=== PATIENT | male | born 1930 | race Caucasian/White ===

== ENCOUNTER → 2016-09-11 | Outpatient (CLI) | payer OTHER ==
[~2016-09-11] MED LIST: ACT15 PO; ACT30 PO; APIX1TAB3 PO; ATOR10TA88 PO; CALC600T36 PO; CALCTAB5 PO; CEFD1CAP14 PO; CEPH500C PO; COEN200C PO; DABI150C PO; DEXL60CA4 PO; DIGO0.1219 PO; DIGO0.122 PO; ESOM20CA PO; FLEC50TA20 PO; FLV400 PO; FOLI1TAB7 PO; FOLI800T PO; GLIP-197 PO; METO1TAB69 PO; MONT1TAB3 PO; MULT-506 PO; NEOM1SOL8 OTR; NTRGSL/4 UT; NXM/40 PO; PRLSR20 PO; RANI300T PO; TOBRSUS33 OT; TPRSR/100 PO; [UNRECOGNIZED DRUG - OTHER] PO
[2016-09-11 13:10] LABS: HEMATOCRIT 36.3 % (42-52); MEAN CELL VOLUME 97.8 fL (80-100); MEAN CORPUSCULAR HEMOGLOBIN 32.9 pg (25-34); MEAN CORPUSCULAR HGB CONC 33.6 g/dl (32-36); MEAN PLATELET VOLUME 10.6 fL (7.4-10.4); PLATELET COUNT 105 K/uL (130-400); RED BLOOD COUNT 3.71 M/uL (4.7-6.1); WHITE BLOOD COUNT 3.56 K/uL (4.8-10.8)
[2016-09-11 13:43] LABS: ESTIMATED AVERAGE GLUCOSE 143 mg/dl; HA1C FLAG Normal (Normal)
[2016-09-11 13:59] LABS: COMPLETE YES; LYMPH ABS # 0.72 K/uL (1.2-3.4); LYMPHOCYTE % 20.2 %; NEUTROPHILS % 45.6 %; VARIANT LYM ABS # 1.09 K/uL; VARIANT LYMPHOCYTE % 30.7 %
--- NOTE | 2016-09-15 11:24 | CODING QUERY MEDICAL NECESSITY ---
CQSUPPORTING DIAGNOSIS NEEDED A supporting diagnosis is required for the test/procedure performed on this patient in order for us to be reimbursed by the patient's insurance. Please provide a supporting diagnosis for the following test/procedure listed below next to the test name along with your signature. *If there is no additional diagnosis for this patient that would support the following test/procedure please document that below next to the test/procedure. Test(s)/Procedure(s) that require a supporting diagnosis: DOS 09/11/16 GLYCATED HEMOGLOBIN TEST Provider Signature: Date: Thank you Julissa Torres Health Information Management Once completed, please kindly fax back to [phone] For questions please call [phone]
== END | disposition home or self-care (01) ==
LOC: C.LAB1850 12:09
PROVIDERS: ATTEND Internal Medicine
DX: D64.9 Anemia, unspecified (principal); E11.9 Type 2 diabetes mellitus without complications

== ENCOUNTER → 2016-10-06 | Outpatient (CLI) | payer OTHER ==
[2016-10-06 13:11] LABS: MEAN CELL VOLUME 97.8 fL (80-100); MEAN CORPUSCULAR HEMOGLOBIN 32.9 pg (25-34); MEAN CORPUSCULAR HGB CONC 33.6 g/dl (32-36); MEAN PLATELET VOLUME 10.5 fL (7.4-10.4); PLATELET COUNT 110 K/uL (130-400); RED BLOOD COUNT 3.68 M/uL (4.7-6.1)
[2016-10-06 13:42] LABS: BASO ABS # 0.03 K/uL (0-0.2); BASOPHIL % 0.9 % (0-2); COMPLETE YES; EOSINOPHIL % 1.8 %; LYMPH ABS # 0.64 K/uL (1.2-3.4); LYMPHOCYTE % 16.8 %; NEUTROPHILS % 36.3 %; VARIANT LYM ABS # 1.44 K/uL
== END | disposition home or self-care (01) ==
LOC: C.LAB1850 12:19
PROVIDERS: ATTEND Internal Medicine
DX: I25.10 Atherosclerotic heart disease of native coronary artery without angina pectoris (principal); D64.9 Anemia, unspecified

== ENCOUNTER 2016-10-20 02:26 | Observation (INO) | payer OTHER ==
[~2016-10-20] VITALS: Ht 172.7 cm; Wt 93.6 kg
[~2016-10-20 02:26] MED LIST changes: -ACT15 PO; -ACT30 PO; -APIX1TAB3 PO; -CALC600T36 PO; -CEFD1CAP14 PO; -CEPH500C PO; -DIGO0.1219 PO; -ESOM20CA PO; -FOLI1TAB7 PO; -FOLI800T PO; -NXM/40 PO; -PRLSR20 PO; -TOBRSUS33 OT; -TPRSR/100 PO; -[UNRECOGNIZED DRUG - OTHER] PO
[2016-10-20] MEDS ORDERED: GLIP-197 PO (03:11)
[2016-10-20] MEDS ORDERED: ACT30 PO (03:15)
[2016-10-20] MEDS ORDERED: PRLSR20 PO (03:16)
[2016-10-20] MEDS ORDERED: CALCTAB5 PO (03:19)
[2016-10-20] MEDS ORDERED: FOLI1TAB7 PO (03:21)
[2016-10-20] MEDS ORDERED: DIGO0.1219 PO (03:25)
[2016-10-20 03:35] LABS: HEMATOCRIT 36.3 % (42-52); MEAN CELL VOLUME 99.2 fL (80-100); MEAN CORPUSCULAR HEMOGLOBIN 32.5 pg (25-34); MEAN CORPUSCULAR HGB CONC 32.8 g/dl (32-36); PLATELET COUNT 114 K/uL (130-400); RED BLOOD COUNT 3.66 M/uL (4.7-6.1); WHITE BLOOD COUNT 3.82 K/uL (4.8-10.8)
[2016-10-20 03:40] LABS: INR 1.2 (0.9-1.1); PARTIAL THROMBOPLASTIN RATIO 1.2; PROTHROMBIN TIME (PATIENT) 12.6 SECONDS (9.0-12.0)
[2016-10-20 03:45] LABS: ALT/SGPT 31 U/L (12-78); AST/SGOT 19 U/L (15-37); BLOOD UREA NITROGEN 33 mg/dl (7-18); BUN/CREATININE RATIO 21.8 (10-20); CALCIUM 8.7 mg/dl (8.5-10.1); CARBON DIOXIDE 29 mmol/L (21-32); CHLORIDE 107 mmol/L (98-107); GLUCOSE 112 mg/dl (70-99); POTASSIUM 4.1 mmol/L (3.5-5.1); SODIUM 143 mmol/L (136-145)
--- NOTE | 2016-10-20 03:48 | EMERGENCY ROOM VISIT NOTE ---
History Report prepared by Destiny: Ekta Dunn Under the Supervision of: Dr. Gin Ashley D.O. First contact with patient: 02:40 Chief Complaint: WEAKNESS Stated Complaint: CHEST PAIN,TONGUE SWOLLEN, TROUBLE WALKING Nursing Triage Summary: Patient drove to [facility] after waking with swelling in the right side of his tongue and lower jaw. Patient states "My tongue is very sore and swollen. I don't remember biting it or hurting myself at all. The pain goes into my right lower jaw and down the right side of my neck. I noticed the pain while getting ready for bed around 2300. When I got out of bed to use the restroom around 0200, I was stumbling around the room and felt like I was out of control of myself. I usually stumble a little but tonight, it was much worse." Patient denies falling or hitting his head at all this evening. Right side of tongue reddened and small wound noted to the tongue. Patient was on flecainide but it was stopped last week due to fluid retention. 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 The patient states that his current pain is a 6/10 in severity. He states he is also experiencing swelling of his tongue as well as chest discomfort. The patient states that after the pain started he got up from bed to go to the bathroom and he felt very lightheaded. He states he felt more fatigued and generalized weak today. He states he has had episodes of imbalance in the past but he states they have not been as severe as today. The patient denies any LOC, diaphoresis, nausea, vomiting, tingling or leg weakness. The patient states he has history of Atrial Fibrillation and has a pacemaker in place. He states he recently stopped taking Flecainide due to fluid retention. Source of History: patient Onset: 45 minutes Position: jaw Symptom Intensity: 6/10 Timing: constant Associated Symptoms: + chest pain, + weakness (generalized), No LOC, No diaphoresis, No nausea, No vomiting Note: Associated symptoms: increased fatigue, lightheaded Patient denies leg weakness Review of Systems See HPI for pertinent positives & negatives. A total of 10 systems reviewed and were otherwise negative. Past Medical & Surgical Medical Problems: (1) Atrial fibrillation (2) Benign hypertension (3) coronary bypass surgery (4) Diabetes mellitus (5) GERD (gastroesophageal reflux disease) (6) Heart disease (7) Hiatal hernia (8) Implantation of cardiac pacemaker (9) Kidney disease (10) Neck pain on right side (11) Pacemaker (12) Weakness Family History No significant family history Social History Smoking Status: Former Smoker Alcohol Use: occasionally Marital Status: single Housing Status: lives alone Occupation Status: retired Current/Historical Medications Scheduled Atorvastatin (Lipitor), 10 MG PO HS Calcium Carbonate (Caltrate 600), 600 MG PO DAILY Coenzyme Q10 (Ubidecarenone) (Coenzyme Q-10), 200 MG PO DAILY Dabigatran Etexilate Mesylate (Pradaxa), 150 MG PO BID Digoxin (Digox), 125 MCG PO DAILY Folic Acid (Folvite), 800 MG PO DAILY Glipizide (Glipizide Er), 10 MG PO QAM Glipizide (Glipizide Er), 5 MG PO DAILY Metoprolol Succ (Toprol Xl) (Toprol-Xl ), 100 MG PO BID Montelukast Sodium (Singulair), 10 MG PO HS Multivitamin (Multivitamin), 1 TAB PO DAILY Nitroglycerin (Nitrostat), 0.4 MG UT PRN Omeprazole (Prilosec), 20 MG PO BID Pioglitazone (Actos), 15 MG PO DAILY Ranitidine Hcl (Zantac), 300 MG PO UD Allergies Coded Allergies: Antihistamines, Diphenhydramine-typ (Verified Adverse Reaction, Intermediate, headaches, 10/20/16) Physical Exam Vital Signs Date Time Temp Pulse Resp B/P Pulse Ox O2 Delivery O2 Flow Rate FiO2 10/20/16 04:12 53 18 130/70 93 Room Air 10/20/16 02:39 65 10/20/16 02:36 95 Room Air 10/20/16 02:35 36.8 59 20 172/74 94 Room Air Physical Exam HEENT: Head - normocephalic and atraumatic Pupils are equal, round, and reactive to light. Extraocular eye muscles are intact, and sclera are anicteric. Nose - moist nasal mucosa without discharge. Mouth - moist buccal mucosa. swelling to right side of tongue with superficial laceration to tongue. Oropharynx is nonerythematous and there is no tonsillar exudate or edema noted. Neck: Supple; no JVD, nuchal rigidity, cervical lymphadenopathy, or auscultated bruits. Heart: Bradycardic rate and regular rhythm. There is a normal S1 and S2 with no murmurs, clicks, or gallops appreciated. Lungs: Clear to auscultation bilaterally with no wheezes, rales, or rhonchi. Abdomen: Soft, completely nontender, nondistended, with good bowel sounds. There are no palpable pulsatile masses or hepatosplenomegaly. There is no guarding, rigidity, or rebound noted. Extremities: No evidence of cyanosis, clubbing, or edema. There are easily palpable peripheral pulses. Skin: warm and dry with good turgor and no rashes. Medical Decision & Procedures ER Provider Diagnostic Interpretation: X-ray results as stated below per interpretation by me: Chest X-Ray: Pacing wires in place pacer appears in place. No cardiomegaly. No significant pulmonary findings. Preliminary Findings Only---See Final Report For Complete Findings: CT HEAD: Compared to 10/18/14 No acute intracranial process Minimal sinus disease Bilateral mastoid fluid. Radiologist: Cyndie Mckeon M.D Study ready at 0359 and initial result transmitted at 0407 Laboratory Results 10/20/16 02:40 Red Blood Count 3.66, Mean Corpuscular Volume 99.2, Mean Corpuscular Hemoglobin 32.5, Mean Corpuscular Hemoglobin Concent 32.8, Mean Platelet Volume 11.0 10/20/16 02:40 Test 10/20/16 02:40 White Blood Count 3.82 K/uL (4.8-10.8) Red Blood Count 3.66 M/uL (4.7-6.1) Hemoglobin 11.9 g/dL (14.0-18.0) Hematocrit 36.3 % (42-52) Mean Corpuscular Volume 99.2 fL (80-100) Mean Corpuscular Hemoglobin 32.5 pg (25-34) Mean Corpuscular Hemoglobin Concent 32.8 g/dl (32-36) Platelet Count 114 K/uL (130-400) Mean Platelet Volume 11.0 fL (7.4-10.4) RDW Standard Deviation 56.8 fL (36.4-46.3) RDW Coefficient of Variation 15.5 % (11.5-14.5) Neutrophils % (Manual) 46.9 % Lymphocytes % (Manual) 17.1 % Variant Lymphocytes % (manual) 22.5 % Monocytes % (Manual) 12.6 % Eosinophils % (Manual) 0.9 % Neutrophils # (Manual) 1.79 K/uL (1.4-6.5) Total Absolute Neutrophils 1.79 K/uL (1.4-6.5) Lymphocytes # (Manual) 0.65 K/uL (1.2-3.4) Absolute Variant Lymphocytes 0.86 K/uL Total Absolute Lymphocytes 1.51 K/uL (1.2-3.4) Monocytes # (Manual) 0.48 K/uL (0.11-0.59) Eosinophils # (Manual) 0.03 K/uL (0-0.5) Prothrombin Time 12.6 SECONDS (9.0-12.0) Prothromb Time International Ratio 1.2 (0.9-1.1) Activated Partial Thromboplast Time 30.2 SECONDS (21.0-31.0) Partial Thromboplastin Ratio 1.2 Anion Gap 7.0 mmol/L (3-11) Est Creatinine Clear Calc Drug Dose 38.5 ml/min Estimated GFR () 47.8 Estimated GFR (Non- 41.3 BUN/Creatinine Ratio 21.8 (10-20) Calcium Level 8.7 mg/dl (8.5-10.1) Total Bilirubin 0.5 mg/dl (0.2-1) Direct Bilirubin 0.2 mg/dl (0-0.2) Aspartate Amino Transf (AST/SGOT) 19 U/L (15-37) Alanine Aminotransferase (ALT/SGPT) 31 U/L (12-78) Alkaline Phosphatase 61 U/L (45-117) Total Creatine Kinase 60 U/L (39-308) Creatine Kinase MB 1.0 ng/ml (0.5-3.6) Creatine Kinase MB Ratio 1.7 (0-3.0) Troponin I < 0.015 ng/ml (0-0.045) Pro-B-Type Natriuretic Peptide 439 pg/ml (0-1800) Total Protein 6.6 gm/dl (6.4-8.2) Albumin 3.6 gm/dl (3.4-5.0) Laboratory results per my review. ECG Indication: weakness Rate (beats per minute): 58 Rhythm: other (atrial paced) Findings: RBBB, no acute ischemic change, no ectopy ED Course 0250: At this time the patient was evaluated by the medical student. The students findings were discussed with me. We discussed a possible treatment plan and differential diagnoses for the patient 0304:Past medical records reviewed. The patient was evaluated in room B9. A complete history and physical exam was performed. I reviewed the 12-lead EKG that was obtained. An IV lock had been initiated and labs were drawn as above. The patient had a CT scan of his brain as well as a chest x-ray performed. These were both unremarkable. 0410:I discussed the case with Dr. Maninder CALDWELL Hospitalist. He agreed to evaluate the patient for further management and care. 0419: I reviewed the results with the patient and he states his jaw pain as resolved. Medical Decision The patient is a 86 year old male who presents to the ED with jaw pain. Differential diagnosis includes CVA, TIA, vertigo, seizure, cardiac ischemia. Labs: White count 3.8 Hemoglobin 11.8 stable for him Platelet count 114 baseline BUN 31 Creatine 1.4 Glucose 112 LFT normal Cardiac enzymes negative Coags normal The patient awoke with some right-sided jaw pain and discomfort that went into his chest. Upon standing up and going to the bathroom, he noted significant difficulty with walking and he felt off balance. He stated that he was leaning towards the left for approximately 5 minutes. These symptoms have since resolved. He was able to drive himself here to the emergency department. I was concerned that this episode of imbalance may have been a TIA. The patient has no recollection of biting his tongue or injuring the right side of his tongue. I do not think he had a seizure or any loss of consciousness. I've discussed the case with the [facility] Hospitalist and they will evaluate for further management. Consults Time Called: [phone] Consulting Physician: Dr. Maninder CALDWELL Hospitalist Returned Call: [phone] I discussed the case with Dr. Maninder CALDWELL Hospitalist. He agreed to evaluate the patient for further management and care. Impression Primary Impression: TIA (transient ischemic attack) Additional Impression: Jaw pain Scribe Attestation The scribe's documentation has been prepared under my direction and personally reviewed by me in its entirety. I confirm that the note above accurately reflects all work, treatment, procedures, and medical decision making performed by me. Departure Information Dispostion Being Evaluated By Hospitalist Referrals Callum Hampton M.D. (PCP) Problem Qualifiers
[2016-10-20 03:51] LABS: ALKALINE PHOSPHATASE 61 U/L (45-117); CKMB/CK RATIO 1.7 (0-3.0)
[2016-10-20 04:10] LABS: COMPLETE YES; EOSINOPHIL % 0.9 %; LYMPH ABS # 0.65 K/uL (1.2-3.4); LYMPHOCYTE % 17.1 %; NEUTROPHILS % 46.9 %; VARIANT LYM ABS # 0.86 K/uL; VARIANT LYMPHOCYTE % 22.5 %
[2016-10-20] MEDS ORDERED: ALUMINUM/MAGNESIUM/SIMETH (MAALOX MAX) 30 ML UDC PO PRN (04:45)
[2016-10-20] MEDS ORDERED: NITROGLYCERIN 0.4 MG SL PER TAB CHARGE UT SCH (04:45)
[2016-10-20] MEDS ORDERED: ACETAMINOPHEN 325 MG TAB PO PRN (04:45)
[2016-10-20] MEDS ORDERED: NITROGLYCERIN 0.4 MG SL PER TAB CHARGE SL PRN (04:45)
[2016-10-20] MEDS ORDERED: ONDANSETRON INJ 2 MG/ML 2 ML VIAL IV PRN (04:45)
[2016-10-20] MEDS ORDERED: MoRPHine SULFATE 2 MG/ML CARP IV PRN (04:45)
[2016-10-20] MEDS ORDERED: MAGNESIUM HYDROXIDE SUSP 30 ML UDC PO PRN (04:45)
--- NOTE | 2016-10-20 05:04 | History and Physical ---
History & Physical Date & Time of Service: Oct 20, 2016 at 04:33 Chief Complaint: Chest Pain,Tongue Swollen, Trouble Walking Primary Care Physician: Callum Hampton M.D. History of Present Illness Source: patient Past Medical/Surgical History Medical Problems: (1) Atrial fibrillation Status: Chronic (2) Benign hypertension Status: Chronic (3) coronary bypass surgery Status: Resolved (4) Diabetes mellitus Status: Chronic (5) GERD (gastroesophageal reflux disease) Status: Chronic (6) Heart disease Status: Chronic (7) Hiatal hernia Status: Chronic (8) Implantation of cardiac pacemaker Status: Resolved (9) Kidney disease Status: Chronic (10) Pacemaker Status: Chronic Family History No significant family history This is an 86 yo m that is presenting to us with right sided neck pain and weakness that occurred at approx 0200 today. He states that this evening he started to suffer from a 8/10 right neck ache and it made it difficult for him to turn his head to the right. No alleviating factors noted. No radiation. Constant. He was awoken at 0200 because of this pain and decided to go to the bathroom. When he was walking to the bathroom he suddenly had left sided weakness and felt he was walking into the left and couldn't catch himself. Because of the intensity of the weakness he came to the ED for evaluation. W/U was negative in the ED but because the symptoms were so pronounced and concerning he was admitted to the hospital. He has a significant CVS history of CA and CABG in 1998. He is unsure of his last echo/ stress test. He is followed by Dr Duke. He also notes he has PAF and because his defibb noted an increased in a fibb his Flecainide was increased to a double dose two weeks prior. Because of fluid retention it was decided to completely d/c his Flecainide. Social History Smoking Status: Former Smoker Smokeless Tobacco Use: No Alcohol Use: occasionally Drug Use: none Marital Status: single Housing status: lives alone Occupational Status: retired Immunizations History of Influenza Vaccine: Yes Influenza Vaccine Date: Jul 20, 2010 History of Tetanus Vaccine?: Yes History of Pneumococcal: No Pneumococcal Date: Jun 13, 2006 History of Hepatitis B Vaccine: No Multi-Drug Resistant Organisms History of MDRO: No Allergies Coded Allergies: Antihistamines, Diphenhydramine-typ (Verified Adverse Reaction, Intermediate, headaches, 10/20/16) Home Medications Scheduled Atorvastatin (Lipitor), 10 MG PO HS Calcium Carbonate (Caltrate 600), 600 MG PO DAILY Coenzyme Q10 (Ubidecarenone) (Coenzyme Q-10), 200 MG PO DAILY Dabigatran Etexilate Mesylate (Pradaxa), 150 MG PO BID Digoxin (Digox), 125 MCG PO DAILY Folic Acid (Folvite), 800 MG PO DAILY Glipizide (Glipizide Er), 10 MG PO QAM Glipizide (Glipizide Er), 5 MG PO DAILY Metoprolol Succ (Toprol Xl) (Toprol-Xl ), 100 MG PO BID Montelukast Sodium (Singulair), 10 MG PO HS Multivitamin (Multivitamin), 1 TAB PO DAILY Nitroglycerin (Nitrostat), 0.4 MG UT PRN Omeprazole (Prilosec), 20 MG PO BID Pioglitazone (Actos), 15 MG PO DAILY Ranitidine Hcl (Zantac), 300 MG PO UD Review of Systems Constitutional: No fever Eyes: No worsening of vision ENT: No hearing loss Respiratory: No cough, No dyspnea at rest, No dyspnea on exertion, No shortness of breath, No sputum, No wheezing Cardiovascular: No chest pain Abdomen: No constipation, No diarrhea, No nausea, No pain, No vomiting Musculoskeletal: + muscle pain (right neck), No joint pain Neurologic: + balance problems, + weakness, No memory loss, No numbness/ tingling Endocrine: + fatigue Physical Exam Vital Signs Date Time Temp Pulse Resp B/P Pulse Ox O2 Delivery O2 Flow Rate FiO2 10/20/16 04:12 53 18 130/70 93 Room Air 10/20/16 02:39 65 10/20/16 02:36 95 Room Air 10/20/16 02:35 36.8 59 20 172/74 94 Room Air General Appearance: WD/WN, no apparent distress Head: normocephalic, atraumatic Eyes: normal inspection ENT: normal ENT inspection, + TM red (right ear perforation), + pertinent finding (except for a small lesion on right side of tongue, looks like he may have bit his tongue) Neck: supple, + pertinent finding (muscle contracture of right SCM) Respiratory/Chest: lungs clear, normal breath sounds, no respiratory distress, no accessory muscle use Cardiovascular: regular rate, rhythm, + systolic murmur (3/6) Abdomen/GI: normal bowel sounds, non tender, soft Back: normal inspection Extremities/Musculoskelatal: normal inspection, no calf tenderness, + pedal edema (L>R +1 bilat) 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, no motor/sensory deficits, alert, normal mood/affect, oriented x 3 Skin: normal color, warm/dry, no rash Lymphatic: no adenopathy Diagnostics Laboratory Results Results Past 24 Hours Test 10/20/16 02:40 Range/Units White Blood Count 3.82 4.8-10.8 K/uL Red Blood Count 3.66 4.7-6.1 M/uL Hemoglobin 11.9 14.0-18.0 g/dL Hematocrit 36.3 42-52 % Mean Corpuscular Volume 99.2 80-100 fL Mean Corpuscular Hemoglobin 32.5 25-34 pg Mean Corpuscular Hemoglobin Concent 32.8 32-36 g/dl Platelet Count 114 130-400 K/uL Mean Platelet Volume 11.0 7.4-10.4 fL RDW Standard Deviation 56.8 36.4-46.3 fL RDW Coefficient of Variation 15.5 11.5-14.5 % Neutrophils % (Manual) 46.9 % Lymphocytes % (Manual) 17.1 % Variant Lymphocytes % (manual) 22.5 % Monocytes % (Manual) 12.6 % Eosinophils % (Manual) 0.9 % Neutrophils # (Manual) 1.79 1.4-6.5 K/uL Total Absolute Neutrophils 1.79 1.4-6.5 K/uL Lymphocytes # (Manual) 0.65 1.2-3.4 K/uL Absolute Variant Lymphocytes 0.86 K/uL Total Absolute Lymphocytes 1.51 1.2-3.4 K/uL Monocytes # (Manual) 0.48 0.11-0.59 K/uL Eosinophils # (Manual) 0.03 0-0.5 K/uL Prothrombin Time 12.6 9.0-12.0 SECONDS Prothromb Time International Ratio 1.2 0.9-1.1 Activated Partial Thromboplast Time 30.2 21.0-31.0 SECONDS Partial Thromboplastin Ratio 1.2 Sodium Level 143 136-145 mmol/L Potassium Level 4.1 3.5-5.1 mmol/L Chloride Level 107 98-107 mmol/L Carbon Dioxide Level 29 21-32 mmol/L Anion Gap 7.0 3-11 mmol/L Blood Urea Nitrogen 33 7-18 mg/dl Creatinine 1.50 0.60-1.40 mg/dl Est Creatinine Clear Calc Drug Dose 38.5 ml/min Estimated GFR () 47.8 Estimated GFR (Non- 41.3 BUN/Creatinine Ratio 21.8 10-20 Random Glucose 112 70-99 mg/dl Calcium Level 8.7 8.5-10.1 mg/dl Total Bilirubin 0.5 0.2-1 mg/dl Direct Bilirubin 0.2 0-0.2 mg/dl Aspartate Amino Transf (AST/SGOT) 19 15-37 U/L Alanine Aminotransferase (ALT/SGPT) 31 12-78 U/L Alkaline Phosphatase 61 45-117 U/L Total Creatine Kinase 60 39-308 U/L Creatine Kinase MB 1.0 0.5-3.6 ng/ml Creatine Kinase MB Ratio 1.7 0-3.0 Troponin I < 0.015 0-0.045 ng/ml Pro-B-Type Natriuretic Peptide 439 0-1800 pg/ml Total Protein 6.6 6.4-8.2 gm/dl Albumin 3.6 3.4-5.0 gm/dl Impression Assessment and Plan This is an 86 yo m that is suffering from dizziness, weakness and a right sided OM. Weakness possibly secondary to rt om vs arrhythmia vs neurovascular disease - tele admission - MRI brain - carotid dopplers - echo - troponin repeat Rt OM with right TM perf - Rocephin x 1 in ED - Tobradex drops AF - continue pradaxa- most likely causing alterations in plt and inr -digoxin level - continue metoprolol and digoxin CHF - cont digoxin - cont atorvastatin CKD III- stable - renally dose - follow bmp DMII - ISS - BSG AC/HS - oral home meds held DVT Prophylaxis - pradaxa FULL CODE Level of Care Telemetry Resuscitation Status FULL RESUSCITATION VTE Prophylaxis Given or contraindicated: Other Anticoagulation Social Service Consult >80 yr.& Lives Alone Note Total Time: Critical Care 30 - 74 minutes Additional Copies To Callum Hampton M.D. Assessment and Plan Attending Addendum: I have physically seen and examined this patient, have directed their medical care, have supervised the medical residents activities, and agree with the H&P as noted above, with the following changes: NONE The patient is awake, well-developed and adequately nourished, alert and oriented 3, normocephalic and atraumatic, lying in bed and in no acute distress. HEENT--PERRL, EOMI, mucous membranes and oropharynx dry. Right tympanic membrane with old healed perforation, with mild erythema. Left TM is normal Neck--supple, no JVD or bruits, thyroid normal, trachea midline, no adenopathy. Heart--normal S1 and S2, no extra beats, no murmurs, rubs or gallops. Lungs--clear bilaterally with good air movement, no respiratory distress, no accessory muscle use. Abdomen--normal bowel sounds and soft, nontender and nondistended, no hernias or masses, no organomegaly. Extremities--no cyanosis, clubbing or edema. There are good distal pulses b/l. Dermatologic--normal skin turgor, normal color, warm and dry, no abnormal lymph nodes, no rash. Neurologic--cranial nerves II through XII grossly intact, motor and sensory examination normal. Rheumatologic--normal range of motion, nontender, muscles and joints. Psychiatric--normal affect. Assessment and Plan: Imbalance--differential includes right otitis media, atrial fibrillation, and TIA--the patient be admitted to the telemetry unit for serial cardiac enzymes, cardiac rhythm monitoring and a 2-D echocardiogram with Dopplers and carotid Dopplers. Right otitis media--TobraDex 2 drops in right ear twice a day, and a single dose of ceftriaxone 1 g IV today. Atrial fibrillation/CABG/CAD/ICD--the patient will be continued on Pradaxa 150 mg by mouth twice a day, digoxin 125 g by mouth daily and check a level, metoprolol succinate 100 mg by mouth twice a day, and nitroglycerin sublinguals when necessary. Hypercholesterolemia--continue atorvastatin 10 mg by mouth at bedtime. Diabetes mellitus--continue glipizide ER 10 mg by mouth every morning and 5 mg by mouth every afternoon, and pioglitazone 15 mg by mouth daily. We'll place on Accu-Cheks before meals and at bedtime with NovoLog coverage. His GERD--continue ranitidine 300 mg by mouth at bedtime, and change omeprazole 20 mg by mouth twice a day to pantoprazole 40 mg by mouth twice a day. Allergy--continue Sinemet 10 mg by mouth at bedtime. Nutraceuticals--continue calcium carbonate, coenzyme Q 10, folic acid, and multivitamin daily.
[2016-10-20] MEDS ORDERED: CEFTRIAXONE SOD 350MG/ML 1 GM VIAL IM ONE (05:08)
[2016-10-20] MEDS ORDERED: CEFTRIAXONE SOD INJ 1 GM ADDVIAL ONE (05:08)
[2016-10-20] MEDS ORDERED: IV FLUIDS COMPLETED PRN (05:15)
[2016-10-20 06:13] VITALS: BP 170/81; PULSE 70; TEMP 36.8; O2SAT 91; BMI 31.4
[2016-10-20] MEDS ORDERED: PNEUMOCOCCAL ADMINISTRATION CHARGE ONE (06:30)
[2016-10-20] MEDS ORDERED: PNEUMOCOCCAL POLYSACCHARIDES 25 MCG/0.5 ML VIAL/SYR IM. ONE (06:30)
--- NOTE | 2016-10-20 06:32 | DIAGNOSTIC IMAGING REPORT ---
CT HEAD WITHOUT CONTRAST (CT) CLINICAL HISTORY: Change in mental status. Loss of balance. COMPARISON STUDY: 10/28/2014 TECHNIQUE: Axial CT of the brain is performed from the vertex to the skull base. IV contrast was not administered for this examination. CT DOSE: 537.48 mGy.cm FINDINGS: No intra or extra-axial mass lesions are visualized. There is no CT evidence of acute cortical infarction. There is no evidence of midline shift. There is no acute hemorrhage. No calvarial fractures are visualized. There are patchy white matter hypodensities likely on a small vessel basis. There is no evidence of pathologic ventricular dilatation. There are minimal mastoid effusions. There is minor mucosal thickening within the ethmoid sinuses. IMPRESSION: No acute intracranial findings Electronically signed by: Surinder Porter M.D. 10/20/2016 6:31 AM Dictated Date/Time: 10/20/2016 6:29 AM
--- NOTE | 2016-10-20 06:36 | DIAGNOSTIC IMAGING REPORT ---
CHEST ONE VIEW PORTABLE CLINICAL HISTORY: cp dyspnea COMPARISON STUDY: 06/08/2015 FINDINGS: Mild stable cardiomegaly. Small fixed lateral hernia. Bipolar cardiac pacemaker. Lungs are clear. IMPRESSION: No acute process. Small fixed lateral hernia. Platelike atelectasis left base. Electronically signed by: Eber Tucker M.D. 10/20/2016 6:35 AM Dictated Date/Time: 10/20/2016 6:34 AM
[2016-10-20 07:31] VITALS: BP 148/66; PULSE 54; TEMP 36.8; O2SAT 94
[2016-10-20 08:00] VITALS: O2SAT 94
[2016-10-20] MEDS ORDERED: GlipiZIDE 5 MG TABCR (GLUCOTROL XL) PO SCH ×2 (08:00→17:00)
--- NOTE | 2016-10-20 08:13 | DIAGNOSTIC IMAGING REPORT ---
BILATERAL CAROTID DOPPLER STUDY HISTORY: Dyspnea weakness COMPARISON: 10/28/2014 TECHNIQUE: Real-time, grayscale, and color Doppler sonography of the carotid arteries was performed. Imaging reviewed in the transverse and longitudinal planes. All measurements were calculated based on NASCET criteria. FINDINGS: Antegrade flow is seen in the bilateral vertebral arteries. The brachial pressures are hemodynamically similar. Moderate plaque formation bilaterally The peak systolic velocity within the right ICA is 71. The right systolic ratio is 0.7. The peak systolic velocity within the left ICA is 74. The left systolic ratio is 0.8. IMPRESSION: No hemodynamically significant stenosis seen within the carotid arteries.. Moderate plaque dimension bilaterally. Electronically signed by: Eber Tucker M.D. 10/20/2016 8:12 AM Dictated Date/Time: 10/20/2016 8:09 AM
[2016-10-20] MEDS ORDERED: TOBRAMYCIN/DEXAMETHASONE OPH SUSP 2.5 ML BTL OT SCH (09:00)
[2016-10-20] MEDS ORDERED: CALCIUM 600MG + VIT D 400 IU TAB PO SCH (09:00)
[2016-10-20] MEDS ORDERED: MULTIVITAMIN TAB PO SCH (09:00)
[2016-10-20] MEDS ORDERED: FoLIC ACID TAB 400 MCG TAB PO SCH (09:00)
[2016-10-20] MEDS ORDERED: DABIGATRAN ELEXILATE 75 MG CAP PO SCH (09:00)
[2016-10-20] MEDS ORDERED: COENZYME Q10 200 MG PO SCH (09:00)
[2016-10-20] MEDS ORDERED: PANTOprazole SOD 40 MG TAB PO SCH (09:00)
[2016-10-20] MEDS ORDERED: METOPROLOL SUCC 50MG EXT REL TAB PO SCH (09:00)
[2016-10-20] MEDS ORDERED: PIOGLITAZONE TAB 15 MG TAB PO SCH (09:00)
[2016-10-20] MEDS ORDERED: CEFD1CAP14 PO (10:37)
[2016-10-20] MEDS ORDERED: TOBRSUS33 OT (10:37)
--- NOTE | 2016-10-20 10:38 | Discharge Instructions ---
Discharge Instructions Admission Reason for Admission: Neck Pain On Right Side, Weakness Discharge Discharge Diagnosis / Problem: Right ear infection Discharge Goals Goal(s): Diagnostic testing, Therapeutic intervention Activity Recommendations Activity Limitations: resume your previous activity . Current Hospital Diet Patient's current hospital diet: Diabetes Type 2 Diet, AHA Diet (Heart Healthy) Discharge Diet Recommended Diet: AHA Diet (Heart Healthy), Diabetes Type 2 Diet Pending Studies Studies pending at discharge: no Laboratory Results Hemoglobin A1c Test 09/11/16 12:12 Range/Units Estimated Average Glucose 143 mg/dl Hemoglobin A1c 6.6 H 4.5-5.6 % Medical Emergencies . Who to Call and When: Medical Emergencies: If at any time you feel your situation is an emergency, please call 911 immediately. . Non-Emergent Contact Non-Emergency issues call your: Primary Care Provider . . "Provider Documentation" section prepared by Corwin Sabillon. VTE Core Measure Inpt VTE Proph given/why not?: Other Anticoagulation
[2016-10-20 10:45] VITALS: Ht 172.7 cm; Wt 93.6 kg
[2016-10-20 10:46] VITALS: BP 148/66; PULSE 54; TEMP 36.8; O2SAT 94
[2016-10-20] MEDS ORDERED: DIGOXIN 0.125 MG TAB PO SCH (16:00)
--- NOTE | 2016-10-20 16:37 | Discharge Summary ---
Discharge Summary Admission Date: Oct 20, 2016 at 04:46 Discharge Date: Oct 20, 2016 Immunizations: Have You Had Influenza Vaccine: Yes Influenza Vaccine Date: Jul 20, 2010 History of Tetanus Vaccine?: Yes History of Pneumococcal: No Pneumococcal Date: Jun 13, 2006 History of Hepatitis B Vaccine: No Procedures: CT HEAD WITHOUT CONTRAST (CT) CLINICAL HISTORY: Change in mental status. Loss of balance. COMPARISON STUDY: 10/28/2014 TECHNIQUE: Axial CT of the brain is performed from the vertex to the skull base. IV contrast was not administered for this examination. CT DOSE: 537.48 mGy.cm FINDINGS: No intra or extra-axial mass lesions are visualized. There is no CT evidence of acute cortical infarction. There is no evidence of midline shift. There is no acute hemorrhage. No calvarial fractures are visualized. There are patchy white matter hypodensities likely on a small vessel basis. There is no evidence of pathologic ventricular dilatation. There are minimal mastoid effusions. There is minor mucosal thickening within the ethmoid sinuses. IMPRESSION: No acute intracranial findings Electronically signed by: Surinder Porter M.D. 10/20/2016 6:31 AM CHEST ONE VIEW PORTABLE CLINICAL HISTORY: cp dyspnea COMPARISON STUDY: 06/08/2015 FINDINGS: Mild stable cardiomegaly. Small fixed lateral hernia. Bipolar cardiac pacemaker. Lungs are clear. IMPRESSION: No acute process. Small fixed lateral hernia. Platelike atelectasis left base. Electronically signed by: Eber Tucker M.D. 10/20/2016 6:35 AM Dictated Date/Time: 10/20/2016 6:34 AM [~ rep ct add3]] BILATERAL CAROTID DOPPLER STUDY HISTORY: Dyspnea weakness COMPARISON: 10/28/2014 TECHNIQUE: Real-time, grayscale, and color Doppler sonography of the carotid arteries was performed. Imaging reviewed in the transverse and longitudinal planes. All measurements were calculated based on NASCET criteria. FINDINGS: Antegrade flow is seen in the bilateral vertebral arteries. The brachial pressures are hemodynamically similar. Moderate plaque formation bilaterally The peak systolic velocity within the right ICA is 71. The right systolic ratio is 0.7. The peak systolic velocity within the left ICA is 74. The left systolic ratio is 0.8. IMPRESSION: No hemodynamically significant stenosis seen within the carotid arteries.. Moderate plaque dimension bilaterally. Electronically signed by: Eber Tucker M.D. 10/20/2016 8:12 AM Dictated Date/Time: 10/20/2016 8:09 AM Last Resulted CBC 10/20/16 02:40 Red Blood Count 3.66, Mean Corpuscular Volume 99.2, Mean Corpuscular Hemoglobin 32.5, Mean Corpuscular Hemoglobin Concent 32.8, Mean Platelet Volume 11.0 Last Resulted BMP 10/20/16 02:40 Medication Reconciliation New Medications: Cefdinir (Omnicef) 300 Mg Cap 300 MG PO DAILY, #7 CAP Tobramycin-Dexamethasone (Tobradex 0.3% Oph Susp) 1 Lizeth Lizeth 2 DROPS OT QID, #15 ML Continued Medications: Atorvastatin (Lipitor) 10 Mg Tab 10 MG PO HS Calcium Carbonate (Caltrate 600) 1,500 Mg Tab 600 MG PO DAILY Coenzyme Q10 (Ubidecarenone) (Coenzyme Q-10) 200 Mg Cap 200 MG PO DAILY Dabigatran Etexilate Mesylate (Pradaxa) 150 Mg Cap 150 MG PO BID, CAP Digoxin (Digox) 125 Mcg Tab 125 MCG PO DAILY Folic Acid (Folvite) 1 Mg Tab 800 MG PO DAILY, TAB Glipizide (Glipizide Er) 5 Mg Tab 10 MG PO QAM Glipizide (Glipizide Er) 5 Mg Tab 5 MG PO DAILY for 90 Days, #90 TAB 3 Refills takes with evening meal Metoprolol Succ (Toprol Xl) (Toprol-Xl ) 100 Mg Tabcr 100 MG PO BID Montelukast Sodium (Singulair) 10 Mg Tab 10 MG PO HS, TAB Multivitamin (Multivitamin) Tab 1 TAB PO DAILY, 0 Refills Nitroglycerin (Nitrostat) 0.4 Mg Tab 0.4 MG UT PRN, BTL Omeprazole (Prilosec) 20 Mg Capcr 20 MG PO BID, CAP takes 1 pill in am then takes 2nd pill 4 hours later Pioglitazone (Actos) 30 Mg Tab 15 MG PO DAILY for 90 Days, #45 TAB 3 Refills Ranitidine Hcl (Zantac) 300 Mg Tab 300 MG PO UD, #90 AT 8PM EVERY EVENING Discharge Exam Physical Exam: General Appearance: no apparent distress ENT: + pertinent finding (R ear TM erythematous with some exudate, perforation in middle of TM (he notes chronic)) Neck: trachea midline Respiratory/Chest: no respiratory distress, no accessory muscle use Neurologic/Psychiatric: director drug II-XII nml as tested, no motor/sensory deficits , alert, normal mood/affect, oriented x 3 Skin: normal color, warm/dry Hospital Course jaw and ear pain, unsteadiness -notes no numbness or weakness - just that he was unsteady -started w jaw pain on same side -has chronic perforation, eustacian tube dysfunction -appears related to ear infection -CT head, carotids without telling findings; already on anticoagulation for afib. discussed and he and i both agree that further neurovascular w/u without stroke like features seems unlikely Rt OM with right TM perf - Rocephin x 1 in ED --> transition to PO cefdinir - Tobradex drops AF - continue pradaxa- most likely causing alterations in plt and inr -digoxin level 1.1 - continue close ongoing outpt f/u w PCP and cardiology CKD III- stable - renally dose meds (was borderline on cefdinir - since getting tobradex drops and TM perforated, moved to lower dosing w renal function) - follow bmp DMII - home meds DVT Prophylaxis - pradaxa FULL CODE, stable for discharge home sees ENT sunday, PCP later next week, cardiology f/u already scheduled as well Total Time Spent: Greater than 30 minutes This includes examination of the patient, discharge planning, medication reconciliation, and communication with other providers. Discharge Instructions Please refer to the electronic Patient Visit Report (Discharge Instructions) for additional information. Additional Copies To Callum Hampton M.D.
[2016-10-20] MEDS ORDERED: NON-FORMULARY MEDICATION (Ranitidine Hcl (Zantac) 300 MG) PO SCH (20:00)
[2016-10-20] MEDS ORDERED: RANITIDINE HCL 150 MG TAB PO SCH (20:00)
[2016-10-20] MEDS ORDERED: ATORVASTATIN 10 MG TAB PO SCH (21:00)
[2016-10-20] MEDS ORDERED: MONTELUKAST SOD 10 MG TAB PO SCH (21:00)
[2016-10-21] MEDS ORDERED: CEFTRIAXONE SOD INJ 1 GM in DEXTROSE 5% ADD-VANTAGE 50ML 50 ML IV SCH (06:00)
== END 2016-10-20 11:17 | disposition home or self-care (01) ==
LOC: ENRESERVDT → ENRESERVTM → CANRESERV → C.EDB 02:27 → C.MED 04:46
PROVIDERS: ADMIT Hospitalist; ATTEND Family Medicine
DX: H72.91 Unspecified perforation of tympanic membrane, right ear (principal); H66.91 Otitis media, unspecified, right ear; R68.84 Jaw pain; E11.9 Type 2 diabetes mellitus without complications; E78.00 Pure hypercholesterolemia, unspecified; I25.2 Old myocardial infarction; I45.10 Unspecified right bundle-branch block; I25.10 Atherosclerotic heart disease of native coronary artery without angina pectoris; I48.0 Paroxysmal atrial fibrillation; I50.9 Heart failure, unspecified; K21.9 Gastro-esophageal reflux disease without esophagitis; N18.3 Chronic kidney disease, stage 3 (moderate); Z87.891 Personal history of nicotine dependence; Z95.1 Presence of aortocoronary bypass graft; Z95.0 Presence of cardiac pacemaker; R26.81 Unsteadiness on feet; I12.9 Hypertensive chronic kidney disease with stage 1 through stage 4 chronic kidney disease, or unspecified chronic kidney disease

== ENCOUNTER → 2016-10-27 | Outpatient (CLI) | payer OTHER ==
[~2016-10-27] MED LIST changes: +ACT15 PO; +ACT30 PO; +APIX1TAB3 PO; +CALC600T36 PO; +CEFD1CAP14 PO; +CEPH500C PO; -DEXL60CA4 PO; +DIGO0.1219 PO; -DIGO0.122 PO; +ESOM20CA PO; -FLEC50TA20 PO; -FLV400 PO; +FOLI1TAB7 PO; +FOLI800T PO; -NEOM1SOL8 OTR; +NXM/40 PO; +PRLSR20 PO; +TOBRSUS33 OT; +TPRSR/100 PO; +[UNRECOGNIZED DRUG - OTHER] PO
[2016-10-27 16:18] LABS: HEMATOCRIT 35.9 % (42-52); MEAN CORPUSCULAR HEMOGLOBIN 32.6 pg (25-34); MEAN PLATELET VOLUME 10.3 fL (7.4-10.4); PLATELET COUNT 119 K/uL (130-400); RED BLOOD COUNT 3.74 M/uL (4.7-6.1); WHITE BLOOD COUNT 4.34 K/uL (4.8-10.8)
[2016-10-27 17:01] LABS: BASO ABS # 0.04 K/uL (0-0.2); BASOPHIL % 0.9 % (0-2); COMPLETE YES; LYMPH ABS # 1.27 K/uL (1.2-3.4); LYMPHOCYTE % 29.2 %; MICROCYTOSIS PRESENT; NEUTROPHILS % 33.6 %
== END | disposition home or self-care (01) ==
LOC: C.LAB1850 15:35
PROVIDERS: ATTEND Internal Medicine
DX: K14.6 Glossodynia (principal)

== ENCOUNTER 2016-11-17 08:08 | Emergency (ER) | payer OTHER ==
[~2016-11-17] VITALS: Ht 172.7 cm; Wt 92.8 kg
[~2016-11-17 08:08] MED LIST changes: -ACT15 PO; -APIX1TAB3 PO; -CALC600T36 PO; -CEPH500C PO; -ESOM20CA PO; -FOLI800T PO; -NXM/40 PO; -TPRSR/100 PO; -[UNRECOGNIZED DRUG - OTHER] PO
[2016-11-17 08:13] VITALS: Ht 172.7 cm; Wt 92.8 kg
[2016-11-17] MEDS ORDERED: ESOM20CA PO (08:35)
[2016-11-17] MEDS ORDERED: AMPICILLIN/SULBACTAM SOD INJ 3,000 MG in SODIUM CHLORIDE 0.9% 100ML 100 ML IV ONE (08:45)
[2016-11-17] MEDS ORDERED: DIPHTHERIA/TETANUS/PERTUSSIS 0.5 ML SYR/VIAL IM. ONE (08:45)
--- NOTE | 2016-11-17 09:01 | EMERGENCY ROOM VISIT NOTE ---
History Report prepared by Destiny: Dian Joyner Under the Supervision of: Dr. Star Parr M.D. First contact with patient: 08:17 Chief Complaint: SWELLING TO EXTREMITY Stated Complaint: SLPINTER IN RIGHT HAND SWOLLEN History of Present Illness The patient is an 86 year old male who presents to the Emergency Room with complaints of persistent swelling in the fingers of his right hand starting this morning. He reports that he was working with fiber glass yesterday when it shattered and he got a splinter in his hand. He removed one splinter which was smaller than the tip of a toothpick, then disinfected and bandaged the wound. When he woke up this morning, his finger was swollen and he was experiencing pain in his fingers. He believes that he might have more splinters. 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 Patient reports having a subjective fever last night, which he could not detect through measurement, but reports feeling flushed. He also mentions that his blood sugar is slightly elevated. Patient denies any shortness of breath, chest pain, or chills. He states that he is unsure whether his tetanus vaccine is up to date. Source of History: patient Onset: this morning Position: finger(s) Timing: other (persistent) Associated Symptoms: + fevers, No SOB, No chest pain, No chills Note: Pt notes blood sugar is slightly elevated. Review of Systems See HPI for pertinent positives & negatives. A total of 10 systems reviewed and were otherwise negative. Past Medical & Surgical Medical Problems: (1) Atrial fibrillation (2) Benign hypertension (3) coronary bypass surgery (4) Diabetes mellitus (5) GERD (gastroesophageal reflux disease) (6) Heart disease (7) Hiatal hernia (8) Implantation of cardiac pacemaker (9) Kidney disease (10) Neck pain on right side (11) Pacemaker (12) Weakness Family History No significant family history Social History Smoking Status: Former Smoker Alcohol Use: occasionally Drug Use: none Marital Status: single Housing Status: lives alone Occupation Status: retired Current/Historical Medications Scheduled Atorvastatin (Lipitor), 10 MG PO HS Calcium Carbonate (Caltrate 600), 600 MG PO DAILY Cephalexin Monohydrate (Keflex), 500 MG PO QID Coenzyme Q10 (Ubidecarenone) (Coenzyme Q-10), 200 MG PO DAILY Dabigatran Etexilate Mesylate (Pradaxa), 150 MG PO BID Digoxin (Digox), 125 MCG PO DAILY Esomeprazole Magnesium (Nexium), 20 MG PO BID Folic Acid (Folvite), 800 MG PO DAILY Glipizide (Glipizide Er), 10 MG PO QAM Glipizide (Glipizide Er), 5 MG PO DAILY Metoprolol Succ (Toprol Xl) (Toprol-Xl ), 100 MG PO BID Montelukast Sodium (Singulair), 10 MG PO HS Multivitamin (Multivitamin), 1 TAB PO DAILY Nitroglycerin (Nitrostat), 0.4 MG UT PRN Pioglitazone (Actos), 15 MG PO DAILY Ranitidine Hcl (Zantac), 300 MG PO UD Allergies Coded Allergies: Antihistamines, Diphenhydramine-typ (Verified Adverse Reaction, Intermediate, headaches, 10/20/16) Physical Exam Vital Signs Date Time Temp Pulse Resp B/P Pulse Ox O2 Delivery O2 Flow Rate FiO2 11/17/16 14:21 75 18 137/66 96 11/17/16 13:35 55 20 167/68 97 Room Air 11/17/16 11:35 60 18 154/62 95 Room Air 11/17/16 09:38 36.6 64 16 146/66 97 Room Air 11/17/16 08:13 36.9 68 18 136/58 91 Room Air Physical Exam GENERAL: Patient is in no acute distress. HEENT: No acute trauma, normocephalic atraumatic, mucous membranes moist, no nasal congestion, no scleral icterus. NECK: No stridor, no adenopathy, no meningismus, trachea is midline. LUNGS: Clear to auscultation bilaterally, no wheeze, no rhonchi, breath sounds equal. HEART: 2 over 6 systolic murmur, regular rate, regular rhythm. ABDOMEN: Soft, nontender, bowel sounds positive, no hernias, no peritonitis. EXTREMITIES: Mild bilateral pedal edema. There is a skin break consistent with prior foreign body on the palmar aspect of the right hand just proximal to fifth finger. There is erythema spreading across the palm to the base of the third and fourth finger. Warmth is noted. No drainage or obvious foreign body. Significant discomfort with extension of the third and fourth fingers, especially the fourth. No neurovascular compromise. NEUROLOGIC: Oriented x 3, no acute motor or sensory deficits, no focal weakness. SKIN: No rash, no jaundice, no diaphoresis. Medical Decision & Procedures ER Provider Diagnostic Interpretation: Radiology results and stated below per my review and radiologist interpretation. X-ray results as stated below per interpretation by me and the radiologist: : Ultrasound right hand RIGHT EXTREMITY NONVASCULAR LIMITED CLINICAL HISTORY: right hand, posse feb Right foreign body. Trauma. TECHNIQUE: Ultrasound COMPARISON STUDY: None FINDINGS: Ultrasound and adjacent to the fifth metacarpal demonstrates a linear foreign body measuring 8 mm maximum linear dimension. This is immediately adjacent to what appears to be the entry point of the skin surface. IMPRESSION: 8 mm linear foreign body within the subcutaneous tissues adjacent to the entry point at the distal fifth metacarpal level Electronically signed by: Eber Tucker M.D. 11/17/2016 9:34 AM Dictated Date/Time: 11/17/2016 9:33 AM RIGHT HAND MIN 3 VIEWS ROUTINE CLINICAL HISTORY: feb hand Right trauma. Foreign body. COMPARISON: None. DISCUSSION: Moderate degenerative changes throughout. Mild soft tissue edematous change. No well-defined evidence for radiopaque foreign body. IMPRESSION: Soft tissue edema. Degenerative change. No well-defined radiopaque foreign body or acute bony abnormality Electronically signed by: Eber Tucker M.D. 11/17/2016 12:11 PM Dictated Date/Time: 11/17/2016 12:06 PM Laboratory Results 11/17/16 08:50 Red Blood Count 3.67, Mean Corpuscular Volume 95.6, Mean Corpuscular Hemoglobin 32.7, Mean Corpuscular Hemoglobin Concent 34.2, Mean Platelet Volume 10.2, Neutrophils (%) (Auto) 40.7, Lymphocytes (%) (Auto) 42.9, Monocytes (%) (Auto) 15.2, Eosinophils (%) (Auto) 0.6, Basophils (%) (Auto) 0.2, Neutrophils # (Auto ) 1.95, Lymphocytes # (Auto) 2.06, Monocytes # (Auto) 0.73, Eosinophils # (Auto ) 0.03, Basophils # (Auto) 0.01 11/17/16 08:50 Test 11/17/16 08:50 White Blood Count 4.80 K/uL (4.8-10.8) Red Blood Count 3.67 M/uL (4.7-6.1) Hemoglobin 12.0 g/dL (14.0-18.0) Hematocrit 35.1 % (42-52) Mean Corpuscular Volume 95.6 fL (80-100) Mean Corpuscular Hemoglobin 32.7 pg (25-34) Mean Corpuscular Hemoglobin Concent 34.2 g/dl (32-36) Platelet Count 118 K/uL (130-400) Mean Platelet Volume 10.2 fL (7.4-10.4) Neutrophils (%) (Auto) 40.7 % Lymphocytes (%) (Auto) 42.9 % Monocytes (%) (Auto) 15.2 % Eosinophils (%) (Auto) 0.6 % Basophils (%) (Auto) 0.2 % Neutrophils # (Auto) 1.95 K/uL (1.4-6.5) Lymphocytes # (Auto) 2.06 K/uL (1.2-3.4) Monocytes # (Auto) 0.73 K/uL (0.11-0.59) Eosinophils # (Auto) 0.03 K/uL (0-0.5) Basophils # (Auto) 0.01 K/uL (0-0.2) RDW Standard Deviation 55.4 fL (36.4-46.3) RDW Coefficient of Variation 15.9 % (11.5-14.5) Immature Granulocyte % (Auto) 0.4 % Immature Granulocyte # (Auto) 0.02 K/uL (0.00-0.02) Prothrombin Time 12.9 SECONDS (9.0-12.0) Prothromb Time International Ratio 1.2 (0.9-1.1) Activated Partial Thromboplast Time 30.4 SECONDS (21.0-31.0) Partial Thromboplastin Ratio 1.2 Anion Gap 8.0 mmol/L (3-11) Est Creatinine Clear Calc Drug Dose 41.1 ml/min Estimated GFR () 52.0 Estimated GFR (Non- 44.9 BUN/Creatinine Ratio 26.4 (10-20) Calcium Level 9.0 mg/dl (8.5-10.1) Laboratory results reviewed by me. Medications Administered Medications (Trade) Dose Ordered Sig/Jana Route Start Time Stop Time Status Last Admin Dose Admin Ampicillin Sodium/ Sulbactam Sodium/ Sodium Chloride (Unasyn Inj/Nss 100ml) 108 ml @ 200 mls/hr ONE ONCE IV 11/17/16 08:45 11/17/16 09:17 DC 11/17/16 08:58 200 MLS/HR Procedure Foreign body removal: Using sterile technique and lidocaine without epinephrine , the right hand was prepped. Using an 11 blade scalpel, a 0.5 ml superficial opening was made. Using forceps, an 8 mm splinter-like foreign body was removed. No complications. ED Course 0837: The patient was evaluated in room B3. A complete history and physical exam was performed. 0845: Adacel Inj 0.5 ml IM, Ampicillin Sodium/Sulbactam Sodium 3000 mg/Sodium Chloride 108 ml @ 200 mls/hr IV. 0911: I received information that the patient received his tetanus shot in March 2014. The tetanus shot we intended to give him in the ED was cancelled. 0945: Lidocaine HCl 20 ml INFIL. 0950: I reevaluated the patient. He is resting comfortably. 1010: I removed the foreign body from his hand according to the procedure in the procedure note. He has tolerated the procedure well. 1119: I discussed the patient's case with Dr. Diana, [facility]. He requests that an X-ray be taken. He will come or send someone to the ED to evaluate the patient. 1400: I discussed the patient's case with Dr. Diana, [facility]. The patient will be discharged home. 1404: I reevaluated the patient. He is resting comfortably. I discussed the results and treatment plan with him. He verbalized understanding and agreement. He will be discharged home. Medical Decision Differential diagnoses: tenosynovitis, cellulitis, retained foreign body, neurovascular compromise, compartment syndrome. There is no leukocytosis or concerning anemia. No significant electrolyte abnormality, kidney failure. No worrisome coagulopathy. Ultrasound of the right upper extremity showed a superficial right hand foreign body at about 8 mm. Right hand film did not demonstrate any foreign body or fracture. I was able to remove the foreign body as noted in the procedure note above, no complications. The bleeding was controlled with pressure. I did use a blood pressure cuff on the right arm to decrease the bleeding during the foreign body removal. The patient received IV Unasyn. I discussed the case with the on-call orthopedist. The patient is being seen by orthopedics in this ER. His disposition is pending based on the orthopedic assessment. Consults Time Called: 1110 Consulting Physician: Dr. Diana, [facility] Returned Call: 1119 I discussed the patient's case with him. He requests that an X-ray be taken. He will come or send someone to the ED to evaluate the patient. Additional Consults: Time Called: 1329 Consulted Physician: Dr. Diana, [facility] Returned Call: 1400 Additional Comments: I discussed the patient's case with him. The patient will be discharged home. Impression Primary Impression: Foreign body of hand, right Additional Impression: Cellulitis of right hand Scribe Attestation The scribe's documentation has been prepared under my direction and personally reviewed by me in its entirety. I confirm that the note above accurately reflects all work, treatment, procedures, and medical decision making performed by me. Departure Information Dispostion Home / Self-Care Prescriptions Cephalexin Monohydrate (Keflex) 500 Mg Cap 500 MG PO QID, #28 CAP Prov: Star Parr M.D. 11/17/16 Referrals Callum Hampton M.D. (PCP) Alexander Diana M.D. Forms HOME CARE DOCUMENTATION FORM, IMPORTANT VISIT INFORMATION Patient Instructions My [facility] Additional Instructions keflex 4x per day for 10 days elevation rest the hand return for fever, worsening symptoms or if not improving see orthopedics next week for a recheck Problem Qualifiers
[2016-11-17 09:04] LABS: BASO % 0.2 %; BASO ABS # 0.01 K/uL (0-0.2); COMPLETE YES; EOS % 0.6 %; HEMATOCRIT 35.1 % (42-52); IG% 0.4 %; LYMPH % 42.9 %; LYMPH ABS # 2.06 K/uL (1.2-3.4); MEAN CELL VOLUME 95.6 fL (80-100); MEAN CORPUSCULAR HEMOGLOBIN 32.7 pg (25-34); MEAN CORPUSCULAR HGB CONC 34.2 g/dl (32-36); MEAN PLATELET VOLUME 10.2 fL (7.4-10.4); MONO % 15.2 %; NEUT % 40.7 %; PLATELET COUNT 118 K/uL (130-400); RED BLOOD COUNT 3.67 M/uL (4.7-6.1)
[2016-11-17 09:20] LABS: INR 1.2 (0.9-1.1); PARTIAL THROMBOPLASTIN RATIO 1.2; PROTHROMBIN TIME (PATIENT) 12.9 SECONDS (9.0-12.0)
[2016-11-17 09:23] LABS: BUN/CREATININE RATIO 26.4 (10-20); CREATININE 1.4 mg/dl (0.60-1.40); POTASSIUM 4.1 mmol/L (3.5-5.1)
--- NOTE | 2016-11-17 09:36 | DIAGNOSTIC IMAGING REPORT ---
Ultrasound right hand RIGHT EXTREMITY NONVASCULAR LIMITED CLINICAL HISTORY: right hand, posse feb Right foreign body. Trauma. TECHNIQUE: Ultrasound COMPARISON STUDY: None FINDINGS: Ultrasound and adjacent to the fifth metacarpal demonstrates a linear foreign body measuring 8 mm maximum linear dimension. This is immediately adjacent to what appears to be the entry point of the skin surface. IMPRESSION: 8 mm linear foreign body within the subcutaneous tissues adjacent to the entry point at the distal fifth metacarpal level Electronically signed by: Eber Tucker M.D. 11/17/2016 9:34 AM Dictated Date/Time: 11/17/2016 9:33 AM
[2016-11-17 09:38] VITALS: TEMP 36.6
[2016-11-17] MEDS ORDERED: XYLOCAINE 1%/SOD BICARB 20 ML VIAL INFIL ONE (09:45)
--- NOTE | 2016-11-17 12:12 | DIAGNOSTIC IMAGING REPORT ---
RIGHT HAND MIN 3 VIEWS ROUTINE CLINICAL HISTORY: feb hand Right trauma. Foreign body. COMPARISON: None. DISCUSSION: Moderate degenerative changes throughout. Mild soft tissue edematous change. No well-defined evidence for radiopaque foreign body. IMPRESSION: Soft tissue edema. Degenerative change. No well-defined radiopaque foreign body or acute bony abnormality Electronically signed by: Eber Tucker M.D. 11/17/2016 12:11 PM Dictated Date/Time: 11/17/2016 12:06 PM
--- NOTE | 2016-11-17 13:59 | Medical Consult ---
Consultation Date of Consultation: Nov 17, 2016. Attending Physician: Dr. Diana Reason for Consultation: Right hand injury History of Present Illness Michelet is an 86 year old male who presents to the ER s/p right hand injury . The patient was pounding-in a plastic object into the ground with a hammer. The plastic stake broke resulting in several pieces of plastic lodging in the volar aspect of his hand. He reports removing a small plastic object from the wound. The patient woke this morning with pain and swelling on the ulnar aspect of his right hand. Denies fevers. No numbness or tingling. No prior history of hand injury. While in the ER, the ER physician successfully removed a small fragment of plastic, which was identified on ultrasound as an 8mm object. I visualized the object and is consistent with imaging results. Past Medical/Surgical History Medical Problems: (1) Jaw pain Status: Acute (2) TIA (transient ischemic attack) Status: Acute Surgical History: (1) Pacemaker Family History No significant family history Social History Smoking Status: Former Smoker Smokeless Tobacco Use: No Alcohol Use: none Drug Use: none Marital Status: single Housing Status: lives alone Occupation Status: retired Allergies Coded Allergies: Antihistamines, Diphenhydramine-typ (Verified Adverse Reaction, Intermediate, headaches, 10/20/16) Home Medications Home Meds and Scripts Medications Dose Route/Sig Max Daily Dose Days Date Category Dose Instructions Nexium (Esomeprazole Magnesium) 20 Mg Cap 20 Mg PO BID 11/17/16 Reported Digox (Digoxin) 125 Mcg Tab 125 Mcg PO DAILY 10/20/16 Reported Folvite (Folic Acid) 1 Mg Tab 800 Mg PO DAILY 10/20/16 Reported Caltrate 600 (Calcium Carbonate) 1,500 Mg Tab 600 Mg PO DAILY 10/20/16 Reported Actos (Pioglitazone) 30 Mg Tab 15 Mg PO DAILY 90 10/20/16 Reported Glipizide Er (Glipizide) 5 Mg Tab 5 Mg PO DAILY 90 10/20/16 Reported takes with evening meal Zantac (Ranitidine Hcl) 300 Mg Tab 300 Mg PO UD 06/08/15 Reported AT 8PM EVERY EVENING Pradaxa (Dabigatran Etexilate Mesylate) 150 Mg Cap 150 Mg PO BID 10/05/13 Reported Nitrostat (Nitroglycerin) 0.4 Mg Tab 0.4 Mg UT PRN 10/05/13 Reported Singulair (Montelukast Sodium) 10 Mg Tab 10 Mg PO HS 10/05/13 Reported Glipizide Er (Glipizide) 5 Mg Tab 10 Mg PO QAM 10/05/13 Reported Coenzyme Q-10 (Coenzyme Q10 (Ubidecarenone)) 200 Mg Cap 200 Mg PO DAILY 10/05/13 Reported Multivitamin (Multivitamins) Tab 1 Tab PO DAILY 04/12/09 Reported Toprol-Xl (Metoprolol Succinate) 100 Mg Tabcr 100 Mg PO BID 04/12/09 Reported Lipitor (Atorvastatin Calcium) 10 Mg Tab 10 Mg PO HS 04/12/09 Reported Review of Systems Constitutional: No chills, No fatigue, No fever, No problem reported, No sweats , No weakness, No weight loss Respiratory: No cough, No dyspnea at rest, No dyspnea on exertion, No hemoptysis, No problem reported, No shortness of breath, No sputum, No wheezing Musculoskeletal: + swelling (reports some pain and swelling on the ulnar aspect of the right hand volar and dorsal aspect), No calf pain, No joint pain, No muscle pain, No problem reported Neurologic: No numbness/tingling, No weakness Hematologic / Lymphatic: + problem reported (patient anticoagulated due to pacemaker) Integumentary: + color change (reports some mild redness around injury site), + problem reported (reports a small opening on the volar aspect of his right hand, entry point of the foreign body) Physical Exam Date Time Temp Pulse Resp B/P Pulse Ox O2 Delivery O2 Flow Rate FiO2 11/17/16 11:35 60 18 154/62 95 Room Air 11/17/16 09:38 36.6 64 16 146/66 97 Room Air 11/17/16 08:13 36.9 68 18 136/58 91 Room Air General Appearance: WD/WN, no apparent distress Extremities/Musculoskelatal: normal capillary refill, normal range of motion, + swelling, + pertinent finding (no significant tendnerss while palpating, patient's flexor and extensor tendons are intact-tested at the MCP, PIP, and DIP joints) Neurologic/Psych: no motor/sensory deficits, alert, normal mood/affect, oriented x 3 Skin: normal color, warm/dry, no rash, + pertinent finding (small 2-3mm opening on the volar aspect of the right hand, ulnar side, no drainage, unable to express any type of purulent material) Laboratory Results Last 24 Hours Test 11/17/16 08:50 White Blood Count 4.80 K/uL Red Blood Count 3.67 M/uL Hemoglobin 12.0 g/dL Hematocrit 35.1 % Mean Corpuscular Volume 95.6 fL Mean Corpuscular Hemoglobin 32.7 pg Mean Corpuscular Hemoglobin Concent 34.2 g/dl Platelet Count 118 K/uL Mean Platelet Volume 10.2 fL Neutrophils (%) (Auto) 40.7 % Lymphocytes (%) (Auto) 42.9 % Monocytes (%) (Auto) 15.2 % Eosinophils (%) (Auto) 0.6 % Basophils (%) (Auto) 0.2 % Neutrophils # (Auto) 1.95 K/uL Lymphocytes # (Auto) 2.06 K/uL Monocytes # (Auto) 0.73 K/uL Eosinophils # (Auto) 0.03 K/uL Basophils # (Auto) 0.01 K/uL RDW Standard Deviation 55.4 fL RDW Coefficient of Variation 15.9 % Immature Granulocyte % (Auto) 0.4 % Immature Granulocyte # (Auto) 0.02 K/uL Prothrombin Time 12.9 SECONDS Prothromb Time International Ratio 1.2 Activated Partial Thromboplast Time 30.4 SECONDS Partial Thromboplastin Ratio 1.2 Sodium Level 141 mmol/L Potassium Level 4.1 mmol/L Chloride Level 107 mmol/L Carbon Dioxide Level 26 mmol/L Anion Gap 8.0 mmol/L Blood Urea Nitrogen 37 mg/dl Creatinine 1.40 mg/dl Est Creatinine Clear Calc Drug Dose 41.1 ml/min Estimated GFR () 52.0 Estimated GFR (Non- 44.9 BUN/Creatinine Ratio 26.4 Random Glucose 215 mg/dl Calcium Level 9.0 mg/dl Assessment & Plan Right hand injury PLAN: I discussed today's findings with Michelet. It appears all foreign bodies have been removed according to ultrasound images and visualization of foreign body excised today in the ER. The patient does have some mild swelling about the right hand but does not appear to be an advanced infection, nerve or blood vessel injury, or injury to tendons or bone. The patient reports feeling much better symptomatically versus his status this AM. I will discuss findings further with Dr. Diana from [facility].
[2016-11-17] MEDS ORDERED: CEPH500C PO (14:03)
[2016-11-17 14:21] VITALS: BP 137/66; PULSE 75; O2SAT 96
--- NOTE | 2016-11-17 15:42 | ORTHOPEDIC CONSULTATION ---
DATE OF CONSULTATION: 11/17/2016 DATE OF CONSULTATION: 11/17/2016. The patient is seen at the request of Dr. Parr. The patient seen in conjunction with Jarrod Williamson, physician's certified first assistant. For further details, refer to his dictation. He and I saw and evaluated together and I am in agreement with the plan. HISTORY OF PRESENT ILLNESS: An 86-year-old gentleman with right hand pain 1 day status post embedding fiberglass into his hand from a tent stake. He removed some of it. Dr. Parr ultrasounded the hand and removed the other sliver today. Overall feels better but had some redness, swelling and pain today. PAST MEDICAL HISTORY: Noted and reviewed. He is on blood thinners for Afib and is also a type 2 diabetic on oral hypoglycemic. PHYSICAL EXAMINATION: Exam of the right hand shows some mild swelling and faint erythema on the ulnar portion of the palm. There is a little bit of swelling into the right ring finger. Median, radial and ulnar motor and sensory functions are intact. There is a small puncture wound with laceration just proximal to the fifth MP joint. He has near full extension and composite flexion within a centimeter or 2 of the distal palmar crease. Passive range of motion, flexion and extension is unremarkable except for the ring finger which shows some discomfort at the PIP joint with passive extension. He does not have any evidence of abscess formation. His capillary refill and sensation are intact. Superficialis and profundus function intact. He has no fusiform swelling and he does not have tenderness to palpation along the flexure tendon sheath of any of his fingers. The puncture wound/surgical incision area are mildly tender. There is no swelling on the back of the hand. He has full passive movement of the IP joints in isolation. Radiographs of the hand shows some soft tissue swelling, no radiopaque foreign body, fracture or dislocation. IMPRESSION: Right hand puncture wound, possible early mild cellulitis. Johnson and findings discussed with patient. The foreign material has been removed. There is no evidence of bleeding. He may have minor infection developing. Rest, ice, elevate, limit activity Tylenol for pain. I spoke with Dr. Parr he will be started on Bactrim or Keflex over the weekend. If anything worsens with pain, fever, swelling, particularly of the fingers he is to come back to the Emergency Room or call my office over the weekend for further evaluation and treatment. I will see him on Sunday for reassessment. I think the pain could be due just to the trauma of having the embedded foreign body. He may have developed an early mild cellulitis. Flexor tenosynovitis or septic arthritis are in the differential, but neither are readily clinically apparent. Findings discussed with patient and with Dr. Parr.
== END 2016-11-17 14:25 | disposition home or self-care (01) ==
LOC: C.EDB 08:10
DX: S60.551A Superficial foreign body of right hand, initial encounter (principal); L03.113 Cellulitis of right upper limb; W45.8XXA Other foreign body or object entering through skin, initial encounter; Y92.89 Other specified places as the place of occurrence of the external cause; Y93.89 Activity, other specified; I48.91 Unspecified atrial fibrillation; I10 Essential (primary) hypertension; E11.9 Type 2 diabetes mellitus without complications; K21.9 Gastro-esophageal reflux disease without esophagitis; I51.9 Heart disease, unspecified; K44.9 Diaphragmatic hernia without obstruction or gangrene; Z95.0 Presence of cardiac pacemaker; N28.9 Disorder of kidney and ureter, unspecified; Z87.891 Personal history of nicotine dependence; Z79.899 Other long term (current) drug therapy

== ENCOUNTER 2016-12-22 08:25 | Emergency (ER) | payer OTHER ==
[~2016-12-22] VITALS: Ht 172.7 cm; Wt 86.2 kg
[~2016-12-22 08:25] MED LIST changes: +ATOR10TA82 PO; -ATOR10TA88 PO; -CEFD1CAP14 PO; +CEPH500C PO; +ESOM20CA PO; +METO100T44 PO; -METO1TAB69 PO; -PRLSR20 PO; -TOBRSUS33 OT
[2016-12-22 08:30] VITALS: TEMP 36.4; Ht 172.7 cm; Wt 86.2 kg
[2016-12-22 08:49] VITALS: O2SAT 98
[2016-12-22 09:13] LABS: HEMATOCRIT 34.5 % (42-52); MEAN CELL VOLUME 99.1 fL (80-100); MEAN CORPUSCULAR HEMOGLOBIN 33.3 pg (25-34); MEAN CORPUSCULAR HGB CONC 33.6 g/dl (32-36); MEAN PLATELET VOLUME 10.5 fL (7.4-10.4); PLATELET COUNT 111 K/uL (130-400); RED BLOOD COUNT 3.48 M/uL (4.7-6.1); WHITE BLOOD COUNT 3.58 K/uL (4.8-10.8)
[2016-12-22 09:20] LABS: BUN/CREATININE RATIO 23.4 (10-20); CALCIUM 8.6 mg/dl (8.5-10.1); CREATININE 1.3 mg/dl (0.60-1.40); POTASSIUM 4.3 mmol/L (3.5-5.1)
[2016-12-22 09:22] LABS: INR 1.1 (0.9-1.1)
[2016-12-22] MEDS ORDERED: FOLI800T PO (09:27)
[2016-12-22] MEDS ORDERED: TPRSR/100 PO (09:27)
[2016-12-22] MEDS ORDERED: ACT15 PO (09:27)
[2016-12-22] MEDS ORDERED: CALC600T36 PO (09:27)
[2016-12-22] MEDS ORDERED: [UNRECOGNIZED DRUG - OTHER] PO (09:27)
[2016-12-22] MEDS ORDERED: NXM/40 PO (09:27)
[2016-12-22] MEDS ORDERED: APIX1TAB3 PO (09:27)
--- NOTE | 2016-12-22 09:54 | DIAGNOSTIC IMAGING REPORT ---
RIGHT FEMUR 2 VIEWS ROUTINE CLINICAL HISTORY: right proximal thigh pain Right pain COMPARISON: None. DISCUSSION: The bones and joint spaces appear intact. There is no evidence of fracture, dislocation or bony disease. There is no evidence for soft tissue swelling. IMPRESSION: Moderate degenerative change. No acute process. Electronically signed by: Eber Tucker M.D. 12/22/2016 9:52 AM Dictated Date/Time: 12/22/2016 9:32 AM
--- NOTE | 2016-12-22 09:55 | DIAGNOSTIC IMAGING REPORT ---
RIGHT LOWER EXTREMITY VENOUS DOPPLER CLINICAL HISTORY: Right leg pain. COMPARISON STUDY: No previous studies for comparison. TECHNIQUE: Sonography of the deep venous system of the right lower extremity was performed. Compression and augmentation were evaluated. FINDINGS: The right common femoral, superficial femoral and popliteal veins were compressible. Augmentation was normal. Flow was shown within the deep calf vessels. IMPRESSION: No evidence of deep venous thrombus within the right lower extremity. Electronically signed by: Yuriy Dent M.D. 12/22/2016 9:53 AM Dictated Date/Time: 12/22/2016 9:53 AM
[2016-12-22 09:56] LABS: BASO % 0.3 %; BASO ABS # 0.01 K/uL (0-0.2); COMPLETE YES; EOS % 1.4 %; GIANT PLATELETS 1+; LYMPH ABS # 2.04 K/uL (1.2-3.4); MONO % 12.6 %; NEUT % 28.7 %
[2016-12-22 11:12] VITALS: BP 159/82; PULSE 56; O2SAT 97
--- NOTE | 2016-12-22 15:39 | EMERGENCY ROOM VISIT NOTE ---
History Report prepared by Destiny: Yimi Cintron Under the Supervision of: Dr. Mustapha Ceja M.D. First contact with patient: 08:38 Chief Complaint: LEG PAIN,LEG INJURY Stated Complaint: PAIN IN RIGHT LEG, NUMBNESS IN RIGH HAND History of Present Illness The patient is a 86 year old male who presents to the Emergency Room with complaints of constant severe right quadriceps pain starting around 2200 last night. He currently rates his discomfort as a 5-6/10 in severity. The patient states that the pain is radiating into his groin, and he is having right hand numbness and weakness. He states that he had right hand numbness over the hypothenar eminence. The patient states that he has spinal stenosis, and he states that this pain is similar, though much more severe, and it does not usually go into his groin. The patient states that he applied heat to it, and it helped, and he woke up at 0200 and applied heat as well. He states that he has not been driving very much recently, though the numbness is similar to when he had a similar episode when he was driving a lot in December of 2014. The patient denies any left arm or leg issues. 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 The patient denies any history of blood clots or recent falls. Pt denies LOC, headache, fevers, chills, diaphoresis, visual changes, neck pain, chest pain, breathing difficulties, nausea, vomiting, abdominal pain, back pain, melena, hematochezia , urinary symptoms, lymphadenopathy, rash, or other complaints. Source of History: patient Onset: 2200 last night Position: leg (right) Symptom Intensity: 5-6/10 Timing: constant Modifying Factors (Relieving): heat Associated Symptoms: + numbness, + weakness Review of Systems See HPI for pertinent positives and negatives. A total of ten systems were reviewed and were otherwise negative. Past Medical & Surgical Medical Problems: (1) Atrial fibrillation (2) Benign hypertension (3) coronary bypass surgery (4) Diabetes mellitus (5) GERD (gastroesophageal reflux disease) (6) Heart disease (7) Hiatal hernia (8) Implantation of cardiac pacemaker (9) Kidney disease (10) Neck pain on right side (11) Pacemaker (12) Weakness Family History No significant family history Social History Smoking Status: Former Smoker Alcohol Use: occasionally Drug Use: none Marital Status: single Housing Status: lives alone Occupation Status: retired Current/Historical Medications Scheduled Apixaban (Eliquis), 5 MG PO AMPM Atorvastatin (Lipitor), 10 MG PO HS Calcium W/ Vitamin D (Calcium), 1 TAB PO DAILY Coenzyme Q10 (Ubidecarenone) (Coenzyme Q-10), 200 MG PO DAILY Digoxin (Digox), 125 MCG PO HS Esomeprazole Magnesium (Nexium), 40 MG PO DAILY Folic Acid (Folic Acid), 800 MCG PO DAILY Glipizide (Glipizide Er), 10 MG PO QAM Glipizide (Glipizide Er), 5 MG PO QPM Metoprolol Succinate (Metoprolol Succinate ER), 1 TAB PO BID Montelukast Sodium (Singulair), 10 MG PO QPM Multivitamin (Multivitamin), 1 TAB PO DAILY Nitroglycerin (Nitrostat), 0.4 MG UT PRN Pioglitazone (Actos), 15 MG PO DAILY Ranitidine Hcl (Zantac), 300 MG PO UD [Neurvasia], 1 DOSE PO DAILY Allergies Coded Allergies: Antihistamines, Diphenhydramine-typ (Verified Adverse Reaction, Intermediate, headaches, 12/22/16) Physical Exam Vital Signs Date Time Temp Pulse Resp B/P Pulse Ox O2 Delivery O2 Flow Rate FiO2 12/22/16 11:12 56 16 159/82 97 12/22/16 10:26 60 16 150/60 94 Room Air 12/22/16 08:49 98 Room Air 12/22/16 08:48 62 12/22/16 08:30 36.4 68 20 112/59 96 Room Air Physical Exam GENERAL: Awake, alert, well-appearing, in no distress HENT: Normocephalic, atraumatic. Oropharynx unremarkable. EYES: Normal conjunctiva. Sclera non-icteric. NECK: Supple. No nuchal rigidity. FROM. No JVD. RESPIRATORY: Clear to auscultation. CARDIAC: Regular rate, normal rhythm. Extremities warm and well perfused. Pulses equal. ABDOMEN: Soft, non-distended. No tenderness to palpation. No rebound or guarding. No masses. RECTAL: Deferred. MUSCULOSKELETAL: Chest examination reveals no tenderness. The back is symmetrical on inspection without obvious abnormality. There is no CVA tenderness to palpation. No joint edema. LOWER EXTREMITIES: 2+ left and 1+ right lower extremity edema, which he states is chronic. Tenderness about the right proximal thigh. No masses. No skin changes. No obvious inguinal or femoral hernia. Good distal pulses. Right lower extremity was well perfused. NEURO: Decreased sensation over the hypothenar eminence and the fifth digit on the right hand. No sensory or motor deficits noted. SKIN: No rash or jaundice noted. Medical Decision & Procedures ER Provider Diagnostic Interpretation: X ray results as stated below per my interpretation and radiologist interpretation. Other radiology results as stated below per my review and radiologist interpretation RIGHT LOWER EXTREMITY VENOUS DOPPLER CLINICAL HISTORY: Right leg pain. COMPARISON STUDY: No previous studies for comparison. TECHNIQUE: Sonography of the deep venous system of the right lower extremity was performed. Compression and augmentation were evaluated. FINDINGS: The right common femoral, superficial femoral and popliteal veins were compressible. Augmentation was normal. Flow was shown within the deep calf vessels. IMPRESSION: No evidence of deep venous thrombus within the right lower extremity. Electronically signed by: Yuriy Dent M.D. 12/22/2016 9:53 AM Dictated Date/Time: 12/22/2016 9:53 AM RIGHT FEMUR 2 VIEWS ROUTINE CLINICAL HISTORY: right proximal thigh pain Right pain COMPARISON: None. DISCUSSION: The bones and joint spaces appear intact. There is no evidence of fracture, dislocation or bony disease. There is no evidence for soft tissue swelling. IMPRESSION: Moderate degenerative change. No acute process. Electronically signed by: Eber Tucker M.D. 12/22/2016 9:52 AM Dictated Date/Time: 12/22/2016 9:32 AM Laboratory Results 12/22/16 08:45 Red Blood Count 3.48, Mean Corpuscular Volume 99.1, Mean Corpuscular Hemoglobin 33.3, Mean Corpuscular Hemoglobin Concent 33.6, Mean Platelet Volume 10.5, Neutrophils (%) (Auto) 28.7, Lymphocytes (%) (Auto) 57.0, Monocytes (%) (Auto) 12.6, Eosinophils (%) (Auto) 1.4, Basophils (%) (Auto) 0.3, Neutrophils # (Auto ) 1.03, Lymphocytes # (Auto) 2.04, Monocytes # (Auto) 0.45, Eosinophils # (Auto ) 0.05, Basophils # (Auto) 0.01 12/22/16 08:45 Test 12/22/16 08:45 White Blood Count 3.58 K/uL (4.8-10.8) Red Blood Count 3.48 M/uL (4.7-6.1) Hemoglobin 11.6 g/dL (14.0-18.0) Hematocrit 34.5 % (42-52) Mean Corpuscular Volume 99.1 fL (80-100) Mean Corpuscular Hemoglobin 33.3 pg (25-34) Mean Corpuscular Hemoglobin Concent 33.6 g/dl (32-36) Platelet Count 111 K/uL (130-400) Mean Platelet Volume 10.5 fL (7.4-10.4) Neutrophils (%) (Auto) 28.7 % Lymphocytes (%) (Auto) 57.0 % Monocytes (%) (Auto) 12.6 % Eosinophils (%) (Auto) 1.4 % Basophils (%) (Auto) 0.3 % Neutrophils # (Auto) 1.03 K/uL (1.4-6.5) Lymphocytes # (Auto) 2.04 K/uL (1.2-3.4) Monocytes # (Auto) 0.45 K/uL (0.11-0.59) Eosinophils # (Auto) 0.05 K/uL (0-0.5) Basophils # (Auto) 0.01 K/uL (0-0.2) RDW Standard Deviation 61.0 fL (36.4-46.3) RDW Coefficient of Variation 17.0 % (11.5-14.5) Immature Granulocyte % (Auto) 0.0 % Immature Granulocyte # (Auto) 0.00 K/uL (0.00-0.02) Giant Platelets 1+ Prothrombin Time 12.0 SECONDS (9.0-12.0) Prothromb Time International Ratio 1.1 (0.9-1.1) Activated Partial Thromboplast Time 26.1 SECONDS (21.0-31.0) Partial Thromboplastin Ratio 1.0 Anion Gap 4.0 mmol/L (3-11) Est Creatinine Clear Calc Drug Dose 42.8 ml/min Estimated GFR () 56.9 Estimated GFR (Non- 49.1 BUN/Creatinine Ratio 23.4 (10-20) Calcium Level 8.6 mg/dl (8.5-10.1) Laboratory results reviewed by me ED Course 0838: The patient was evaluated in room B11. A complete history and physical exam was performed 1050: I reevaluated the patient. Discussed results and discharge instructions: He verbalized understanding and agreement. The patient is ready for discharge. Medical Decision Triage Nursing notes reviewed. The patient's presentation and history were concerning for leg pain and hand numbness. He has a history of sciatica and states that this is similar but more severe. On record review the patient had a history of a right ulnar neuropathy. The patient was questioned about this and he stated that this felt similar although less severe. He is unsure if he had rested his arm in unusual position or head pressure on the ulnar nerve at the elbow. Etiologies such as muscle strain, sciatica, DVT, joint effusion, infection, trauma, musculoskeletal, sciatica, neuropathy, intracerebral event, neuropraxia , as well as others were entertained. The patient declined any analgesia. He was feeling relatively well. I could only find some subjective numbness in the hypothenar eminence. Leg examination was unremarkable. The patient had good strength. He underwent ultrasound imaging as well as x-ray. There is no bony pathology noted. No DVT present. On reassessment and likely pain was much better and his hand issues resolved. I discussed conservative management with the patient and he feels comfortable. He feels like this was his sciatica but because of the level pain wanted to be sure. He has no back pain at this time. Additional imaging was felt to be unnecessary. If he worsens in any way he will be back for reevaluation. Blood work was unremarkable. By the evaluation outlined above other emergent etiologies such as those listed in the differential, as well as others, were deemed relatively unlikely. The patient was informed about the findings as listed above. All questions were answered and he was pleased with the treatment. Return instructions were outlined and the patient was discharged in stable condition. The patient was referred to his PCP for follow-up next week for a recheck of the current condition. The chart was completed utilizing [employer] voice recognition software. Grammatical errors, random word insertions, pronoun errors, and incomplete sentences are an occasional consequence of this system due to software limitations, ambient noise, and hardware issues. Any formal questions or concerns about the content, text, or information contained within the body of this dictation should be directly addressed to the physician for clarification. Impression Primary Impression: Leg pain, right Additional Impression: Numbness of right hand Scribe Attestation The scribe's documentation has been prepared under my direction and personally reviewed by me in its entirety. I confirm that the note above accurately reflects all work, treatment, procedures, and medical decision making performed by me. Departure Information Dispostion Home / Self-Care Referrals Callum Hampton M.D. (PCP) Forms HOME CARE DOCUMENTATION FORM, IMPORTANT VISIT INFORMATION Patient Instructions My [facility] Additional Instructions Acetaminophen(Tylenol) may be used for fever or pain. Use 1000mg every six hours as needed. Avoid using more than 4000mg in a 24 hour period. Warm compresses for 20 minutes at a time four times daily for 2-3 days. Rest and elevate your injury. Return to the ER immediately for any numbness, tingling, severe pain, extreme swelling in the extremity or as needed. Follow-up with your primary care physician next week for a recheck of your current condition. Problem Qualifiers
== END 2016-12-22 11:13 | disposition home or self-care (01) ==
LOC: C.EDB 08:27
DX: M79.604 Pain in right leg (principal); R20.2 Paresthesia of skin; I48.91 Unspecified atrial fibrillation; E11.9 Type 2 diabetes mellitus without complications; K21.9 Gastro-esophageal reflux disease without esophagitis; I12.9 Hypertensive chronic kidney disease with stage 1 through stage 4 chronic kidney disease, or unspecified chronic kidney disease; N18.9 Chronic kidney disease, unspecified; I51.9 Heart disease, unspecified; Z95.0 Presence of cardiac pacemaker; Z79.899 Other long term (current) drug therapy; Z87.891 Personal history of nicotine dependence; Z88.8 Allergy status to other drugs, medicaments and biological substances

== ENCOUNTER → 2017-01-29 | Outpatient (CLI) | payer OTHER ==
[~2017-01-29] MED LIST changes: +ACT15 PO; -ACT30 PO; +APIX1TAB3 PO; +CALC600T36 PO; -CALCTAB5 PO; -CEPH500C PO; -DABI150C PO; -ESOM20CA PO; -FOLI1TAB7 PO; +FOLI800T PO; -METO100T44 PO; +NXM/40 PO; +TPRSR/100 PO; +[UNRECOGNIZED DRUG - OTHER] PO
[2017-01-29 17:37] LABS: HEMATOCRIT 32.7 % (42-52); MEAN CELL VOLUME 99.7 fL (80-100); MEAN CORPUSCULAR HEMOGLOBIN 34.1 pg (25-34); MEAN CORPUSCULAR HGB CONC 34.3 g/dl (32-36); MEAN PLATELET VOLUME 10.4 fL (7.4-10.4); PLATELET COUNT 124 K/uL (130-400); RED BLOOD COUNT 3.28 M/uL (4.7-6.1); WHITE BLOOD COUNT 4.66 K/uL (4.8-10.8)
[2017-01-29 18:29] LABS: ANISOCYTOSIS PRESENT; COMPLETE YES; EOSINOPHIL % 0.9 %; LARGE PLATELETS 1+; LYMPH ABS # 1.71 K/uL (1.2-3.4); LYMPHOCYTE % 36.7 %; NEUTROPHILS % 35.8 %; VARIANT LYM ABS # 0.47 K/uL; VARIANT LYMPHOCYTE % 10.1 %
--- NOTE | 2017-02-06 11:42 | CODING QUERY MEDICAL NECESSITY ---
CQSUPPORTING DIAGNOSIS NEEDED A supporting diagnosis is required for the test/procedure performed on this patient in order for us to be reimbursed by the patient's insurance. Please provide a supporting diagnosis for the following test/procedure listed below next to the test name along with your signature. *If there is no additional diagnosis for this patient that would support the following test/procedure please document that below next to the test/procedure. Test(s)/Procedure(s) that require a supporting diagnosis: DOS 01/29/17 VITAMIN B12 SERUM IRON STUDY FOLIC ACID Provider Signature: Date: Thank you Julissa Torres Health Information Management Once completed, please kindly fax back to [phone] For questions please call [phone]
== END | disposition home or self-care (01) ==
LOC: C.LAB1850 16:39
PROVIDERS: ATTEND Internal Medicine Hematology & Oncology
DX: D61.818 Other pancytopenia (principal)

== ENCOUNTER → 2017-04-13 | Outpatient (CLI) | payer OTHER ==
[~2017-04-13] MED LIST changes: -ATOR10TA82 PO; +ATOR10TA88 PO
[2017-04-13 16:06] LABS: HEMATOCRIT 30.9 % (42-52); MEAN CORPUSCULAR HEMOGLOBIN 33.7 pg (25-34); MEAN CORPUSCULAR HGB CONC 33.3 g/dl (32-36); MEAN PLATELET VOLUME 10.6 fL (7.4-10.4); PLATELET COUNT 128 K/uL (130-400); RED BLOOD COUNT 3.06 M/uL (4.7-6.1); WHITE BLOOD COUNT 5.15 K/uL (4.8-10.8)
[2017-04-13 17:43] LABS: ANISOCYTOSIS PRESENT; BASO % 0.2 %; BASO ABS # 0.01 K/uL (0-0.2); COMPLETE YES; EOS % 0.4 %; IG% 0.2 %; LYMPH % 71.1 %; LYMPH ABS # 3.66 K/uL (1.2-3.4); MONO % 11.7 %; NEUT % 16.4 %
[2017-04-14 08:11] LABS: ESTIMATED AVERAGE GLUCOSE 128 mg/dl; HA1C FLAG Normal (Normal)
== END | disposition home or self-care (01) ==
LOC: C.LAB1850 14:26
PROVIDERS: ATTEND Internal Medicine
DX: E11.9 Type 2 diabetes mellitus without complications (principal)

== ENCOUNTER → 2017-04-25 | Outpatient (CLI) | payer OTHER ==
--- NOTE | 2017-04-25 10:46 | DIAGNOSTIC IMAGING REPORT ---
L-SPINE MIN 4 VIEWS ROUTINE CLINICAL HISTORY: 87 years-old Male presenting with M54.9 Back [id number]. TECHNIQUE: Frontal, bilateral oblique, and lateral views of the lumbar spine as well as coned in lateral view of the lumbosacral junction were obtained. COMPARISON: CT of the abdomen from 2013. FINDINGS: Dextroscoliotic curvature of the lumbar spine centered at L3-4. 6 mm of retrolisthesis of L3 on L4, likely degenerative in etiology. No evidence of a pars defect. Otherwise normal lumbar lordosis. Vertebral body heights maintained. Intervertebral disc height loss at L3-4. Multilevel degenerative changes with prominent anterior osteophytes. No gross evidence of osseous neural foraminal narrowing. Atherosclerosis. Nonobstructive bowel gas pattern. IMPRESSION: Scoliosis and multilevel degenerative changes with 6 mm of retrolisthesis of L3 on L4, which demonstrates a greatest degree of degenerative change. Electronically signed by: Alexander James M.D. 04/25/2017 10:45 AM Dictated Date/Time: 04/25/2017 10:42 AM
== END | disposition home or self-care (01) ==
LOC: C.RAD1850 10:12
PROVIDERS: ATTEND Physician Assistant
DX: M54.9 Dorsalgia, unspecified (principal); M41.9 Scoliosis, unspecified

== ENCOUNTER → 2017-06-05 | Outpatient (CLI) | payer OTHER ==
[2017-06-05 16:30] LABS: HEMATOCRIT 30.8 % (42-52); MEAN CORPUSCULAR HEMOGLOBIN 33.8 pg (25-34); MEAN CORPUSCULAR HGB CONC 33.4 g/dl (32-36); MEAN PLATELET VOLUME 10.9 fL (7.4-10.4); PLATELET COUNT 126 K/uL (130-400); RED BLOOD COUNT 3.05 M/uL (4.7-6.1); WHITE BLOOD COUNT 6.59 K/uL (4.8-10.8)
[2017-06-05 18:09] LABS: BASO % 0.3 %; BASO ABS # 0.02 K/uL (0-0.2); COMPLETE YES; EOS % 0.3 %; IG% 0.2 %; LYMPH ABS # 5.14 K/uL (1.2-3.4); MONO % 10.8 %; NEUT % 10.4 %
== END | disposition home or self-care (01) ==
LOC: C.LAB1850 14:53
PROVIDERS: ATTEND Internal Medicine
DX: R29.898 Other symptoms and signs involving the musculoskeletal system (principal); E11.9 Type 2 diabetes mellitus without complications; E11.21 Type 2 diabetes mellitus with diabetic nephropathy; C61 Malignant neoplasm of prostate

== ENCOUNTER → 2017-07-24 | Outpatient (CLI) | payer OTHER ==
[~2017-07-24] MED LIST changes: +ATOR10TA82 PO; -ATOR10TA88 PO
== END | disposition home or self-care (01) ==
LOC: C.LAB1850 14:39
PROVIDERS: ATTEND Nurse Practitioner Adult Health
DX: N40.0 Benign prostatic hyperplasia without lower urinary tract symptoms (principal)

== ENCOUNTER → 2017-08-09 | Outpatient (CLI) | payer OTHER ==
[2017-08-09 09:53] LABS: ALT/SGPT 32 U/L (12-78); BLOOD UREA NITROGEN 32 mg/dl (7-18); BUN/CREATININE RATIO 23.5 (10-20); CALCIUM 8.4 mg/dl (8.5-10.1); CARBON DIOXIDE 28 mmol/L (21-32); CHLORIDE 107 mmol/L (98-107); CHOLESTEROL 128 mg/dl (0-200); CREATININE 1.34 mg/dl (0.60-1.40); GLUCOSE 103 mg/dl (70-99); POTASSIUM 4.2 mmol/L (3.5-5.1); SODIUM 141 mmol/L (136-145)
[2017-08-09 09:56] LABS: HEMATOCRIT 28.5 % (42-52); MEAN CELL VOLUME 104.4 fL (80-100); MEAN CORPUSCULAR HEMOGLOBIN 33.7 pg (25-34); MEAN CORPUSCULAR HGB CONC 32.3 g/dl (32-36); MEAN PLATELET VOLUME 11.9 fL (7.4-10.4); PLATELET COUNT 122 K/uL (130-400); RED BLOOD COUNT 2.73 M/uL (4.7-6.1); WHITE BLOOD COUNT 7.17 K/uL (4.8-10.8)
[2017-08-09 09:58] LABS: AST/SGOT 29 U/L (15-37); CHOLESTEROL/HDL RATIO 4.7; HDL CHOLESTEROL 27 mg/dl; LDL CHOLESTEROL CALCULATED 45 mg/dl; TRIGLYCERIDES 279 mg/dl (0-150); VERY LOW DENSITY LIPOPROT CALC 56 mg/dl
[2017-08-09 10:02] LABS: ESTIMATED AVERAGE GLUCOSE 97 mg/dl; HA1C FLAG Normal (Normal)
[2017-08-09 10:59] LABS: BASO % 0.3 %; BASO ABS # 0.02 K/uL (0-0.2); COMPLETE YES; EOS % 0.1 %; IG% 0.4 %; LYMPH % 75.3 %; MONO % 11.2 %; NEUT % 12.7 %
[2017-08-09 11:00] LABS: ANISOCYTOSIS PRESENT; SMUDGE CELLS PRESENT; SPHEROCYTE 1+
== END | disposition home or self-care (01) ==
LOC: C.LAB1850 07:13
PROVIDERS: ATTEND Internal Medicine
DX: E78.5 Hyperlipidemia, unspecified (principal)

== ENCOUNTER 2017-08-28 21:22 | Inpatient (IN) | payer OTHER ==
[~2017-08-28] VITALS: Ht 175.3 cm; Wt 89.9 kg
--- NOTE | 2017-08-28 22:18 | DIAGNOSTIC IMAGING REPORT ---
CHEST ONE VIEW PORTABLE HISTORY: 87 years-old Male SOB acute shortness of breath COMPARISON: Chest radiograph 10/20/2016 TECHNIQUE: Portable upright AP view the chest FINDINGS: Cardiac silhouette is mildly enlarged. Moderate sized hiatal hernia redemonstrated. Prior median sternotomy with unchanged left pectoral pacer. Atherosclerosis of the aorta. No pneumothorax, pleural effusion or focal airspace consolidation. Linear subsegmental left basilar opacities redemonstrated. The bones of the chest are grossly intact. Remote appearing left-sided rib fractures. IMPRESSION: 1. Unchanged linear subsegmental left basilar opacities suggest atelectasis or scarring. 2. Moderate hiatal hernia. The above report was generated using voice recognition software. It may contain grammatical, syntax or spelling errors. Electronically signed by: Daniel Herrera M.D. 08/28/2017 10:16 PM Dictated Date/Time: 08/28/2017 10:15 PM
[2017-08-28 22:20] LABS: INR 1.1 (0.9-1.1); PTT PATIENT 22.4 SECONDS (21.0-31.0)
[2017-08-28 22:28] LABS: ALBUMIN 2.9 gm/dl (3.4-5.0); ALT/SGPT 32 U/L (12-78); BLOOD UREA NITROGEN 37 mg/dl (7-18); CALCIUM 7.9 mg/dl (8.5-10.1); CARBON DIOXIDE 22 mmol/L (21-32); CREATININE 1.53 mg/dl (0.60-1.40); GLUCOSE 131 mg/dl (70-99); SODIUM 141 mmol/L (136-145)
[2017-08-28] MEDS ORDERED: CYAN100T PO (22:31)
[2017-08-28] MEDS ORDERED: MULT-506 PO (22:31)
[2017-08-28 22:33] LABS: ALKALINE PHOSPHATASE 72 U/L (45-117); AST/SGOT 30 U/L (15-37); CKMB 0.6 ng/ml (0.5-3.6)
[2017-08-28 23:19] LABS: HEMATOCRIT 21.3 % (42-52); HEMOGLOBIN 7.1 g/dL (14.0-18.0); MEAN CELL VOLUME 104.4 fL (80-100); MEAN CORPUSCULAR HEMOGLOBIN 34.8 pg (25-34); MEAN CORPUSCULAR HGB CONC 33.3 g/dl (32-36); MEAN PLATELET VOLUME 11.3 fL (7.4-10.4); NUCLEATED RED BLOOD CELL ABS 0.04 K/uL (0-0); PLATELET COUNT 123 K/uL (130-400); RED CELL DISTRIBUTION WIDTH CV 22.6 % (11.5-14.5); RED CELL DISTRIBUTION WIDTH SD 82.7 fL (36.4-46.3); WHITE BLOOD COUNT 7.49 K/uL (4.8-10.8)
[2017-08-28 23:30] LABS: BASO % 0.3 %; BASO ABS # 0.02 K/uL (0-0.2); EOS % 0.3 %; EOS ABS # 0.02 K/uL (0-0.5); IG# 0.02 K/uL (0.00-0.02); LYMPH % 81.2 %; LYMPH ABS # 6.08 K/uL (1.2-3.4); MONO % 8.4 %; MONO ABS # 0.63 K/uL (0.11-0.59); NEUT % 9.5 %; NEUT ABS # 0.72 K/uL (1.4-6.5)
[2017-08-29] VITALS (19 sets, daily range): BP systolic 96–185; BP diastolic 41–73; PULSE 55–66; TEMP 36.3–37.2; O2SAT 92–99; Ht 175.3 cm; Wt 89.9 kg
--- NOTE | 2017-08-29 00:31 | EMERGENCY ROOM VISIT NOTE ---
History Report prepared by Destiny: Dian Joyner Under the Supervision of: Dr. Deanna Mosher M.D. First contact with patient: 21:29 Chief Complaint: SHORTNESS OF BREATH Stated Complaint: PULSE OX IS LOW History of Present Illness The patient is an 87 year old male who presents to the Emergency Room with complaints of worsening SOB starting 3 days ago. The patient has been feeling constantly SOB. He does feel better when he is at rest. This evening, his SOB worsened. He checked his pulse ox and found that it was in the 80s. He had difficulty getting his pulse ox into the 90s. He was able to drive himself to the ED. He currently feels better on oxygen. He has oxygen ordered for home use , but it will not be available until tomorrow. He has had intermittent sharp chest pain. The chest pain feels more like reflux and less like his previous MT. It occurs when he stands after sitting or lying for 2-3 hours. The pain resolves in 30-40 seconds after taking antacids. The pain does not go into his back. He has been having this chest pain for a while. He does not have chest pain with deep breaths. He denies any fever, chills, cough, or increased leg swelling. He has a history of CABG and prostate cancer. 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 He was a smoker in the distant past. Source of History: patient Onset: 3 days ago Position: other (global) Quality: other (SOB) Timing: constant, worsening Modifying Factors (Relieving): rest Associated Symptoms: + chest pain, No fevers, No chills, No cough Note: Pt denies increased leg swelling. Review of Systems See HPI for pertinent positives & negatives. A total of 10 systems reviewed and were otherwise negative. Past Medical & Surgical Medical Problems: (1) Atrial fibrillation (2) Benign hypertension (3) coronary bypass surgery (4) Diabetes mellitus (5) GERD (gastroesophageal reflux disease) (6) Heart disease (7) Hiatal hernia (8) Implantation of cardiac pacemaker (9) Kidney disease (10) Neck pain on right side (11) Pacemaker (12) Weakness Family History No significant family history Social History Smoking Status: Never Smoker Alcohol Use: occasionally Drug Use: none Marital Status: single Housing Status: lives alone Occupation Status: retired Current/Historical Medications Scheduled Apixaban (Eliquis), 5 MG PO AMPM Calcium W/ Vitamin D (Calcium), 1 TAB PO DAILY Coenzyme Q10 (Ubidecarenone) (Coenzyme Q-10), 200 MG PO DAILY Cyanocobalamin (Vitamin B-12), 1 TAB PO DAILY Digoxin (Digox), 125 MCG PO DAILY Esomeprazole Magnesium (Nexium), 40 MG PO DAILY Folic Acid (Folic Acid), 800 MCG PO DAILY Glipizide (Glipizide Er), 10 MG PO QAM Glipizide (Glipizide Er), 5 MG PO QPM Metoprolol Succinate (Metoprolol Succinate ER), 100 MG PO BID Montelukast Sodium (Singulair), 10 MG PO QPM Multivitamin (Multivitamin), 1 TAB PO DAILY Nitroglycerin (Nitrostat), 0.4 MG UT PRN Pioglitazone (Actos), 15 MG PO DAILY Ranitidine Hcl (Zantac), 300 MG PO UD [Neurvasia], 1 DOSE PO DAILY Allergies Coded Allergies: Antihistamines, Diphenhydramine-typ (Verified Adverse Reaction, Intermediate, headaches, 08/28/17) Physical Exam Vital Signs Date Time Temp Pulse Resp B/P (MAP) Pulse Ox O2 Delivery O2 Flow Rate FiO2 08/29/17 01:11 71 08/29/17 00:45 179/72 08/29/17 00:30 72 23 99 08/29/17 00:00 71 17 95 08/28/17 23:30 72 17 93 08/28/17 23:12 87 Room Air 08/28/17 23:00 65 19 95 08/28/17 21:48 97 Room Air 08/28/17 21:47 96 Room Air 08/28/17 21:45 60 08/28/17 21:24 37.1 82 22 144/61 92 Room Air Physical Exam Vital signs reviewed. General: Chronically ill-appearing male, pale, in no significant distress, on nasal cannula oxygen. HEENT: No scleral icterus, PERRLA, neck supple. Atraumatic. Cardiovascular: Regular rate and rhythm, no extra sounds. Pulmonary: Clear to auscultation bilaterally, normal work of breathing. Abdomen: Soft, nontender, nondistended, positive bowel sounds. Musculoskeletal: Atraumatic, no peripheral edema. Neurologic: Patient awake alert and oriented x 3, full strength in all 4 extremities. Cranial nerves 2 through 12 grossly intact. Skin: Warm, dry, no rash Medical Decision & Procedures ER Provider Diagnostic Interpretation: X-ray results as stated below per interpretation by me and the radiologist: CHEST ONE VIEW PORTABLE HISTORY: 87 years-old Male SOB acute shortness of breath COMPARISON: Chest radiograph 10/20/2016 TECHNIQUE: Portable upright AP view the chest FINDINGS: Cardiac silhouette is mildly enlarged. Moderate sized hiatal hernia redemonstrated. Prior median sternotomy with unchanged left pectoral pacer. Atherosclerosis of the aorta. No pneumothorax, pleural effusion or focal airspace consolidation. Linear subsegmental left basilar opacities redemonstrated. The bones of the chest are grossly intact. Remote appearing left-sided rib fractures. IMPRESSION: 1. Unchanged linear subsegmental left basilar opacities suggest atelectasis or scarring. 2. Moderate hiatal hernia. The above report was generated using voice recognition software. It may contain grammatical, syntax or spelling errors. Electronically signed by: Daniel Herrera M.D. 08/28/2017 10:16 PM Dictated Date/Time: 08/28/2017 10:15 PM Laboratory Results 08/28/17 21:54 Red Blood Count 2.04, Mean Corpuscular Volume 104.4, Mean Corpuscular Hemoglobin 34.8, Mean Corpuscular Hemoglobin Concent 33.3, Mean Platelet Volume 11.3, Neutrophils (%) (Auto) 9.5, Lymphocytes (%) (Auto) 81.2, Monocytes (%) ( Auto) 8.4, Eosinophils (%) (Auto) 0.3, Basophils (%) (Auto) 0.3, Neutrophils # ( Auto) 0.72, Lymphocytes # (Auto) 6.08, Monocytes # (Auto) 0.63, Eosinophils # ( Auto) 0.02, Basophils # (Auto) 0.02 08/28/17 21:54 Test 08/28/17 21:54 08/28/17 22:02 08/29/17 00:45 White Blood Count 7.49 K/uL (4.8-10.8) Red Blood Count 2.04 M/uL (4.7-6.1) Hemoglobin 7.1 g/dL (14.0-18.0) Hematocrit 21.3 % (42-52) Mean Corpuscular Volume 104.4 fL (80-100) Mean Corpuscular Hemoglobin 34.8 pg (25-34) Mean Corpuscular Hemoglobin Concent 33.3 g/dl (32-36) Platelet Count 123 K/uL (130-400) Mean Platelet Volume 11.3 fL (7.4-10.4) Neutrophils (%) (Auto) 9.5 % Lymphocytes (%) (Auto) 81.2 % Monocytes (%) (Auto) 8.4 % Eosinophils (%) (Auto) 0.3 % Basophils (%) (Auto) 0.3 % Neutrophils # (Auto) 0.72 K/uL (1.4-6.5) Lymphocytes # (Auto) 6.08 K/uL (1.2-3.4) Monocytes # (Auto) 0.63 K/uL (0.11-0.59) Eosinophils # (Auto) 0.02 K/uL (0-0.5) Basophils # (Auto) 0.02 K/uL (0-0.2) RDW Standard Deviation 82.7 fL (36.4-46.3) RDW Coefficient of Variation 22.6 % (11.5-14.5) Immature Granulocyte % (Auto) 0.3 % Immature Granulocyte # (Auto) 0.02 K/uL (0.00-0.02) Nucleated RBC Absolute Count (auto) 0.04 K/uL (0-0) Nucleated Red Blood Cells % 0.5 % Polychromasia 1+ Anisocytosis PRESENT Prothrombin Time 11.5 SECONDS (9.0-12.0) Prothromb Time International Ratio 1.1 (0.9-1.1) Activated Partial Thromboplast Time 22.4 SECONDS (21.0-31.0) Partial Thromboplastin Ratio 0.9 Anion Gap 9.0 mmol/L (3-11) Estimated GFR () 46.4 Estimated GFR (Non- 40.0 BUN/Creatinine Ratio 24.2 (10-20) Calcium Level 7.9 mg/dl (8.5-10.1) Magnesium Level 2.0 mg/dl (1.8-2.4) Total Bilirubin 0.6 mg/dl (0.2-1) Direct Bilirubin 0.2 mg/dl (0-0.2) Aspartate Amino Transf (AST/SGOT) 30 U/L (15-37) Alanine Aminotransferase (ALT/SGPT) 32 U/L (12-78) Alkaline Phosphatase 72 U/L (45-117) Total Creatine Kinase 40 U/L (39-308) Creatine Kinase MB 0.6 ng/ml (0.5-3.6) Creatine Kinase MB Ratio 1.5 (0-3.0) Total Protein 6.0 gm/dl (6.4-8.2) Albumin 2.9 gm/dl (3.4-5.0) Bedside Troponin I < 0.030 ng/ml (0-0.045) Laboratory results per my review. ECG Indication: SOB/dyspnea Rate (beats per minute): 61 Rhythm: other (atrial paced) Findings: RBBB, no acute ischemic change, no ectopy, other (repolarization abnormality) Comparison ECG Date: 20-Oct-2016 Change: no significant change ED Course 2129: The student evaluated the patient at this time. We discussed findings, differential, and the plan. 2151: Past medical records reviewed. The patient was evaluated in room B2. A complete history and physical examination was performed. 3: Upon reevaluation, the patient is resting comfortably. I discussed laboratory and radiographic results with him. He verbalized agreement of the treatment plan. The patient will be evaluated for further management and care. 2350: I reviewed the patient's case with Dr. Aguilar, [facility] hospitalist. He will evaluate the patient for further management. Medical Decision Differential diagnosis: Etiologies such as infections, reactive airway disease, pneumonia, pneumothorax , COPD, CHF, cardiac ischemia, pulmonary embolism, musculoskeletal, gastrointestinal, as well as others were entertained. This patient was evaluated and appeared to be in no significant distress. IV access was obtained and laboratory work was drawn. Patient was placed on the cardiac cath tech and found to be in an atrial paced rhythm. Laboratory work indicates an anemia with a hemoglobin of 7. Patient's vital signs have remained stable in our his oxygenation does drop to 87% on room air with ambulation. I suspect the combination of the patient's anemia, his malignancy and hypoxia are causing his chest discomfort. There is no acute ischemic change on EKG however he does seem to experience some discomfort with exertion. I did discuss the possibility of blood transfusion with the patient. He has no fundamental disagreement with blood transfusion however he is concerned that it may interfere with his cancer workup. As the patient remains stable at this time I have agreed to postpone any transfusion until the hospitalist service evaluate the patient. Oncologic consultation may be warranted. The patient is aware of the plan for hospitalization and agrees. Medication Reconcilliation Current Medication List: was personally reviewed by me Blood Pressure Screening Patient's blood pressure: Elevated blood pressure Referred to hospitalist. Consults Time Called: [phone] Consulting Physician: Dr. Aguilar [facility] hospitalist Returned Call: [phone] I reviewed the patient's case with him. He will evaluate the patient for further management. Impression Primary Impression: Anemia Additional Impressions: Neutropenia Lymphoma Hypoxia Scribe Attestation The scribe's documentation has been prepared under my direction and personally reviewed by me in its entirety. I confirm that the note above accurately reflects all work, treatment, procedures, and medical decision making performed by me. Departure Information Dispostion Being Evaluated By Hospitalist Referrals No Doctor, Assigned (PCP) Patient Instructions My [facility] Problem Qualifiers
[2017-08-29] MEDS ORDERED: MAGNESIUM HYDROXIDE SUSP 30 ML UDC PO PRN (01:15)
[2017-08-29] MEDS ORDERED: ALUMINUM/MAGNESIUM/SIMETH (MAALOX MAX) 30 ML UDC PO PRN (01:15)
[2017-08-29] MEDS ORDERED: NON-FORMULARY MEDICATION (Apixaban (Eliquis) 5 MG) PO SCH (01:15)
[2017-08-29] MEDS ORDERED: ACETAMINOPHEN 325 MG TAB PO PRN (01:15)
[2017-08-29] MEDS ORDERED: ONDANSETRON INJ 2 MG/ML 2 ML VIAL IV PRN (01:15)
[2017-08-29] MEDS ORDERED: NITROGLYCERIN 0.4 MG SL PER TAB CHARGE UT SCH (01:15)
--- NOTE | 2017-08-29 02:14 | History and Physical ---
History & Physical Date & Time of Service: Aug 29, 2017 at 01:33 Chief Complaint: Pulse Ox Is Low Primary Care Physician: Callum Hampton M.D. 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 His cancer diagnosis is recent within the year and is currently undergoing work up for differentiation of the type of lymphoproliferative disorder. He reports having seen his oncologist earlier in the week and then called the office due to worsening shortness of breath and he was given a prescription for oxygen which he was supposed to pick up man tomorrow. He was using his son's pulse ox this week and noticed that his O2 was below 90. This morning however, his shortness of breath/weakness was intolerable. He does report a history of chronic intermittent rectal bleeding 2/2 radiation therapy for prostate ca several years ago. His last colonoscopy was in 2011 which revealed diverticulosis and evidence of radiation proctitis. There has been no change in his stools. Bright red bleeding happens every 3-4 days and fills the toilet bowl. In the ER, he was noted to have a hgb of 7.1 and transfusion was recommended, however the patient was unsure if this would interfere with the work up that is pending through [facility]. Supposedly he was to have blood work every week for the next 3-4 week and then subsequent admission at [facility] for further work up and BM biopsy. He wanted to verify with oncology that transfusion would be okay. Past Medical/Surgical History Medical Problems: (1) Atrial fibrillation Status: Chronic (2) Benign hypertension Status: Chronic (3) coronary bypass surgery Status: Resolved (4) Diabetes mellitus Status: Chronic (5) GERD (gastroesophageal reflux disease) Status: Chronic (6) Heart disease Status: Chronic (7) Hiatal hernia Status: Chronic (8) Implantation of cardiac pacemaker Status: Resolved (9) Kidney disease Status: Chronic (10) Pacemaker Status: Chronic Family History No significant family history Social History Smoking Status: Former Smoker Drug Use: none Marital Status: single Housing status: lives alone Occupational Status: retired Immunizations History of Influenza Vaccine: Yes Influenza Vaccine Date: Jul 20, 2010 History of Tetanus Vaccine?: Yes History of Pneumococcal: No Pneumococcal Date: Jun 13, 2006 History of Hepatitis B Vaccine: No Multi-Drug Resistant Organisms History of MDRO: No Allergies Coded Allergies: Antihistamines, Diphenhydramine-typ (Verified Adverse Reaction, Intermediate, headaches, 08/28/17) Home Medications Scheduled Apixaban (Eliquis), 5 MG PO AMPM Calcium W/ Vitamin D (Calcium), 1 TAB PO DAILY Coenzyme Q10 (Ubidecarenone) (Coenzyme Q-10), 200 MG PO DAILY Cyanocobalamin (Vitamin B-12), 1 TAB PO DAILY Digoxin (Digox), 0.125 MG PO DAILY Esomeprazole Magnesium (Nexium), 40 MG PO DAILY Folic Acid (Folic Acid), 800 MCG PO DAILY Glipizide (Glipizide Er), 10 MG PO QAM Glipizide (Glipizide Er), 5 MG PO QPM Metoprolol Succinate (Metoprolol Succinate ER), 100 MG PO BID Montelukast Sodium (Singulair), 10 MG PO QPM Multivitamin (Multivitamin), 1 TAB PO DAILY Nitroglycerin (Nitrostat), 0.4 MG UT PRN Pioglitazone (Actos), 15 MG PO DAILY Ranitidine Hcl (Zantac), 300 MG PO UD [Neurvasia], 1 DOSE PO DAILY Review of Systems Constitutional: No fever, No chills, No sweats Respiratory: + shortness of breath, + dyspnea on exertion, No cough, No wheezing Cardiovascular: No chest pain Abdomen: + GI bleeding, No pain, No nausea, No vomiting, No diarrhea, No constipation Musculoskeletal: + joint pain, No calf pain Genitourinary - Male: No hematuria, No dysuria, No urinary frequency Physical Exam Vital Signs Date Time Temp Pulse Resp B/P (MAP) Pulse Ox O2 Delivery O2 Flow Rate FiO2 08/29/17 01:11 71 08/29/17 00:45 179/72 08/29/17 00:30 72 23 99 08/29/17 00:00 71 17 95 08/28/17 23:30 72 17 93 08/28/17 23:12 87 Room Air 08/28/17 23:00 65 19 95 08/28/17 21:48 97 Room Air 08/28/17 21:47 96 Room Air 08/28/17 21:45 60 08/28/17 21:24 37.1 82 22 144/61 92 Room Air General Appearance: no apparent distress Eyes: PERRL, EOMI ENT: hearing grossly normal Respiratory/Chest: lungs clear, normal breath sounds, no respiratory distress, no accessory muscle use Cardiovascular: regular rate, rhythm, no edema Abdomen/GI: normal bowel sounds, non tender, soft Extremities/Musculoskelatal: no calf tenderness, no pedal edema Neurologic/Psych: no motor/sensory deficits, alert, normal mood/affect, oriented x 3 Diagnostics Laboratory Results Results Past 24 Hours Test 08/28/17 21:54 08/28/17 22:02 08/29/17 00:45 Range/Units White Blood Count 7.49 4.8-10.8 K/uL Red Blood Count 2.04 4.7-6.1 M/uL Hemoglobin 7.1 14.0-18.0 g/dL Hematocrit 21.3 42-52 % Mean Corpuscular Volume 104.4 80-100 fL Mean Corpuscular Hemoglobin 34.8 25-34 pg Mean Corpuscular Hemoglobin Concent 33.3 32-36 g/dl Platelet Count 123 130-400 K/uL Mean Platelet Volume 11.3 7.4-10.4 fL Neutrophils (%) (Auto) 9.5 % Lymphocytes (%) (Auto) 81.2 % Monocytes (%) (Auto) 8.4 % Eosinophils (%) (Auto) 0.3 % Basophils (%) (Auto) 0.3 % Neutrophils # (Auto) 0.72 1.4-6.5 K/uL Lymphocytes # (Auto) 6.08 1.2-3.4 K/uL Monocytes # (Auto) 0.63 0.11-0.59 K/uL Eosinophils # (Auto) 0.02 0-0.5 K/uL Basophils # (Auto) 0.02 0-0.2 K/uL RDW Standard Deviation 82.7 36.4-46.3 fL RDW Coefficient of Variation 22.6 11.5-14.5 % Immature Granulocyte % (Auto) 0.3 % Immature Granulocyte # (Auto) 0.02 0.00-0.02 K/uL Nucleated RBC Absolute Count (auto) 0.04 0-0 K/uL Nucleated Red Blood Cells % 0.5 % Polychromasia 1+ Anisocytosis PRESENT Prothrombin Time 11.5 9.0-12.0 SECONDS Prothromb Time International Ratio 1.1 0.9-1.1 Activated Partial Thromboplast Time 22.4 21.0-31.0 SECONDS Partial Thromboplastin Ratio 0.9 Sodium Level 141 136-145 mmol/L Potassium Level 4.0 3.5-5.1 mmol/L Chloride Level 110 98-107 mmol/L Carbon Dioxide Level 22 21-32 mmol/L Anion Gap 9.0 3-11 mmol/L Blood Urea Nitrogen 37 7-18 mg/dl Creatinine 1.53 0.60-1.40 mg/dl Estimated GFR () 46.4 Estimated GFR (Non- 40.0 BUN/Creatinine Ratio 24.2 10-20 Random Glucose 131 70-99 mg/dl Calcium Level 7.9 8.5-10.1 mg/dl Magnesium Level 2.0 1.8-2.4 mg/dl Total Bilirubin 0.6 0.2-1 mg/dl Direct Bilirubin 0.2 0-0.2 mg/dl Aspartate Amino Transf (AST/SGOT) 30 15-37 U/L Alanine Aminotransferase (ALT/SGPT) 32 12-78 U/L Alkaline Phosphatase 72 45-117 U/L Total Creatine Kinase 40 39-308 U/L Creatine Kinase MB 0.6 0.5-3.6 ng/ml Creatine Kinase MB Ratio 1.5 0-3.0 Total Protein 6.0 6.4-8.2 gm/dl Albumin 2.9 3.4-5.0 gm/dl Bedside Troponin I < 0.030 0-0.045 ng/ml Impression Assessment and Plan This is an 87 y/o who presents with worsening fatigue/weakness. Anemia 2/2 GI bleed + NK lymphoma (pancytopenia) Case discussed with Dr. Dash who reports no contraindication to blood transfusion- rare form of NK lymphoma hgb of 7.1, 2 units pRBC's ordered Hemoccult pending GI Consult, keep NPO Protonix BID Serial H/H Consider heme/onc consult if no improvement in symptoms despite transfusion. May also review [facility] records for current plan Hold Elaquis Neutropenic precautions Iron studies/b12/folate done in january and normal. PAF w/ sick sinus s/p Pacemaker, CAD s/p CABG, HTN Continue Digoxin and metoprolol Hold Elaquis Hypercholesterolemia Atorvastatin was recently discontinued on a temporary basis due to musculoskeletal complaints DM 2 Hold Glipizide and Actos ISS Accucheks A1c in January was 5.0 probably No Need for lantus at this point with well controlled DM CKD stage III baseline Trend BMP h/o of Prostate ca- noted DVT proph Chemical contraindicated in light of rectal bleeding SCD, LAXMI Code: DNR Resident Physician Supervision Note: I was present with Dr. Lakhani during the history and exam. I discussed the case with the resident and agree with the findings and plan as documented in the note. Any exceptions or clarifications are listed here: 85 y/o M Hx lymphoma - ongoing chemotherapy, PAF, CKD, CAD, HTN - presenting with progressive weakness and had initially c/o SOB although he denied this when requestioned by the medical service. He also states that he has chronic rectal bleeding and did not report worsening. He denies fevers, diarrhea, CP or lightheadedness. Initial HB as obtained by the ER was 7.1. O/E Elderly male - AAO x 3 - no distress S1,2 R CTAB NT, ND No CCE P: We will provide IVF and a transfusion. If his symptoms do not improve with improvement of Hb, additional etiologies should be explored and the heme/onc service should be consulted We have consulted GI due to chronic bleeding. He takes Eliquis daily which has been held. Documented By: Francis Aguilar VTE Prophylaxis VTE Risk Assessment Done? Y/N: Yes Risk Level: Moderate Given or contraindicated: Contraindicated
--- NOTE | 2017-08-29 03:00 | NUR ---
A note: Patient arrived on floor @ 0145. Alert and oriented. Supervision with ambulation. Instructed on safety, Call falcon usage. Verbalizes understanding. Currently receiving first unit of blood. Ordered for two units. Neutropenic and fall precautions in place. Social Service consult placed. Primary R.N to assume care.
[2017-08-29 05:50] LABS: CALCIUM 7.9 mg/dl (8.5-10.1); CREATININE 1.34 mg/dl (0.60-1.40)
[2017-08-29 06:03] LABS: HEMATOCRIT 22.1 % (42-52); HEMOGLOBIN 7.4 g/dL (14.0-18.0); MEAN CELL VOLUME 101.4 fL (80-100); MEAN CORPUSCULAR HEMOGLOBIN 33.9 pg (25-34); MEAN CORPUSCULAR HGB CONC 33.5 g/dl (32-36); MEAN PLATELET VOLUME 11.7 fL (7.4-10.4); NUCLEATED RED BLOOD CELL ABS 0.08 K/uL (0-0); PLATELET COUNT 106 K/uL (130-400); RED CELL DISTRIBUTION WIDTH CV 22.4 % (11.5-14.5); RED CELL DISTRIBUTION WIDTH SD 76.7 fL (36.4-46.3); WHITE BLOOD COUNT 7.85 K/uL (4.8-10.8)
[2017-08-29 06:55] LABS: BASO % 0.4 %; BASO ABS # 0.03 K/uL (0-0.2); EOS % 0.4 %; EOS ABS # 0.03 K/uL (0-0.5); IG# 0.03 K/uL (0.00-0.02); LYMPH % 80.3 %; MONO % 10.1 %; MONO ABS # 0.79 K/uL (0.11-0.59); NEUT % 8.4 %; NEUT ABS # 0.67 K/uL (1.4-6.5)
[2017-08-29] MEDS: SODIUM CHLORIDE 0.9% 1000ML 1,000 ML IV SCH ×3 (07:27→23:23)
[2017-08-29] MEDS ORDERED: COENZYME Q10 200 MG PO SCH (08:00)
[2017-08-29] MEDS ORDERED: NON-FORMULARY MEDICATION (Cyanocobalamin (Vitamin B-12) 1 TAB) PO SCH (08:00)
[2017-08-29] MEDS ORDERED: NON-FORMULARY MEDICATION (Esomeprazole Magnesium (Nexium) 40 MG) PO SCH (08:00)
[2017-08-29] MEDS: FoLIC ACID TAB 400 MCG TAB PO SCH (09:02)
[2017-08-29] MEDS: CALCIUM 600MG + VIT D 400 IU TAB PO SCH (09:02)
[2017-08-29] MEDS: METOPROLOL SUCC 50MG EXT REL TAB PO SCH ×2 (09:03→20:25)
[2017-08-29] MEDS: PANTOprazole INJ 40 MG in SYRINGE 0 ML IV SCH ×2 (09:03→20:27)
[2017-08-29] MEDS: INSULIN ASPART 100 UNITS/ML 3 ML PEN SC SCH ×4 (09:07→20:33)
[2017-08-29 11:43] LABS: HEMATOCRIT 25.4 % (42-52); HEMOGLOBIN 8.4 g/dL (14.0-18.0)
[2017-08-29] MEDS: DIGOXIN 0.125 MG TAB PO SCH (16:02)
--- NOTE | 2017-08-29 16:26 | Family Medicine Progress Note ---
Progress Note Date of Service Aug 29, 2017. Subjective Pt evaluation today including: conversation w/ patient, physical exam, chart review, conversation w/ accounting consultant, review of inpatient medication list Pain: none PO Intake: NPO Voiding: no voiding problems Patient is feeling better after receiving blood transfusions No bm's overnight No rectal bleeding overnight Fatigue and shortness of breath have both improved Constitutional: No fever, No chills, No sweats Respiratory: No cough, No sputum, No shortness of breath, No dyspnea on exertion Cardiovascular: No chest pain, No edema, No palpitations Abdomen: No pain, No nausea, No vomiting, No diarrhea, No constipation, No GI bleeding Male : No dysuria, No urinary frequency Heme: No abnormal bleeding/bruising, No night sweats Endo: No fatigue Skin: No new/changing skin lesions, No bleeding Medications Current Inpatient Medications Medications (Trade) Dose Ordered Sig/Jana Route Start Time Stop Time Status Last Admin Dose Admin Acetaminophen (Tylenol Tab) 650 mg Q4H PRN PO 08/29/17 01:15 09/28/17 01:14 Al Hydrox/Mg Hydrox/Simethicone (Maalox Max Susp) 15 ml Q4H PRN PO 08/29/17 01:15 09/28/17 01:14 Magnesium Hydroxide (Milk Of Magnesia Susp) 30 ml Q6H PRN PO 08/29/17 01:15 09/28/17 01:14 Ondansetron HCl (Zofran Inj) 4 mg Q6H PRN IV 08/29/17 01:15 09/28/17 01:14 Digoxin (Lanoxin Tab) 0.125 mg DAILY@1600 PO 08/29/17 16:00 09/28/17 15:59 08/29/17 16:02 0.125 MG Montelukast Sodium (Singulair Tab) 10 mg QPM PO 08/29/17 21:00 09/28/17 20:59 Nitroglycerin (Nitrostat Tab) 0.4 mg PRN UT 08/29/17 01:15 09/28/17 01:14 Calcium/Vitamin D (Caltrate Plus Tab) 1 tab DAILY PO 08/29/17 08:00 09/28/17 08:59 Folic Acid (Folvite Tab) 800 mcg DAILY PO 08/29/17 08:00 1/19/18 08:59 Metoprolol Succinate (Toprol Xl Tab) 100 mg BID PO 08/29/17 08:00 09/28/17 08:59 08/29/17 09:03 100 MG Insulin Aspart (novoLOG ASPART) SLIDING SCALE G... ACHS SC 08/29/17 06:30 09/28/17 06:59 Pantoprazole Sodium 40 mg/ Syringe 10 ml @ 5 mls/min DAILY@ IV 08/29/17 09:00 09/28/17 08:59 08/29/17 09:03 5 MLS/MIN Sodium Chloride 1,000 ml @ 75 mls/hr [id number] IV 08/29/17 02:30 09/28/17 02:29 08/29/17 07:27 75 MLS/HR Objective Vital Signs Date Time Temp Pulse Resp B/P (MAP) Pulse Ox O2 Delivery O2 Flow Rate FiO2 08/29/17 16:02 62 08/29/17 15:30 Nasal Cannula 2.0 08/29/17 14:08 37.1 66 16 137/69 08/29/17 11:47 36.8 60 18 138/66 (90) 92 Room Air 08/29/17 08:00 Nasal Cannula 2.0 08/29/17 07:30 36.6 58 18 148/73 (98) 97 Room Air 2.0 08/29/17 05:43 36.6 61 19 111/64 96 08/29/17 05:31 36.6 63 18 104/61 94 2.0 08/29/17 05:18 36.6 64 18 107/61 93 2.0 08/29/17 04:44 36.6 62 18 96/53 93 2.0 08/29/17 03:45 36.6 63 20 107/41 95 2.0 08/29/17 03:45 36.6 62 20 107/41 (63) 95 Nasal Cannula 2.0 08/29/17 03:14 36.6 65 20 108/48 94 08/29/17 03:06 Nasal Cannula 2.0 08/29/17 03:00 36.6 64 20 116/56 93 2.0 08/29/17 02:35 36.6 65 18 103/55 95 2.0 08/29/17 02:01 36.8 64 20 147/65 (92) 99 Nasal Cannula 2.0 08/29/17 01:30 68 17 134/61 97 08/29/17 01:11 71 08/29/17 00:45 179/72 08/29/17 00:30 72 23 99 08/29/17 00:00 71 17 95 08/28/17 23:30 72 17 93 08/28/17 23:12 87 Room Air 08/28/17 23:00 65 19 95 08/28/17 21:48 97 Room Air 08/28/17 21:47 96 Room Air 08/28/17 21:45 60 08/28/17 21:24 37.1 82 22 144/61 92 Room Air Physical Exam General Appearance: WD/WN, no apparent distress ENT: hearing grossly normal, pharynx normal Neck: no JVD, no carotid bruits, trachea midline Respiratory/Chest: lungs clear, no respiratory distress, no accessory muscle use Cardiovascular: regular rate, rhythm, no edema, no murmur Abdomen: normal bowel sounds, non tender, soft Extremities: no pedal edema, no calf tenderness, normal capillary refill Neurologic/Psychiatric: no motor/sensory deficits, normal mood/affect, oriented x 3 Skin: normal color, warm/dry, no rash Laboratory Results Results Past 24 Hours Test 08/28/17 21:54 08/28/17 22:02 08/29/17 00:45 08/29/17 05:08 Range/Units White Blood Count 7.49 7.85 4.8-10.8 K/uL Red Blood Count 2.04 2.18 4.7-6.1 M/uL Hemoglobin 7.1 7.4 14.0-18.0 g/dL Hematocrit 21.3 22.1 42-52 % Mean Corpuscular Volume 104.4 101.4 80-100 fL Mean Corpuscular Hemoglobin 34.8 33.9 25-34 pg Mean Corpuscular Hemoglobin Concent 33.3 33.5 32-36 g/dl Platelet Count 123 106 130-400 K/uL Mean Platelet Volume 11.3 11.7 7.4-10.4 fL Neutrophils (%) (Auto) 9.5 8.4 % Lymphocytes (%) (Auto) 81.2 80.3 % Monocytes (%) (Auto) 8.4 10.1 % Eosinophils (%) (Auto) 0.3 0.4 % Basophils (%) (Auto) 0.3 0.4 % Neutrophils # (Auto) 0.72 0.67 1.4-6.5 K/uL Lymphocytes # (Auto) 6.08 6.30 1.2-3.4 K/uL Monocytes # (Auto) 0.63 0.79 0.11-0.59 K/uL Eosinophils # (Auto) 0.02 0.03 0-0.5 K/uL Basophils # (Auto) 0.02 0.03 0-0.2 K/uL RDW Standard Deviation 82.7 76.7 36.4-46.3 fL RDW Coefficient of Variation 22.6 22.4 11.5-14.5 % Immature Granulocyte % (Auto) 0.3 0.4 % Immature Granulocyte # (Auto) 0.02 0.03 0.00-0.02 K/uL Nucleated RBC Absolute Count (auto) 0.04 0.08 0-0 K/uL Nucleated Red Blood Cells % 0.5 1.1 % Polychromasia 1+ 1+ Anisocytosis PRESENT PRESENT Prothrombin Time 11.5 9.0-12.0 SECONDS Prothromb Time International Ratio 1.1 0.9-1.1 Activated Partial Thromboplast Time 22.4 21.0-31.0 SECONDS Partial Thromboplastin Ratio 0.9 Sodium Level 141 141 136-145 mmol/L Potassium Level 4.0 4.0 3.5-5.1 mmol/L Chloride Level 110 112 98-107 mmol/L Carbon Dioxide Level 22 26 21-32 mmol/L Anion Gap 9.0 3.0 3-11 mmol/L Blood Urea Nitrogen 37 36 7-18 mg/dl Creatinine 1.53 1.34 0.60-1.40 mg/dl Estimated GFR () 46.4 54.4 Estimated GFR (Non- 40.0 47.0 BUN/Creatinine Ratio 24.2 26.5 10-20 Random Glucose 131 121 70-99 mg/dl Calcium Level 7.9 7.9 8.5-10.1 mg/dl Magnesium Level 2.0 1.8-2.4 mg/dl Total Bilirubin 0.6 0.2-1 mg/dl Direct Bilirubin 0.2 0-0.2 mg/dl Aspartate Amino Transf (AST/SGOT) 30 15-37 U/L Alanine Aminotransferase (ALT/SGPT) 32 12-78 U/L Alkaline Phosphatase 72 45-117 U/L Total Creatine Kinase 40 39-308 U/L Creatine Kinase MB 0.6 0.5-3.6 ng/ml Creatine Kinase MB Ratio 1.5 0-3.0 Total Protein 6.0 6.4-8.2 gm/dl Albumin 2.9 3.4-5.0 gm/dl Bedside Troponin I < 0.030 0-0.045 ng/ml Urine Color YELLOW Urine Appearance CLEAR CLEAR Urine pH 5.5 4.5-7.5 Urine Specific Mathews 1.019 1.000-1.030 Urine Protein NEG NEG Urine Glucose (UA) NEG NEG Urine Ketones NEG NEG Urine Occult Blood NEG NEG Urine Nitrite NEG NEG Urine Bilirubin NEG NEG Urine Urobilinogen NEG NEG Urine Leukocyte Esterase NEG NEG Smudge Cells PRESENT Platelet Estimate DECREASED Spherocytes OCCASIONAL Est Creatinine Clear Calc Drug Dose 42.3 ml/min Test 08/29/17 07:42 08/29/17 11:29 08/29/17 12:09 Range/Units Bedside Glucose 136 155 70-99 mg/dl Hemoglobin 8.4 14.0-18.0 g/dL Hematocrit 25.4 42-52 % Assessment and Plan This is an 87 y/o who presents with worsening fatigue/weakness secondary to anemia Patient is feeling better after blood transfusions. There is question as to where this patients blood loss is coming from. 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 The patient denies there been dark stools and says that the blood has been bright red in nature therefore this is more likely to be lower GI bleeding source. Patient is currently being worked up for diagnosed lymphoma. He had a bone marrow biopsy done here in [place] which did not result in a definitive diagnosis. He currently has plans to go down to [place] in 3-4 weeks in order to get a workup for his lymphoma which will include a bone marrow biopsy. According to the patient he has been sending them blood work every week in order for them to follow his blood counts. Anemia 2/2 GI bleed + lymphoma (pancytopenia) - Patient given two units of PRBC and Hgb came up to 8.4 - Will give one more unit this afternoon - Hemoccult pending - GI Consult, keep NPO - Protonix IV BID - Hold Eliquis - Neutropenic precautions - Iron studies/b12/folate done in january and normal. - Colonoscopy in 2011 showed radiation proctitis and diverticulosis PAF w/ sick sinus s/p Pacemaker, CAD s/p CABG, HTN - Continue Digoxin and metoprolol - Hold Eliquis Hypercholesterolemia - Atorvastatin was recently discontinued on a temporary basis due to musculoskeletal complaints DM 2 - Hold Glipizide and Actos - ISS - Accucheks - A1c in January was 5.0 CKD stage III - GFR 47, creatine 1.34 - continue to monitor h/o of Prostate ca - in 1998 and in remission DVT proph Chemical contraindicated in light of rectal bleeding SCD, LAXMI Code: DNR Resident Physician Supervision Note: I was present with PGY2 Dr. Marcelino Oneil during the history and exam. I discussed the case with the resident and agree with the findings and plan as documented in the note. Any exceptions or clarifications are listed here: none. Pt w/o abd pain or further episodes of rectal bleeding. No dyspnea today. VSS no fever gen - NAD skin - pale heart - RRR, s1, split s2 prominent lungs - CTA b/l abd - soft, NT, ND, BS+ ext - no edema Hb 8.4 A/P: acute/chronic anemia - acute component possibly GI blood loss in origin; chronic component likely from lymphoma process Tx 1 additional unit of PRBCs today NK cell lymphoma - [place] [facility] [place] for future possible EGD and/or colonoscopy by GI a. fib - holding anticoagulation due to possible GI bleeding neutropenia - 2nd to lymphoma - neutropenic precautions Documented By: Callum Berger MD Continued [facility] stay due to: other Discharge planning: uncertain
--- NOTE | 2017-08-29 18:19 | GASTROINTESTINAL CONSULTATION ---
DATE OF CONSULTATION: 08/29/2017 CHIEF COMPLAINT: Anemia, bright red blood per rectum. HISTORY OF PRESENT ILLNESS: Mr. Estrella is an 87-year-old white male with a history of prostate cancer, having received radiation treatments in 1998 and 1999. 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 The patient has noted he had increased fatigue over the last week or so. The patient has a history of chronic intermittent rectal bleeding, presumably due to prostate cancer and radiation therapy. He has a history of colon on colonoscopy in 2011, which demonstrated diverticular disease and radiation proctopathy. The patient denies any overt diarrhea, although at times can feel some sense of straining and perhaps at this time bleeding is worse. The amount of bleeding noted, however, is fairly copious as he is also on Eliquis for atrial fibrillation. At the time of ER presentation, his hemoglobin was 7.1 and he received 3 units of packed red blood cells. He reports feeling better since transfusion. The patient denies any abdominal pain, nausea, vomiting, hematemesis, coffee-ground emesis. PAST MEDICAL HISTORY: Includes atrial fibrillation, hypertension, coronary artery disease with bypass surgery, diabetes, GERD with hiatal hernia, chronic kidney disease and history of a cardiac pacemaker. The patient has not used NSAIDs as is generally tender to bother his stomach. He is on Eliquis. FAMILY HISTORY: Noncontributory. SOCIAL HISTORY: The patient smoked in the past but no longer does so; he lives alone and is retired. ALLERGIES: ANTIHISTAMINES (BENADRYL). HOME MEDICATIONS: Include Eliquis, calcium, Coenzyme Q, cyanocobalamin, digoxin, Nexium 40 mg daily, folic acid, glipizide, Lopressor, Singulair, multivitamin, nitroglycerin, Actos, ranitidine and Neurvasia. REVIEW OF SYSTEMS: Otherwise noncontributory based on 13-point exam except for mentioned above. PHYSICAL EXAMINATION: GENERAL: Today shows an 87-year-old white male looking younger than his stated age. He is resting comfortably in bed. He is awake, alert and oriented x3. HEENT: Sclerae are anicteric, conjunctivae moist. Oral mucosa moist. NECK: There is no cervical or supraclavicular adenopathy. I do not appreciate thyromegaly. HEAD: Normocephalic, atraumatic. NEUROLOGIC: Normal range of motion. There are no focal neurologic defects. HEART: Normal S1, S2, irregular in rate. LUNGS: Clear to auscultation without wheezes. ABDOMEN: Soft, flat, nontender, nondistended with positive bowel sounds. There is no rebound or guarding. I do not appreciate hepatosplenomegaly. EXTREMITIES: Without clubbing, cyanosis or edema. RECTAL: Deferred. LABORATORY STUDIES: The patient's blood work on admission showed a hemoglobin of 7.1 with a white count of 7.49, platelets of 123,000. INR was 1.1 and PTT 22.4. BUN and creatinine were 37 and 1.53 and normal potassium of 4.0. His liver tests were satisfactory and normal, bilirubin 0.6, AST 30, ALT 32, alkaline phosphatase 72, albumin 2.9, bedside troponin less than 0.030. IMAGING DATA: Chest x-ray on yesterday revealed linear subsegmental left basilar opacities with atelectasis and a moderate hiatal hernia. IMPRESSION AND PLAN: I spoke with the patient at length regarding the source of the patient's anemia, which at the present time may reflect either inefficient hematopoiesis due to his lymphoproliferative disorder as well as gastrointestinal sources of blood loss, given his rectal bleeding, history of radiation proctopathy. There is no weight loss, nausea or vomiting, although there is a sizable hiatal hernia. The overall description has never been melenic or accompanied by upper abdominal pain. I made the following recommendations: I believe colonoscopy and perhaps upper push enteroscopy is reasonable to exclude sources of bleeding. If the patient is to continue on anticoagulant therapy for his atrial fibrillation, then the risk for continued gastrointestinal bleeding is sizable. There has been an increase in the intensity of rectal bleeding, although the patient is unclear if it correlates with the initiation of Eliquis. The patient described that his primary care provider, Dr. Hampton, is apprehensive about any endoscopic diagnostic studies to identify source of bleeding, presumably due to his advanced age and the likelihood that the anemia is hematopoietic in origin. At this point, the patient is reluctant to undergo endoscopic studies. He has been n.p.o., although clears have been brought to his room this evening. I will attempt to contact the hospitalist on service to see if there is an intention for endoscopic assessment given his anticoagulation requirement and the symptomatic anemia that he has developed. We will tentatively schedule the test with approval of the primary service and Dr. Hampton; however, hopefully, this can be agreed with tonight, so the patient can begin the prep in a timely manner. Will follow with you. Would continue to follow hemoglobin daily, maintain proton pump inhibitor therapy. All questions answered.
[2017-08-29] MEDS: LAVAGE SOLUTION 4000ML PO SCH ×13 (19:11→21:30)
[2017-08-29 19:30] LABS: HEMATOCRIT 30.9 % (42-52); HEMOGLOBIN 10.4 g/dL (14.0-18.0); MEAN CELL VOLUME 97.8 fL (80-100); MEAN CORPUSCULAR HEMOGLOBIN 32.9 pg (25-34); MEAN CORPUSCULAR HGB CONC 33.7 g/dl (32-36); MEAN PLATELET VOLUME 11.5 fL (7.4-10.4); NUCLEATED RED BLOOD CELL ABS 0.07 K/uL (0-0); PLATELET COUNT 108 K/uL (130-400); RED CELL DISTRIBUTION WIDTH CV 21.9 % (11.5-14.5); RED CELL DISTRIBUTION WIDTH SD 71.7 fL (36.4-46.3); WHITE BLOOD COUNT 7.46 K/uL (4.8-10.8)
[2017-08-29 19:54] LABS: BASO % 0.3 %; BASO ABS # 0.02 K/uL (0-0.2); EOS % 0.4 %; EOS ABS # 0.03 K/uL (0-0.5); IG# 0.02 K/uL (0.00-0.02); LYMPH % 79.9 %; LYMPH ABS # 5.96 K/uL (1.2-3.4); MONO % 9.2 %; MONO ABS # 0.69 K/uL (0.11-0.59); NEUT % 9.9 %; NEUT ABS # 0.74 K/uL (1.4-6.5)
--- NOTE | 2017-08-29 20:00 | NUR ---
A/ID: pt alert and oriented x4, resting in bed at this time. VSS on 2L via NC, which he wears intermittently. denies chest pain and SOB. NSS infusing at 75 ml/hr. lung sounds clear throughout. trace edema noted to BLE. pt will be NPO at midnight for colonoscopy in the morning. GI is following. pt currently lives at home alone. discharge date and plan uncertain at this time. call falcon within reach. will continue to monitor.
[2017-08-29] MEDS: MONTELUKAST SOD 10 MG TAB PO SCH ×2 (20:25→20:35)
[2017-08-30] MEDS: LAVAGE SOLUTION 4000ML PO SCH (04:15)
[2017-08-30 04:20] VITALS: BP 135/68; PULSE 86; TEMP 36.6; O2SAT 92
[2017-08-30 07:46] LABS: HEMATOCRIT 28.4 % (42-52); HEMOGLOBIN 9.4 g/dL (14.0-18.0)
[2017-08-30] MEDS: CALCIUM 600MG + VIT D 400 IU TAB PO SCH (08:00)
[2017-08-30] MEDS: METOPROLOL SUCC 50MG EXT REL TAB PO SCH ×2 (08:00→19:47)
[2017-08-30] MEDS: FoLIC ACID TAB 400 MCG TAB PO SCH (08:00)
[2017-08-30] MEDS: INSULIN ASPART 100 UNITS/ML 3 ML PEN SC SCH ×4 (08:14→20:19)
[2017-08-30] MEDS: PANTOprazole INJ 40 MG in SYRINGE 0 ML IV SCH ×2 (08:14→19:47)
--- NOTE | 2017-08-30 10:28 | Clinical Documentation Query ---
CLINICAL DOCUMENTATION QUERY Dr. ARDON, In your clinical opinion is this patient being managed for: ( ) possible Acute blood loss anemia ( ) Not Agree ( ) Other explanation of clinical findings (Please Explain) ( ) Unable to determine (Please Define) ( ) Need to Discuss The medical record reflects the following clinical findings, treatment, and risk factors. Clinical Indicators: 87 yo male presenting with dyspnea and chest discomfort. Hgb 7.1, Hct 21.3, Treatment: transfuse PRBC, serial CBC/H&H, GI consult, IV protonix, IV fluids, hold elaquis Risk Factors: suspected GI bleed, lymphoma Please clarify and document your clinical opinion in the progress notes and discharge summary. Terms such as "probable", "suspected", "likely", "questionable", "possible", or "still to be ruled out" are acceptable. IF IN AGREEMENT, YOU MUST DOCUMENT ABOVE DIAGNOSTIC STATEMENT IN DAILY PROGRESS NOTES AND DISCHARGE SUMMARY. This document is not part of the patient's record. Thank You, Sarai Vazquez RN [phone]
--- NOTE | 2017-08-30 10:30 | Clinical Documentation Query ---
CLINICAL DOCUMENTATION QUERY Dr. TIERNEY, In your clinical opinion is this patient being managed for: ( x) possible Acute blood loss anemia ( ) Not Agree ( ) Other explanation of clinical findings (Please Explain) ( ) Unable to determine (Please Define) ( ) Need to Discuss The medical record reflects the following clinical findings, treatment, and risk factors. Clinical Indicators: 87 yo male presenting with dyspnea and chest discomfort. Hgb 7.1, Hct 21.3, Treatment: transfuse PRBC, serial CBC/H&H, GI consult, IV protonix, IV fluids, hold elaquis Risk Factors: suspected GI bleed, lymphoma Please clarify and document your clinical opinion in the progress notes and discharge summary. Terms such as "probable", "suspected", "likely", "questionable", "possible", or "still to be ruled out" are acceptable. IF IN AGREEMENT, YOU MUST DOCUMENT ABOVE DIAGNOSTIC STATEMENT IN DAILY PROGRESS NOTES AND DISCHARGE SUMMARY. This document is not part of the patient's record. Thank You, Sarai Vazquez RN [phone]
[2017-08-30 11:12] VITALS: BP 157/70; PULSE 66; TEMP 36.7; O2SAT 96
[2017-08-30] MEDS: SODIUM CHLORIDE 0.9% 1000ML 1,000 ML IV SCH (13:15)
--- NOTE | 2017-08-30 13:55 | NUR ---
A: Pt to radiology holding for colonoscopy via wheelchair with transport.
--- NOTE | 2017-08-30 14:17 | History & Physical Bridge Note ---
H&P Re-Evaluation Bridge Note: I have examined the patient, reviewed the History & Physical and in the interval since the performance of the History & Physical I have noted the following changes of clinical significance: No changes noted consent obtained for colonoscopy with bx and possible APC
--- NOTE | 2017-08-30 14:40 | NUR ---
Patient identified as >80 and living alone. 87 year old male admitted with anemia who has Lymphoma who lives alone in his home in [place]. Patient has a daughter in [place] and a son in [place] who are supportive. Patient does not have assistive devices and is functionally independent. Patient was upset when I talked with him today because he had not been taken for his colonoscopy. He does not want to stay another night. Told him I will talk with nursing. Talked with title department manager about the patient's concerns. Talked with a director of social services, Imani Currie, from [place] today. Her mother is a friend of the patient. Asked patient if I could talk with Imani and he said yes. Imani is helping the patient with private duty caregivers and asked about home health. We discussed local agencies and she will contact Home Nursing Agency. She will call me with updated information. Patient plans on returning home. Will follow for discharge planning.
[2017-08-30] MEDS ORDERED: ONDANSETRON INJ 2 MG/ML 2 ML VIAL ONE (14:41)
[2017-08-30] MEDS ORDERED: MIDAZOLAM HCL 1 MG/ML 2ML VIAL ONE (14:41)
[2017-08-30] MEDS ORDERED: PROPOFOL IV EMULSION 10 MG/ML 20 ML VIAL IV ONE (14:41)
[2017-08-30] MEDS ORDERED: LIDOCAINE HCL 2% 2 ML VIAL (20MG/ML) ONE (14:41)
[2017-08-30] MEDS ORDERED: EpHEDrine SULFATE 50MG/5ML SYR ONE (15:24)
--- NOTE | 2017-08-30 15:40 | Anesthesiology Progress Note ---
Anesthesia Post Op Note Date & Time Aug 30, 2017 at 15:40 Vital Signs Pain Intensity: 0 Vital Signs Past 12 Hours Date Time Temp Pulse Resp B/P (MAP) Pulse Ox O2 Delivery O2 Flow Rate FiO2 08/30/17 15:28 80 20 132/52 (78) 95 Room Air 08/30/17 14:04 37.2 60 20 172/69 (103) 97 Room Air 08/30/17 11:12 36.7 66 20 157/70 (99) 96 Room Air 08/30/17 08:00 Nasal Cannula 2.0 08/30/17 04:20 36.6 86 20 135/68 (90) 92 Room Air Notes Mental Status: alert / awake / arousable, participated in evaluation Pt Amnestic to Procedure: Yes Nausea / Vomiting: adequately controlled Pain: adequately controlled Airway Patency, RR, SpO2: stable & adequate BP & HR: stable & adequate Hydration State: stable & adequate Anesthetic Complications: no major complications apparent
--- NOTE | 2017-08-30 15:41 | GI REPORT ---
Procedure Date: 08/30/2017 2:38 PM Procedure: Colonoscopy Indications: Hematochezia Medicines: Propofol per Anesthesia Complications: No immediate complications. Estimated blood loss: Minimal. Estimated Blood Loss: Estimated blood loss was minimal. Procedure: Pre-Anesthesia Assessment: - Prior to the procedure, a History and Physical was performed, and patient medications and allergies were reviewed. The patient's tolerance of previous anesthesia was also reviewed. The risks and benefits of the procedure and the sedation options and risks were discussed with the patient. All questions were answered, and informed consent was obtained. Prior Anticoagulants: The patient has taken Eliquis (apixaban), last dose was 2 days prior to procedure. ASA Grade Assessment: III - A patient with severe systemic disease. After reviewing the risks and benefits, the patient was deemed in satisfactory condition to undergo the procedure. After I obtained informed consent, the scope was passed under direct vision. Throughout the procedure, the patient's blood pressure, pulse, and oxygen saturations were monitored continuously. The scope was introduced through the anus and advanced to the terminal ileum, with identification of the appendiceal orifice and IC valve. The colonoscopy was performed without difficulty. The patient tolerated the procedure well. The quality of the bowel preparation was good. Findings: The perianal and digital rectal examinations were normal. Pertinent negatives include normal sphincter tone, no palpable rectal lesions and no anal lesion or abnormality was detected. Multiple medium-sized patchy angioectasias with bleeding on contact were found in the distal rectum. Fulguration to ablate the lesion to prevent bleeding by argon plasma at 1.2 liters/minute and 20 campbell was successful. Estimated blood loss was minimal. Multiple small-mouthed diverticula were found in the sigmoid colon and in the descending colon. The exam was otherwise without abnormality. The terminal ileum appeared normal. The exam was otherwise without abnormality. Impression: - Multiple colonic angioectasias. Treated with argon plasma coagulation (APC). - Diverticulosis in the sigmoid colon and in the descending colon. - The examination was otherwise normal. - The examined portion of the ileum was normal. - The examination was otherwise normal. - No specimens collected. Recommendation: - Discharge patient to home (ambulatory). - Advance diet as tolerated. - Check hemoglobin daily. - Resume Eliquis (apixaban) at prior dose in 2 days. - Return patient to [facility] for ongoing care. - Repeat colonoscopy PRN for retreatment. MD Isaac Hurst MD 08/30/2017 3:40:53 PM This report has been signed electronically. Note Initiated On: 08/30/2017 2:38 PM I attest to the content of the Intraoperative Record and orders documented therein, exceptions below
[2017-08-30 16:00] VITALS: O2SAT 91
--- NOTE | 2017-08-30 16:00 | NUR ---
A: Pt came back to room s/p colonoscopy, alert and oriented, VSS, needs attended,on L AC on NS at 75ml. Will continue monitoring.
--- NOTE | 2017-08-30 16:37 | Family Medicine Progress Note ---
Progress Note Date of Service Aug 30, 2017. Subjective Pt evaluation today including: conversation w/ patient, physical exam, chart review, lab review, conversation w/ enrollment consultant, review of inpatient medication list Pain: none Voiding: no voiding problems Patient was unhappy this afternoon that he had to wait so long for his colonoscopy After talking to him for a while he seemed more content and we were able to get him down in a timely manner I saw him after the colonoscopy and the patient was doing well and was happy to hear of the results He has had no further bleeding after the colonoscopy Constitutional: No fever, No chills, No sweats Respiratory: No cough, No sputum, No shortness of breath Cardiovascular: No chest pain, No palpitations Abdomen: No pain, No nausea, No vomiting, No diarrhea, No GI bleeding Male : No dysuria, No urinary frequency Heme: No abnormal bleeding/bruising Medications Current Inpatient Medications Medications (Trade) Dose Ordered Sig/Jana Route Start Time Stop Time Status Last Admin Dose Admin Acetaminophen (Tylenol Tab) 650 mg Q4H PRN PO 08/29/17 01:15 09/28/17 01:14 Al Hydrox/Mg Hydrox/Simethicone (Maalox Max Susp) 15 ml Q4H PRN PO 08/29/17 01:15 09/28/17 01:14 Magnesium Hydroxide (Milk Of Magnesia Susp) 30 ml Q6H PRN PO 08/29/17 01:15 09/28/17 01:14 Ondansetron HCl (Zofran Inj) 4 mg Q6H PRN IV 08/29/17 01:15 09/28/17 01:14 Digoxin (Lanoxin Tab) 0.125 mg DAILY@1600 PO 08/29/17 16:00 09/28/17 15:59 08/29/17 16:02 0.125 MG Montelukast Sodium (Singulair Tab) 10 mg QPM PO 08/29/17 21:00 09/28/17 20:59 Nitroglycerin (Nitrostat Tab) 0.4 mg PRN UT 08/29/17 01:15 09/28/17 01:14 Calcium/Vitamin D (Caltrate Plus Tab) 1 tab DAILY PO 08/29/17 08:00 09/28/17 08:59 Folic Acid (Folvite Tab) 800 mcg DAILY PO 08/29/17 08:00 09/28/17 08:59 Metoprolol Succinate (Toprol Xl Tab) 100 mg BID PO 08/29/17 08:00 09/28/17 08:59 08/29/17 20:25 100 MG Insulin Aspart (novoLOG ASPART) SLIDING SCALE G... ACHS SC 08/29/17 06:30 09/28/17 06:59 Pantoprazole Sodium 40 mg/ Syringe 10 ml @ 5 mls/min DAILY@ IV 08/29/17 09:00 09/28/17 08:59 08/30/17 08:14 5 MLS/MIN Sodium Chloride 1,000 ml @ 75 mls/hr [id number] IV 08/29/17 02:30 09/28/17 02:29 08/30/17 13:15 75 MLS/HR Objective Vital Signs Date Time Temp Pulse Resp B/P (MAP) Pulse Ox O2 Delivery O2 Flow Rate FiO2 08/30/17 15:43 75 20 151/71 (97) 94 Room Air 08/30/17 15:28 80 20 132/52 (78) 95 Room Air 08/30/17 14:04 37.2 60 20 172/69 (103) 97 Room Air 08/30/17 11:12 36.7 66 20 157/70 (99) 96 Room Air 08/30/17 08:00 Nasal Cannula 2.0 08/30/17 04:20 36.6 86 20 135/68 (90) 92 Room Air 08/30/17 00:00 Nasal Cannula 2.0 08/29/17 23:32 36.3 55 20 185/73 (110) 95 Room Air 08/29/17 20:00 Room Air 08/29/17 19:24 36.7 60 18 153/62 (92) 94 Room Air 08/29/17 16:54 36.7 56 18 157/68 (97) Physical Exam General Appearance: WD/WN, no apparent distress ENT: hearing grossly normal, pharynx normal Neck: supple, no JVD, no carotid bruits, trachea midline Respiratory/Chest: lungs clear, no respiratory distress, no accessory muscle use Cardiovascular: regular rate, rhythm, no JVD, no murmur Abdomen: normal bowel sounds, non tender, soft Extremities: non-tender, no pedal edema, no calf tenderness, normal capillary refill Neurologic/Psychiatric: alert, normal mood/affect Skin: normal color, warm/dry, no rash Laboratory Results Results Past 24 Hours Test 08/29/17 16:50 08/29/17 17:31 08/29/17 20:33 08/30/17 07:31 Range/Units Bedside Glucose 121 132 70-99 mg/dl White Blood Count 7.46 4.8-10.8 K/uL Red Blood Count 3.16 4.7-6.1 M/uL Hemoglobin 10.4 9.4 14.0-18.0 g/dL Hematocrit 30.9 28.4 42-52 % Mean Corpuscular Volume 97.8 80-100 fL Mean Corpuscular Hemoglobin 32.9 25-34 pg Mean Corpuscular Hemoglobin Concent 33.7 32-36 g/dl Platelet Count 108 130-400 K/uL Mean Platelet Volume 11.5 7.4-10.4 fL Neutrophils (%) (Auto) 9.9 % Lymphocytes (%) (Auto) 79.9 % Monocytes (%) (Auto) 9.2 % Eosinophils (%) (Auto) 0.4 % Basophils (%) (Auto) 0.3 % Neutrophils # (Auto) 0.74 1.4-6.5 K/uL Lymphocytes # (Auto) 5.96 1.2-3.4 K/uL Monocytes # (Auto) 0.69 0.11-0.59 K/uL Eosinophils # (Auto) 0.03 0-0.5 K/uL Basophils # (Auto) 0.02 0-0.2 K/uL RDW Standard Deviation 71.7 36.4-46.3 fL RDW Coefficient of Variation 21.9 11.5-14.5 % Immature Granulocyte % (Auto) 0.3 % Immature Granulocyte # (Auto) 0.02 0.00-0.02 K/uL Nucleated RBC Absolute Count (auto) 0.07 0-0 K/uL Nucleated Red Blood Cells % 1.0 % Polychromasia 1+ Anisocytosis PRESENT Spherocytes 2+ Test 08/30/17 08:08 08/30/17 11:19 Range/Units Bedside Glucose 113 126 70-99 mg/dl Assessment and Plan This is an 87 y/o who presents with worsening fatigue/weakness secondary to anemia Patient went for his colonoscopy this afternoon which showed multiple moderate sized angioectasia's in the rectum. These were ablated. The patient will stay overnight to monitor for further bleeding and will have his hgb rechecked tomorrow morning. Patient is to have his eliquis restarted in 2 days. Anemia 2/2 GI bleed + lymphoma (pancytopenia) - Patient given 3 units of PRBC and Hgb up to 9.4 - GI Consult - Will stop the PPI IV as patient found to have lower GI bleeding source - Hold Eliquis for now and can restart in two days - Neutropenic precautions - Iron studies/b12/folate done in january and normal. - Colonoscopy in 2011 showed radiation proctitis and diverticulosis - Repeat colonoscopy today showed angioectasias which were ablated PAF w/ sick sinus s/p Pacemaker, CAD s/p CABG, HTN - Continue Digoxin and metoprolol - Hold Eliquis and restart in two days Hypercholesterolemia - Atorvastatin was recently discontinued on a temporary basis due to musculoskeletal complaints DM 2 - Hold Glipizide and Actos - ISS - Accucheks - A1c in January was 5.0 CKD stage III - GFR 47, creatine 1.34 - continue to monitor h/o of Prostate ca - in 1998 and in remission DVT proph Chemical contraindicated in light of rectal bleeding SCD, LAXMI Code: DNR Resident Physician Supervision Note: I was present with PGY2 Dr. Marcelino Oneil during the history and exam. I discussed the case with the resident and agree with the findings and plan as documented in the note. Any exceptions or clarifications are listed here: none. Pt w/o abd pain or BRBPR. Completed colonoscopy today w/o incident. Found to have proctopathy with multiple areas of angioectasias ablated. 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 fib - holding anticoagulation; if H/H stable next 48 hours can resume then neutropenia - 2nd to lymphoma - neutropenic precautions anticipate d/c home in AM Documented By: Callum Berger MD Continued [facility] stay due to: other Discharge planning: home
[2017-08-30 16:40] VITALS: BP 163/70; PULSE 90; TEMP 36.7; O2SAT 90
[2017-08-30] MEDS: DIGOXIN 0.125 MG TAB PO SCH (16:40)
[2017-08-30 19:09] VITALS: BP 152/68; PULSE 73; TEMP 37; O2SAT 90
[2017-08-30] MEDS: MONTELUKAST SOD 10 MG TAB PO SCH (20:20)
--- NOTE | 2017-08-30 20:21 | NUR ---
A/ID: Pt admitted d/t anemia, weakness, s/p colonoscopy, alert and orientedx4,denies pain or bleeding, with ongoing IVF NS at 75ml/hr, on regular diet, well tolerated, Lungs are clear at RA, +BS, soft, non distended, non tender abdomen,Independent/Supervision in the room, +PP, BLE trace edema, voids in the toilet,VSS, needs attended,D/c uncertain at this time. Will continue monitoring.
[2017-08-31] VITALS (7 sets, daily range): BP systolic 120–167; BP diastolic 59–70; PULSE 63–91; TEMP 36.4–37.2; O2SAT 91–97
[2017-08-31] MEDS: SODIUM CHLORIDE 0.9% 1000ML 1,000 ML IV SCH (03:33)
[2017-08-31] MEDS: INSULIN ASPART 100 UNITS/ML 3 ML PEN SC SCH ×2 (06:30→11:00)
[2017-08-31] MEDS ORDERED: APIX1TAB3 PO (07:07)
--- NOTE | 2017-08-31 07:11 | Discharge Instructions ---
Discharge Instructions Date of Service Aug 31, 2017. Admission Reason for Admission: Anemia, Weakness Discharge Discharge Diagnosis / Problem: Colonic bleeding Discharge Goals Goal(s): Improve disease control Activity Recommendations Activity Limitations: per Instructions/Follow-up section . Instructions / Follow-Up Instructions / Follow-Up You were admitted to evaluate the cause of your bleeding. On colonoscopy, it was discovered that you had colonic angioectasias, which were cauterized. Resume your ELIQUIS on 09/01/2017, two days after the colonoscopy. None of your other home medications have changed. If you ever notice further bleeding or weakness, please return to the ED or get in touch with Dr. Hensley's office to arrange a colonoscopy again, as that could be the cause of your symptoms. You also received 3 units of blood during your stay. It is important to ensure any future provider that you received blood transfusions in the past in case you ever need one again. Follow up with your Oncologist, Dr. Olivares, as well as Dr. Hampton, your PCP within a week. Follow up at [facility] as well. If you notice any further weakness, chest pain, shortness of breath, fevers, abdominal pain, or other new or concerning symptoms please return to the ED. Current Hospital Diet Patient's current hospital diet: Regular Diet Discharge Diet Recommended Diet: Regular Diet, AHA Diet (Heart Healthy) Procedures Procedures Performed: COLONOSCOPY 08/30/17 2 step 08/31/17 - pt should wear 2L with ambulation Pending Studies Studies pending at discharge: no Laboratory Results Hemoglobin A1c Test 08/09/17 07:20 Range/Units Estimated Average Glucose 97 mg/dl Hemoglobin A1c 5.0 4.5-5.6 % Lipid Panel Test 08/09/17 07:20 Range/Units Triglycerides Level 279 H 0-150 mg/dl Cholesterol Level 128 0-200 mg/dl HDL Cholesterol 27 mg/dl Cholesterol/HDL Ratio 4.7 LDL Cholesterol, Calculated 45 mg/dl Medical Emergencies . Who to Call and When: Medical Emergencies: If at any time you feel your situation is an emergency, please call 911 immediately. . Non-Emergent Contact Non-Emergency issues call your: Primary Care Provider, Mathematics Department Chair . . "Provider Documentation" section prepared by Helene Ziegler. . VTE Core Measure Inpt VTE Proph given/why not?: Contraindicated
[2017-08-31 07:47] LABS: HEMATOCRIT 30.8 % (42-52); HEMOGLOBIN 10.2 g/dL (14.0-18.0); MEAN CELL VOLUME 97.5 fL (80-100); MEAN CORPUSCULAR HEMOGLOBIN 32.3 pg (25-34); MEAN CORPUSCULAR HGB CONC 33.1 g/dl (32-36); NUCLEATED RED BLOOD CELL ABS 0.06 K/uL (0-0); PLATELET COUNT 102 K/uL (130-400); RED CELL DISTRIBUTION WIDTH CV 21.6 % (11.5-14.5); RED CELL DISTRIBUTION WIDTH SD 73.8 fL (36.4-46.3); WHITE BLOOD COUNT 11.12 K/uL (4.8-10.8)
[2017-08-31] MEDS: FoLIC ACID TAB 400 MCG TAB PO SCH (08:00)
[2017-08-31] MEDS: CALCIUM 600MG + VIT D 400 IU TAB PO SCH (08:00)
[2017-08-31] MEDS: METOPROLOL SUCC 50MG EXT REL TAB PO SCH (08:14)
[2017-08-31] MEDS: PANTOprazole INJ 40 MG in SYRINGE 0 ML IV SCH (08:14)
[2017-08-31 08:42] LABS: BASO % 0.2 %; BASO ABS # 0.02 K/uL (0-0.2); EOS % 0.2 %; EOS ABS # 0.02 K/uL (0-0.5); IG# 0.03 K/uL (0.00-0.02); LYMPH % 62.9 %; LYMPH ABS # 6.99 K/uL (1.2-3.4); NEUT % 27.4 %; NEUT ABS # 3.06 K/uL (1.4-6.5)
[2017-08-31] MEDS ORDERED: FERR50TA3 PO (11:07)
--- NOTE | 2017-08-31 11:35 | NUR ---
A Note; Pt ambulated in hallway on room air, without assistive devices and continuous pulse ox monitoring; Pt ambulated large loop of 4 [address] hallway 92% at rest, averaged 87% with ambulation 2 occasions O2 saturation dipped down to 83% and rebounded to 87%; notified of results
--- NOTE | 2017-08-31 13:10 | DIAGNOSTIC IMAGING REPORT ---
CHEST 2 VIEWS ROUTINE CLINICAL HISTORY: 87 years-old Male presenting with hypoxia . TECHNIQUE: PA and lateral views of the chest were obtained. COMPARISON: 08/28/2017. FINDINGS: Left subclavian pacer with leads to the right atrium and right ventricular apex unchanged. Sternotomy wires and mediastinal surgical clips again noted. Atherosclerosis of aortic arch. Cardiac silhouette normal in size. Minimal left basilar opacity and blunting of the left costophrenic angle. Trace bilateral pleural effusions. No pneumothorax. Degenerative changes of the thoracic spine. Upper abdomen normal. IMPRESSION: 1. Left basilar atelectasis suspected. Trace bilateral pleural effusions. No jayy pulmonary edema. Electronically signed by: Alexander James M.D. 08/31/2017 1:09 PM Dictated Date/Time: 08/31/2017 1:08 PM
--- NOTE | 2017-08-31 13:18 | NUR ---
A Note; Pt returned from x-ray and placed on 2LNC O2 sat 94%
--- NOTE | 2017-08-31 14:29 | NUR ---
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 Hampton's office w/ Mary Galeas PA-C on SundaySeptember 07 at 4:00 pm. This info was added to the DC instructions. I call Dr. Olivares's office to arrange an appt - had to leave a message w/ pt info and my contact info. Addendum: 09/05/17 at 1446 by Cindy Rivas SERV Confirmed that pt has an appt in place w/ Dr. Olivares on September 21 at 9:10 am.
--- NOTE | 2017-08-31 16:20 | NUR ---
Talked with Dr. Hampton about patient earlier today. Patient for discharge today. Talked with nursing at 1600. Patient did not pass two step. Needs oxygen. Referral sent to [facility] for home oxygen setup with portable delivered to patient's room. Need script for home oxygen. Plan discharge to home today. Addendum: 08/31/17 at 1720 by Stephanie Art SERV Script faxed to [facility]. Talked with [facility]. Script received.
--- NOTE | 2017-08-31 16:27 | PROGRESS NOTE ---
DATE: 08/31/2017 SUBJECTIVE: The patient was treated yesterday for radiation proctitis with argon plasma data warehouse consultant by Dr. Hensley. The bleeding has subsided and his blood count has remained stable at 10.2 after [address] Hensley recommended he could resume the Eliquis in 2 days following the procedure, which would be tomorrow. The patient does have an appointment to go to [place] to evaluate the lymphoma that may also be contributing to his anemia. I advised the patient that if he has further bleeding rectally, to contact Dr. Hensley because he may need further treatments in the future.
--- NOTE | 2017-08-31 16:38 | Discharge Summary ---
Discharge Summary Date of Service Aug 31, 2017. Discharge Summary Admission Date: Aug 29, 2017 at 01:08 Discharge Date: Aug 31, 2017 Discharge Disposition: Home Principal Diagnosis: Anemia, due to acute blood loss anemia from lower GI bleeding Problems/Secondary Diagnoses: Lymphoma a. fib T2DM CKD stage 3 prostate cancer hypoxia with need for home o2, 2 liters w/ ambulation only Immunizations: Have You Had Influenza Vaccine: Yes Influenza Vaccine Date: Jul 20, 2010 History of Tetanus Vaccine?: Yes History of Pneumococcal: No Pneumococcal Date: Jun 13, 2006 History of Hepatitis B Vaccine: No Procedures: Colonoscopy - Dr. Isaac Hensley - Multiple colonic angioectasias. Treated with argon plasma coagulation (APC). - Diverticulosis in the sigmoid colon and in the descending colon. - The examination was otherwise normal. - The examined portion of the ileum was normal. - The examination was otherwise normal. - No specimens collected. PRBC Transfusion x 3 units oxygen 2-step test showing need for home O2, 2 liters with ambulation only Consultations: Dr Bah, GI Medication Reconciliation New Medications: Ferrous Sulfate (Iron (Ferrous Sulfate)) 50 Mg Tab 1 TAB PO BID for 30 Days, #60 TAB Changed Medications: Apixaban (Eliquis) 5 Mg Tab 5 MG PO AMPM for 30 Days, #60 TAB (Medication details modified) Restart on 09/01/2017 Continued Medications: Calcium W/ Vitamin D (Calcium) 1 Tab Tab 1 TAB PO DAILY Coenzyme Q10 (Ubidecarenone) (Coenzyme Q-10) 200 Mg Cap 200 MG PO DAILY Cyanocobalamin (Vitamin B-12) Unknown Strength Tab 1 TAB PO DAILY Digoxin (Digox) 125 Mcg Tab 0.125 MG PO DAILY Esomeprazole Magnesium (Nexium) 40 Mg Capcr 40 MG PO DAILY, CAP Folic Acid (Folic Acid) 800 Mcg Tab 800 MCG PO DAILY Glipizide (Glipizide Er) 5 Mg Tab 10 MG PO QAM Glipizide (Glipizide Er) 5 Mg Tab 5 MG PO QPM takes with evening meal Metoprolol Succinate (Metoprolol Succinate ER) 100 Mg Tabcr 100 MG PO BID Montelukast Sodium (Singulair) 10 Mg Tab 10 MG PO QPM TAKES WITH DINNER Multivitamin (Multivitamin) Tab 1 TAB PO DAILY Nitroglycerin (Nitrostat) 0.4 Mg Tab 0.4 MG UT PRN, BTL Pioglitazone (Actos) 15 Mg Tab 15 MG PO DAILY Ranitidine Hcl (Zantac) 300 Mg Tab 300 MG PO UD AT 20:30 EVERY EVENING [Neurvasia] () 1 DOSE PO DAILY "MEDICAL FOOD" Discharge Exam Review of Systems: Constitutional: + weakness (occasional), No fever, No chills, No sweats, No weight loss Eyes: No worsening of vision, No eye pain ENT: No hearing loss, No nasal symptoms Respiratory: + dyspnea on exertion, No cough, No sputum, No wheezing, No shortness of breath, No dyspnea at rest Cardiovascular: No chest pain, No orthopnea, No PND Abdomen: + GI bleeding (no further episodes), No pain, No nausea, No vomiting, No diarrhea, No constipation Musculoskeletal: No joint pain, No muscle pain Genitourinary - Male: No hematuria, No dysuria, No urinary frequency, No urinary urgency Neurologic: No memory loss, No paralysis, No weakness, No numbness/tingling , No balance problems Psychiatric: No depression symptoms, No anhedonism Endocrine: No fatigue Hematologic / Lymphatic: No abnormal bleeding/bruising, No clotting problems Integumentary: No rash, No itch Physical Exam: General Appearance: WD/WN, no apparent distress Eyes: normal inspection, PERRL, EOMI ENT: normal ENT inspection, hearing grossly normal, TMs normal Neck: supple, no JVD Respiratory/Chest: lungs clear, normal breath sounds, no respiratory distress Cardiovascular: regular rate, rhythm, no murmur, normal peripheral pulses Abdomen / GI: normal bowel sounds, non tender, soft Extremities: no calf tenderness, normal capillary refill, no pedal edema Neurologic/Psychiatric: alert, normal mood/affect, normal reflexes, oriented x 3 Skin: normal color, no rash Hospital Course HPI: This is an 87 y/o M with h/o of DM2, PAF s/p pacemaker, HTN, ckd III, prostate ca, 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 His cancer diagnosis is recent within the year and is currently undergoing work up for differentiation of the type of lymphoproliferative disorder. 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 He was using his son's pulse ox this week and noticed that his O2 was below 90. This morning however, his shortness of breath/weakness was intolerable. He does report a history of chronic intermittent rectal bleeding 2/2 radiation therapy for prostate ca several years ago. His last colonoscopy was in 2011 which revealed diverticulosis and evidence of radiation proctitis. There has been no change in his stools. Bright red bleeding happens every 3-4 days and fills the toilet bowl. In the ER, he was noted to have a hgb of 7.1 and transfusion was recommended, however the patient was unsure if this would interfere with the work up that is pending through [facility]. Supposedly he was to have blood work every week for the next 3-4 week and then subsequent admission at [facility] for further work up and BM biopsy. He wanted to verify with oncology that transfusion would be okay. HOSPITAL COURSE: The pt received 3 units of PRBC throughout his stay. He felt better overall. He had a colonoscopy showing colonic ectasias which were cauterized. He had a two- step prior to DC showing that he should wear 2L nasal cannula oxygen with ambulation. He was discharged home in good condition on 08/31/17 Anemia secondary to GI bleed & Lymphoma - Patient given 3 units of PRBC and Hgb up to 10 - Hold Eliquis for now and can restart in 2 day - Iron studies/b12/folate done in january and normal. - Colonoscopy in 2011 showed radiation proctitis and diverticulosis - Repeat colonoscopy today showed angioectasias which were ablated Chronic hypoxic respiratory failure - Unclear etiology - CXR was clear, weights have been stable, no edema on exam in lungs, abdomen, or legs. - 2 step showed pt should wear 2L O2 with ambulation Lymphoma - Unclear type, pt is following up with Dr Marshall dash and [facility] in 3 weeks PAF w/ sick sinus s/p Pacemaker, CAD s/p CABG, HTN - Continue Digoxin and metoprolol - Hold Eliquis and restart in two days Hypercholesterolemia - Atorvastatin was recently discontinued on a temporary basis due to musculoskeletal complaints DM 2 - Hold Glipizide and Actos - ISS - Accucheks - A1c in January was 5.0 CKD stage III - GFR 47, creatine 1.34 - Continue to monitor VTE: SCDs Code status: DNR Resident Physician Supervision Note: I was present with PGY3 Dr. Helene Ziegler during the discharge history and exam. I discussed the case with the resident and agree with the findings and plan as documented in the discharge summary. Any exceptions or clarifications are listed here: none. 87yo male with recently diagnosed lymphoma, work-up still in progress, along with chronic anticoagulation use for a. fib who presented with fatigue and dyspnea. He was found to have worsening anemia. He reported multiple episodes of BRBPR for several weeks prior to admission. Admission hemoglobin was 7.1. He was transfused a total of 3 units of PRBCs with discharge hemoglobin of 10.2. He was seen in consult by [facility] who recommended a colonoscopy in light of his rectal bleeding. He had a known history of radiation proctitis due to previous radiation for prostate cancer. Colonoscopy was completed showing multiple colonic angioectasias that were treated with argon coagulation. These angioectasias were due to prior radiation. At discharge the patient was advised to hold his eliquis for at least 48 hours prior to resuming such. He was also advised to take iron supplementation. A repeat CBC at time of hospital follow-up will be needed for stability purposes. Discharge exam - gen - NAD neck - no JVD heart - RRR, s1, s2 lungs - CTA b/l abd - soft, NT, ND, BS+ ext - no edema Prior to discharge the patient had a formal two-step oxygen test to assess for ambulatory oxygen. He indeed needed 2 liters of NC O2 with AMBULATION ONLY. The exact cause of his hypoxia with activity was uncertain as his lung exam was normal at discharge and his chest x-ray was also normal. His PCP was informed of the o2 requirement and he plans to perform outpatient work-up for this. Documented By: Callum Berger MD Total Time Spent: Greater than 30 minutes This includes examination of the patient, discharge planning, medication reconciliation, and communication with other providers. Discharge Instructions Please refer to the electronic Patient Visit Report (Discharge Instructions) for additional information. Follow-Up - With Dr Hampton in a week - With Dr Olivares in 1-2 weeks - As needed follow up with Dr Hensley Additional Copies To Callum Hampton M.D.; Isaac Hensley M.D. Resident Tracking Resident Involvement: Resident Care Provided Care Provided: [facility]
[2017-08-31] MEDS: DIGOXIN 0.125 MG TAB PO SCH (16:40)
--- NOTE | 2017-08-31 17:30 | NUR ---
A Note; Pt discharged home with O2 and belongings; Pt verbalizes understanding of medication and follow up appointments
[2018-02-06] MEDS ORDERED: APIX1TAB3 PO (22:58)
[2018-02-06] MEDS ORDERED: IRON INFUSION IV (23:01)
== END 2017-08-31 17:30 | disposition home or self-care (01) | DRG 378 ==
LOC: C.EDB 21:23 → C.4E 08-29 01:08 → ENRESERV 08-29 01:21
PROVIDERS: ADMIT Student in an Organized Health Care Education/Training Program; ATTEND Internal Medicine
PROC: 0W3P8ZZ Control Bleeding in Gastrointestinal Tract, Via Natural or Artificial Opening Endoscopic (ICD-10-PCS; principal; 2017-08-30 14:01)
DX: K55.21 Angiodysplasia of colon with hemorrhage (principal); D62 Acute posthemorrhagic anemia; J96.11 Chronic respiratory failure with hypoxia; C85.90 Non-Hodgkin lymphoma, unspecified, unspecified site; K62.7 Radiation proctitis; K57.30 Diverticulosis of large intestine without perforation or abscess without bleeding; I48.0 Paroxysmal atrial fibrillation; K21.9 Gastro-esophageal reflux disease without esophagitis; N18.3 Chronic kidney disease, stage 3 (moderate); I12.9 Hypertensive chronic kidney disease with stage 1 through stage 4 chronic kidney disease, or unspecified chronic kidney disease; E11.22 Type 2 diabetes mellitus with diabetic chronic kidney disease; I25.10 Atherosclerotic heart disease of native coronary artery without angina pectoris; E78.00 Pure hypercholesterolemia, unspecified; Z79.899 Other long term (current) drug therapy; Z95.0 Presence of cardiac pacemaker; Z95.1 Presence of aortocoronary bypass graft; Z87.891 Personal history of nicotine dependence; Z85.46 Personal history of malignant neoplasm of prostate; Z92.3 Personal history of irradiation; W90.8XXA Exposure to other nonionizing radiation, initial encounter

== ENCOUNTER 2017-09-18 07:01 | Emergency (ER) | payer OTHER ==
[~2017-09-18 07:01] MED LIST changes: -ATOR10TA82 PO; +CYAN100T PO; +FERR50TA3 PO
[2017-09-18 07:04] VITALS: TEMP 36.4
[2017-09-18 07:20] VITALS: O2SAT 98
--- NOTE | 2017-09-18 07:23 | EMERGENCY ROOM VISIT NOTE ---
History Report prepared by Destiny: Richard Rodriguez Under the Supervision of: Dr. Wei Park M.D. First contact with patient: 07:09 Chief Complaint: RESPIRATORY PROBLEMS Stated Complaint: HAVING TROUBLE BREATHING History of Present Illness The patient is an 87 year old white male with a past medical history CAD, diabetes, GERD, atrial fibrillation, hypertension, lymphoma, and prostate cancer who presents to the ED with a cc of worsening shortness of breath beginning several hours ago. Positive intermittent chest pain. Negative cough, hematochezia, or melena. The patient's symptoms began when he woke up from sleep this morning. The patient was seen in the hospital 2 weeks ago and discharged on 2.5 L of oxygen which he has been using at all times. He is on a blood thinner daily. He is not on a water pill for his chronic leg edema. Source of History: patient Onset: several hours ago Position: other (Respiratory System) Symptom Intensity: moderate Quality: other (Shortness of breath) Timing: worsening Associated Symptoms: + chest pain (intermittent), No cough, No melena, No hematochezia Review of Systems See HPI for pertinent positives and negatives. A total of ten systems were reviewed and were otherwise negative. Past Medical & Surgical Medical Problems: (1) Atrial fibrillation (2) Benign hypertension (3) coronary bypass surgery (4) Diabetes mellitus (5) GERD (gastroesophageal reflux disease) (6) Heart disease (7) Hiatal hernia (8) Implantation of cardiac pacemaker (9) Kidney disease (10) Neck pain on right side (11) Pacemaker (12) Weakness Family History No significant family history Social History Smoking Status: Never Smoker Smokeless Tobacco Use: No Alcohol Use: occasionally Drug Use: none Marital Status: single Housing Status: lives alone Occupation Status: retired Current/Historical Medications Scheduled Apixaban (Eliquis), 5 MG PO AMPM Calcium W/ Vitamin D (Calcium), 1 TAB PO DAILY Coenzyme Q10 (Ubidecarenone) (Coenzyme Q-10), 200 MG PO DAILY Cyanocobalamin (Vitamin B-12), 1 TAB PO DAILY Digoxin (Digox), 0.125 MG PO DAILY Esomeprazole Magnesium (Nexium), 40 MG PO DAILY Ferrous Sulfate (Iron (Ferrous Sulfate)), 1 TAB PO BID Folic Acid (Folic Acid), 800 MCG PO DAILY Glipizide (Glipizide Er), 10 MG PO QAM Glipizide (Glipizide Er), 5 MG PO QPM Metoprolol Succinate (Metoprolol Succinate ER), 100 MG PO BID Montelukast Sodium (Singulair), 10 MG PO QPM Multivitamin (Multivitamin), 1 TAB PO DAILY Nitroglycerin (Nitrostat), 0.4 MG UT PRN Pioglitazone (Actos), 15 MG PO DAILY Ranitidine Hcl (Zantac), 300 MG PO UD [Neurvasia], 1 DOSE PO DAILY Allergies Coded Allergies: Antihistamines, Diphenhydramine-typ (Verified Adverse Reaction, Intermediate, headaches, 09/18/17) Physical Exam Vital Signs Date Time Temp Pulse Resp B/P (MAP) Pulse Ox O2 Delivery O2 Flow Rate FiO2 09/18/17 10:53 62 18 156/71 100 09/18/17 08:37 58 16 143/59 100 Nasal Cannula 2.0 09/18/17 07:20 98 Nasal Cannula 2.0 09/18/17 07:19 98 Nasal Cannula 2.0 09/18/17 07:18 62 09/18/17 07:16 92 Room Air 09/18/17 07:04 36.4 72 18 118/54 95 Room Air Physical Exam GENERAL: Awake, alert, well-appearing, NAD HENT: Normocephalic, atraumatic. EYES: Normal conjunctiva. Sclera non-icteric. NECK: Supple. No nuchal rigidity. FROM. RESPIRATORY: CTAB, no rhonchi, wheezing, crackles CARDIAC: RRR, no MRG ABDOMEN: Soft, NTND, BS+ MSK: No chest wall TTP, 1-2+ pretibial edema. NEURO: GCS 15, CN 2-12 intact, moves all 4s on command SKIN: No rash or jaundice noted. Medical Decision & Procedures ER Provider Diagnostic Interpretation: Radiology results as stated below per my review and radiologist interpretation: CHEST ONE VIEW PORTABLE CLINICAL HISTORY: EVALUATE RESPIRATORY DISTRESS.DYSPNEA COMPARISON STUDY: Radiograph August 31, 2017. FINDINGS: A dual lead left subclavian pacemaker, median sternotomy wires and mediastinal surgical clips are noted. There is no pneumothorax. Cardiomegaly is noted. A hiatal hernia is present. There is no evidence for overt edema. Mild left basilar opacity favors atelectasis. IMPRESSION: 1. Mild bibasilar opacities which favor atelectasis. 2. Cardiomegaly without evidence of pulmonary edema. Electronically signed by: Yuriy Dent M.D. 09/18/2017 7:58 AM Dictated Date/Time: 09/18/2017 7:52 AM Laboratory Results 09/18/17 07:40 Red Blood Count 2.73, Mean Corpuscular Volume 98.9, Mean Corpuscular Hemoglobin 33.0, Mean Corpuscular Hemoglobin Concent 33.3, Mean Platelet Volume 11.2, Neutrophils (%) (Auto) 13.3, Lymphocytes (%) (Auto) 74.9, Monocytes (%) (Auto) 10.4, Eosinophils (%) (Auto) 0.8, Basophils (%) (Auto) 0.3, Neutrophils # (Auto ) 1.01, Lymphocytes # (Auto) 5.66, Monocytes # (Auto) 0.79, Eosinophils # (Auto ) 0.06, Basophils # (Auto) 0.02 09/18/17 07:40 Test 09/18/17 07:40 09/18/17 09:40 White Blood Count 7.56 K/uL (4.8-10.8) Red Blood Count 2.73 M/uL (4.7-6.1) Hemoglobin 9.0 g/dL (14.0-18.0) Hematocrit 27.0 % (42-52) Mean Corpuscular Volume 98.9 fL (80-100) Mean Corpuscular Hemoglobin 33.0 pg (25-34) Mean Corpuscular Hemoglobin Concent 33.3 g/dl (32-36) Platelet Count 156 K/uL (130-400) Mean Platelet Volume 11.2 fL (7.4-10.4) Neutrophils (%) (Auto) 13.3 % Lymphocytes (%) (Auto) 74.9 % Monocytes (%) (Auto) 10.4 % Eosinophils (%) (Auto) 0.8 % Basophils (%) (Auto) 0.3 % Neutrophils # (Auto) 1.01 K/uL (1.4-6.5) Lymphocytes # (Auto) 5.66 K/uL (1.2-3.4) Monocytes # (Auto) 0.79 K/uL (0.11-0.59) Eosinophils # (Auto) 0.06 K/uL (0-0.5) Basophils # (Auto) 0.02 K/uL (0-0.2) RDW Standard Deviation 83.5 fL (36.4-46.3) RDW Coefficient of Variation 24.0 % (11.5-14.5) Immature Granulocyte % (Auto) 0.3 % Immature Granulocyte # (Auto) 0.02 K/uL (0.00-0.02) Large Platelets 1+ Polychromasia 1+ Anisocytosis PRESENT Spherocytes 1+ Prothrombin Time 11.4 SECONDS (9.0-12.0) Prothromb Time International Ratio 1.1 (0.9-1.1) Activated Partial Thromboplast Time 23.3 SECONDS (21.0-31.0) Partial Thromboplastin Ratio 0.9 Anion Gap 4.0 mmol/L (3-11) Estimated GFR () 52.5 Estimated GFR (Non- 45.3 BUN/Creatinine Ratio 24.7 (10-20) Calcium Level 8.6 mg/dl (8.5-10.1) Total Bilirubin 0.7 mg/dl (0.2-1) Aspartate Amino Transf (AST/SGOT) 28 U/L (15-37) Alanine Aminotransferase (ALT/SGPT) 30 U/L (12-78) Alkaline Phosphatase 73 U/L (45-117) Troponin I < 0.015 ng/ml (0-0.045) Pro-B-Type Natriuretic Peptide 395 pg/ml (0-1800) Total Protein 6.2 gm/dl (6.4-8.2) Albumin 3.1 gm/dl (3.4-5.0) Globulin 3.1 gm/dl (2.5-4.0) Albumin/Globulin Ratio 1.0 (0.9-2) Digoxin Level 0.8 ng/ml (0.8-2.0) Urine Color YELLOW Urine Appearance CLEAR (CLEAR) Urine pH 7.0 (4.5-7.5) Urine Specific [place] 1.021 (1.000-1.030) Urine Protein NEG (NEG) Urine Glucose (UA) NEG (NEG) Urine Ketones NEG (NEG) Urine Occult Blood NEG (NEG) Urine Nitrite NEG (NEG) Urine Bilirubin NEG (NEG) Urine Urobilinogen NEG (NEG) Urine Leukocyte Esterase NEG (NEG) Laboratory results reviewed by me ECG Indication: SOB/dyspnea Rate (beats per minute): 62 Rhythm: other (Atrial paced) Findings: RBBB, other (Wide QRS, no other STS changes or TWI) Comparison ECG Date: 28 Aug 2017 Change: no significant change ED Course 0709: The patient was evaluated in room A10. A complete history and physical exam was performed. 0953: I spoke with Dr. Hampton of Nephrology at this time. We discussed the patient's case. They are agreeable with the plan. They recommend the patient following up in their office in the near future. Case management will figure out when he will follow up with [place]. 1050: I reevaluated the patient. Discussed results and discharge instructions: He verbalized understanding and agreement. The patient is ready for discharge. Medical Decision The patient is an 87 year old white male with a past medical history CAD, diabetes, GERD, atrial fibrillation, hypertension, lymphoma, and prostate cancer who presents to the ED with a cc of worsening shortness of breath beginning several hours ago. Positive intermittent chest pain. Negative cough, hematochezia, or melena. Differential diagnosis: Etiologies such as infections, reactive airway disease, pneumonia, pneumothorax , COPD, CHF, cardiac ischemia, pulmonary embolism, musculoskeletal, gastrointestinal, as well as others were entertained. Patient was seen and evaluated the bedside. Patient does have a known history of some sort of blood disorder in addition to CAD. Patient has complaints of shortness of breath. Of note patient did have a recent admission or shortness of breath while the etiology was uncertain the patient was supposedly placed on 2 L at home O2. Patient does not have a mobile oxygen device and this is not been using it when he as well as home. He states that this is when he gets short of breath. Patient denies any chest pain. Patient does have some trace lower extremity edema which she states is chronic. He has not noted any weight gain. Patient denies infectious symptoms. Patient denies any bleeding from the rectum or melenic or dark stools. Patient did have blood work completed along with EKG, troponin, chest x-ray. Of note the patient did have a recent colonoscopy where he had several angioectasias that were cauterized w/ Argon. Patient on exam is otherwise well-appearing. Patient's chest x-ray is fairly clear. Patient's EKG is unchanged from priors. Patient does have slight changes hemoglobin from 9.8 -> 9. I did discuss patient with his primary care physician who stated that he supposed follow-up in [place]. He does have a follow-up appointment this Sunday however the patient relates seem sooner he may call the clinic. Given the patient has had a recent workup for similar shortness of breath may worsen issues with oxygen this may be the most likely diagnosis was made be on chronic oxygen. Patient was told that he should continue to use his spirometer and make sure he follows up in [place]. I did discuss patient's case with the showcase maker who helped with at-home oxygen help as well as his oncology follow-up at [place]. Patient was given strict follow-up, discharge, and return precautions. All questions were answered. Patient was deemed suitable for outpatient follow-up at this time. Patient agreed with the plan of care and was safely discharged home. Medication Reconcilliation Current Medication List: was personally reviewed by me Blood Pressure Screening Patient's blood pressure: Elevated blood pressure Blood pressure disposition: Elevated BP felt to be situational Consults Time Called: [phone] Consulting Physician: Dr. Hampton - Nephrology Returned Call: [phone] We discussed the patient's case. They are agreeable with the plan. They recommend the patient following up in their office in the near future. Impression Primary Impression: SOB (shortness of breath) Additional Impression: Anemia Scribe Attestation The scribe's documentation has been prepared under my direction and personally reviewed by me in its entirety. I confirm that the note above accurately reflects all work, treatment, procedures, and medical decision making performed by me. Departure Information Dispostion Home / Self-Care Referrals Callum Hampton M.D. (PCP) Forms HOME CARE DOCUMENTATION FORM, IMPORTANT VISIT INFORMATION, WORK / SCHOOL INSTRUCTIONS Patient Instructions ED Dyspnea Shortness of Breath, My [facility], Oxygen Home Dc, Oxygen Travel Additional Instructions Please return to the emergency department if you have worsening or recurrent symptoms not amenable to at-home treatment. Please call for a follow-up appointment with her primary care physician. Please take your medications as prescribed. If you have other concerns and/or complaints please feel free to also call your primary care physician's office or return the ED for further evaluation, management, and treatment. Please ensure that you use her oxygen at home. Please follow-up with Dr. Hampton on Sunday. If you do need to be seen sooner please call his clinic. Take your medications as prescribed. You have been examined and treated today on an emergency basis only. This is not a substitute for, or an effort to provide, complete comprehensive medical care. It is impossible to recognize and treat all injuries or illnesses in a single emergency department visit. It is therefore important that you follow up closely with [facility], your PCP, and/or your specialist(s). Call as soon as possible for an appointment. Thank you for your time and consideration. I look forward to speaking with you again soon. Please don't hesitate to call us if you have any questions. Problem Qualifiers Additional Impression: Anemia Anemia type: unspecified type Qualified Codes: D64.9 - Anemia, unspecified
--- NOTE | 2017-09-18 07:59 | DIAGNOSTIC IMAGING REPORT ---
CHEST ONE VIEW PORTABLE CLINICAL HISTORY: EVALUATE RESPIRATORY DISTRESS.DYSPNEA COMPARISON STUDY: Radiograph August 31, 2017. FINDINGS: A dual lead left subclavian pacemaker, median sternotomy wires and mediastinal surgical clips are noted. There is no pneumothorax. Cardiomegaly is noted. A hiatal hernia is present. There is no evidence for overt edema. Mild left basilar opacity favors atelectasis. IMPRESSION: 1. Mild bibasilar opacities which favor atelectasis. 2. Cardiomegaly without evidence of pulmonary edema. Electronically signed by: Yuriy Dent M.D. 09/18/2017 7:58 AM Dictated Date/Time: 09/18/2017 7:52 AM
[2017-09-18 08:12] LABS: INR 1.1 (0.9-1.1); PTT PATIENT 23.3 SECONDS (21.0-31.0)
[2017-09-18 08:30] LABS: MEAN CELL VOLUME 98.9 fL (80-100); MEAN CORPUSCULAR HGB CONC 33.3 g/dl (32-36); MEAN PLATELET VOLUME 11.2 fL (7.4-10.4); PLATELET COUNT 156 K/uL (130-400); RED CELL DISTRIBUTION WIDTH SD 83.5 fL (36.4-46.3); WHITE BLOOD COUNT 7.56 K/uL (4.8-10.8)
[2017-09-18 08:43] LABS: ALBUMIN 3.1 gm/dl (3.4-5.0); ALT/SGPT 30 U/L (12-78); BLOOD UREA NITROGEN 34 mg/dl (7-18); CALCIUM 8.6 mg/dl (8.5-10.1); CARBON DIOXIDE 28 mmol/L (21-32); CREATININE 1.38 mg/dl (0.60-1.40); GLUCOSE 180 mg/dl (70-99); POTASSIUM 4.1 mmol/L (3.5-5.1); SODIUM 139 mmol/L (136-145)
[2017-09-18 08:48] LABS: ALKALINE PHOSPHATASE 73 U/L (45-117); AST/SGOT 28 U/L (15-37); TOTAL PROTEIN 6.2 gm/dl (6.4-8.2)
[2017-09-18 09:10] LABS: BASO % 0.3 %; BASO ABS # 0.02 K/uL (0-0.2); EOS % 0.8 %; EOS ABS # 0.06 K/uL (0-0.5); IG# 0.02 K/uL (0.00-0.02); LYMPH % 74.9 %; LYMPH ABS # 5.66 K/uL (1.2-3.4); MONO % 10.4 %; MONO ABS # 0.79 K/uL (0.11-0.59); NEUT % 13.3 %; NEUT ABS # 1.01 K/uL (1.4-6.5)
[2017-09-18 10:53] VITALS: BP 156/71; PULSE 62; O2SAT 100
== END 2017-09-18 10:54 | disposition home or self-care (01) ==
LOC: C.EDB 07:02 → C.EDA 10:54
DX: R06.02 Shortness of breath (principal); D64.9 Anemia, unspecified; I48.91 Unspecified atrial fibrillation; I12.9 Hypertensive chronic kidney disease with stage 1 through stage 4 chronic kidney disease, or unspecified chronic kidney disease; N18.9 Chronic kidney disease, unspecified; E11.9 Type 2 diabetes mellitus without complications; K21.9 Gastro-esophageal reflux disease without esophagitis; I51.9 Heart disease, unspecified; Z95.1 Presence of aortocoronary bypass graft; Z95.0 Presence of cardiac pacemaker; Z79.899 Other long term (current) drug therapy; Z88.8 Allergy status to other drugs, medicaments and biological substances

== ENCOUNTER → 2017-10-22 | Outpatient (CLI) | payer OTHER ==
[~2017-10-22] MED LIST changes: -[UNRECOGNIZED DRUG - OTHER] PO
--- NOTE | 2017-10-22 16:17 | DIAGNOSTIC IMAGING REPORT ---
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 A dose lowering technique was utilized adhering to the principles of ALARA. COMPARISON: None. FINDINGS: Minimal fibrotic change lateral aspect left pulmonary apex. Minimal scattered atelectatic change bilaterally. Minimal dependent basilar atelectatic change with trace amount of pleural reaction which may be chronic. Small fixed hiatal hernia. No focal infiltrate. Prior median sternotomy. Moderate atherosclerotic change thoracic aorta. No significant hilar or mediastinal adenopathy moderate degenerative change of the osseous structures of the thoracic spine. No true lytic or blastic process. IMPRESSION: Minimal scattered atelectasis. Otherwise negative CT of the chest. Findings of prior median sternotomy and cardiac pacemaker placement. Small hiatal hernia. The above report was generated using voice recognition software. It may contain grammatical, syntax or spelling errors. Electronically signed by: Eber Tucker M.D. 10/22/2017 4:16 PM Dictated Date/Time: 10/22/2017 4:12 PM
--- NOTE | 2017-10-22 16:22 | DIAGNOSTIC IMAGING REPORT ---
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 A dose lowering technique was utilized adhering to the principles of ALARA. COMPARISON STUDY: 02/14/2013 FINDINGS: Minimal atelectasis in pleural reactive change at lung bases. Small hiatal hernia. Liver spleen and pancreas are uniform within limitations of nonenhanced scan. Moderate fatty replacement of the pancreas. Several small gallstones. No evidence for gallbladder distention. Kidneys negative for hydronephrosis or calcification. The bowel pattern is considered nonobstructive. No significant abdominal or retroperitoneal adenopathy. IMPRESSION: 1. Small hiatal hernia. 2. Several small gallstones. 3. Otherwise negative study of the abdomen. The above report was generated using voice recognition software. It may contain grammatical, syntax or spelling errors. Electronically signed by: Eber Tucker M.D. 10/22/2017 4:21 PM Dictated Date/Time: 10/22/2017 4:18 PM
== END | disposition home or self-care (01) ==
LOC: C.CTS 15:42
PROVIDERS: ATTEND Internal Medicine
DX: D47.9 Neoplasm of uncertain behavior of lymphoid, hematopoietic and related tissue, unspecified (principal)

== ENCOUNTER 2017-10-28 23:33 | Emergency (ER) | payer OTHER ==
[~2017-10-28] VITALS: Ht 175.3 cm; Wt 90.1 kg
[2017-10-28 23:42] VITALS: TEMP 36.7; Ht 175.3 cm; Wt 90.1 kg
--- NOTE | 2017-10-29 01:01 | EMERGENCY ROOM VISIT NOTE ---
History Report prepared by Destiny: Debi Oscar Under the Supervision of: Dr. Mustapha Ceja M.D. First contact with patient: 23:52 Chief Complaint: FALL Stated Complaint: FALL-HIT RT SIDE OF HEAD ON FIREPLACE TILES History of Present Illness The patient is a 87 year old male who presents to the Emergency Room with complaints of an accidental fall that occurred about 2 hours prior to arrival after the patient tripped on a rug and hit his head on a ceramic wall. He was brought to the Emergency Department by a neighbor. He denies feeling any pain, noting he is mostly concerned that he hit his head while taking blood thinners. The patient states that he is currently taking blood thinners, is normally on oxygen, and has a pace maker in place. He reports that he has been receiving one shot of Procrit weekly for possible anemia. Pt denies LOC, headache, visual changes, neck pain, chest pain, breathing difficulties, nausea, vomiting, abdominal pain, back pain, extremity pain, numbness, weakness, open wounds, active bleeding, or other complaints. Source of History: patient Onset: 2 hours prior to arrival Position: head Symptom Intensity: He denies having any pain Quality: other (trauma) Review of Systems See HPI for pertinent positives and negatives. A total of ten systems were reviewed and were otherwise negative. Past Medical & Surgical Medical Problems: (1) Atrial fibrillation (2) Benign hypertension (3) coronary bypass surgery (4) Diabetes mellitus (5) GERD (gastroesophageal reflux disease) (6) Heart disease (7) Hiatal hernia (8) Implantation of cardiac pacemaker (9) Kidney disease (10) Neck pain on right side (11) Pacemaker (12) Weakness Family History No significant family history Social History Smoking Status: Never Smoker Alcohol Use: occasionally Drug Use: none Marital Status: single Housing Status: lives alone Occupation Status: retired Current/Historical Medications Scheduled Apixaban (Eliquis), 5 MG PO AMPM Calcium W/ Vitamin D (Calcium), 1 TAB PO DAILY Coenzyme Q10 (Ubidecarenone) (Coenzyme Q-10), 200 MG PO DAILY Cyanocobalamin (Vitamin B-12), 1 TAB PO DAILY Digoxin (Digox), 0.125 MG PO DAILY Esomeprazole Magnesium (Nexium), 40 MG PO DAILY Ferrous Sulfate (Iron (Ferrous Sulfate)), 1 TAB PO BID Folic Acid (Folic Acid), 800 MCG PO DAILY Glipizide (Glipizide Er), 10 MG PO QAM Glipizide (Glipizide Er), 5 MG PO QPM Metoprolol Succinate (Metoprolol Succinate ER), 100 MG PO BID Montelukast Sodium (Singulair), 10 MG PO QPM Multivitamin (Multivitamin), 1 TAB PO DAILY Nitroglycerin (Nitrostat), 0.4 MG UT PRN Pioglitazone (Actos), 15 MG PO DAILY Ranitidine Hcl (Zantac), 300 MG PO UD Allergies Coded Allergies: Antihistamines, Diphenhydramine-typ (Verified Adverse Reaction, Intermediate, headaches, 09/24/17) Physical Exam Vital Signs Date Time Temp Pulse Resp B/P (MAP) Pulse Ox O2 Delivery O2 Flow Rate FiO2 10/29/17 01:42 78 20 128/70 98 10/28/17 23:42 36.7 70 24 145/92 96 Nasal Cannula 2.0 Physical Exam GENERAL: Awake, alert, well appearing, no acute distress HEAD: Contusion to right superior parietal area. Normocephalic, atraumatic. No miller sign. No raccoon eyes. EYES: Normal conjunctiva. PERRL. EARS: External ears normal. Right TM normal. Left TM normal. NOSE: Atraumatic OROPHARYNX: Lips, tongue, and mucosa unremarkable. No erythema or exudate. NECK: Supple. No nuchal rigidity. FROM. No tracheal deviation or JVD. No posterior midline tenderness. No step offs noted. RESPIRATORY: CTA bilaterally CARDIAC: Regular rate, normal rhythm. ABDOMEN: Inspection reveals no abnormalities. Soft, non distended. No tenderness to palpation. No hernias. BACK: No midline step offs or tenderness to palpation. Unremarkable. PELVIS: Stable to rock. SKIN: Normal. LYMPH: No adenopathy. MUSCULOSKELETAL: Upper and lower extremities are atraumatic. NEURO: GCS 15. Normal sensorium. No sensory or motor deficits noted. Medical Decision & Procedures ER Provider Diagnostic Interpretation: Radiology results as stated below per my review and radiologist interpretation: CT HEAD: Compared to CT 10/20/16. No intracranial hemorrhage or skull fracture. Mild scalp soft tissue swelling. Involutional changes and small vessel disease. Minimal sinus disease. Small mastoid fluid. Radiologist: Lien Mike, M.D. ED Course 2358: The patient was evaluated in room C8. A complete history and physical exam was performed. 0127: I reevaluated the patient. Discussed results and discharge instructions: He verbalized understanding and agreement. The patient is ready for discharge. Medical Decision Triage Nursing notes reviewed and agree them. The patient's history was concerning for traumatic head injury Differential diagnosis: Etiologies such as contusion, fracture, subdural hematoma, concussion, epidural hematoma, intraparenchymal hemorrhage, as well as other traumatic pathologies were entertained. Physical examination findings: As above. ER treatment provided: Patient declined analgesia On reassessment the patient felt better. Diagnostics interpreted by me: Imaging studies: CT scan as above It appears the patient has a minor closed head injury. He will hold his morning Eliquis and then resume as normal. I gave my usual and customary discussion regarding this issue. By the evaluation outlined above emergent etiologies such as fracture, subdural hematoma, epidural hematoma, intraparenchymal hemorrhage, as well as others were deemed relatively unlikely. The patient was informed about the findings as listed above. All questions were answered and he was pleased with the treatment. Return instructions were outlined and the patient was discharged in stable condition. Referral: The patient was referred back to his primary care physician for follow-up in 2 to 3 days for a recheck of the current condition. Head Trauma GCS Score: 15 Medication Reconcilliation Current Medication List: was personally reviewed by me Blood Pressure Screening Patient's blood pressure: Normal blood pressure Blood pressure disposition: Did not require urgent referral Impression Primary Impression: Fall Additional Impression: Closed head injury Scribe Attestation The scribe's documentation has been prepared under my direction and personally reviewed by me in its entirety. I confirm that the note above accurately reflects all work, treatment, procedures, and medical decision making performed by me. Departure Information Dispostion Home / Self-Care Referrals Callum Hampton M.D. (PCP) Forms HOME CARE DOCUMENTATION FORM, IMPORTANT VISIT INFORMATION Patient Instructions My [facility] Additional Instructions Rest and avoid strenuous activities for the next few days. Tylenol(acetaminophen) may be used for headaches. Use 1000mg every six hours as needed. Avoid using more than 4000mg in a 24 hour period. Avoid anti-inflammatories such as additional aspirin, ibuprofen, Alleve, naprosyn, Motrin, or Advil as these can interfere with blood clotting and lead to bleeding within the brain after a traumatic injury. Hold your morning Eliquis dose and then resume as directed. Follow-up with your primary care physician in 2 to 3 days for a recheck of your current condition. Problems could arise over the next 24 to 48 hours. You should not be left alone and MUST go to the hospital immediately if you: -Have a headache that suddenly gets worse. -Are very drowsy or cannot be woken up from sleep. -Can't recognize people or places. -Have repeated vomiting. -Behave unusually, seemed confused, or start acting irritable. -Have a seizure (arms and legs start jerking uncontrollably). -Have weak or numb arms or legs. -Are unsteady on your feet -Experience slurred speech or difficulty speaking. Problem Qualifiers
[2017-10-29 01:42] VITALS: BP 128/70; PULSE 78; O2SAT 98
--- NOTE | 2017-10-29 07:11 | DIAGNOSTIC IMAGING REPORT ---
CT SCAN OF THE BRAIN WITHOUT IV CONTRAST CLINICAL HISTORY: Fall with head injury. COMPARISON STUDY: CT of the brain dated 10/20/2016. TECHNIQUE: Unenhanced axial CT scan of the brain is performed from the vertex to the skull base. A dose lowering technique was utilized adhering to the principles of ALARA. CT DOSE: 614.27 mGy.cm FINDINGS: Brain parenchyma: There are age-related involutional changes noting mild subcortical and periventricular microangiopathic change. There is no hemorrhage, mass effect, or evidence of acute territorial ischemia by CT criteria. Michael-white matter is preserved. No extra-axial fluid collection is seen. Ventricles, sulci, cisterns: Prominent secondary to involutional change. Intracranial vasculature: There is atherosclerotic calcification of the cavernous carotid and vertebral arteries. Calvarium: The skeletal structures are osteopenic. No depressed calvarial fracture is seen. Sinuses and mastoids: The visualized paranasal sinuses are clear. There are small mastoid effusions. Orbits: The bony orbits are grossly intact. There are bilateral ocular lens implants. IMPRESSION: There is no hemorrhage, mass effect, or evidence of acute territorial ischemia by CT criteria. Electronically signed by: Star Laws M.D. 10/29/2017 7:10 AM Dictated Date/Time: 10/29/2017 7:08 AM
== END 2017-10-29 01:43 | disposition home or self-care (01) ==
LOC: C.EDB 23:35 → C.EDC 10-29 01:43
DX: S09.90XA Unspecified injury of head, initial encounter (principal); W01.198A Fall on same level from slipping, tripping and stumbling with subsequent striking against other object, initial encounter; I48.91 Unspecified atrial fibrillation; I10 Essential (primary) hypertension; E11.9 Type 2 diabetes mellitus without complications; K21.9 Gastro-esophageal reflux disease without esophagitis; Z95.0 Presence of cardiac pacemaker; Z79.01 Long term (current) use of anticoagulants; Z79.84 Long term (current) use of oral hypoglycemic drugs; Z87.19 Personal history of other diseases of the digestive system; Z88.8 Allergy status to other drugs, medicaments and biological substances

== ENCOUNTER → 2018-04-01 | Outpatient (CLI) | payer OTHER ==
[~2018-04-01] MED LIST changes: -FERR50TA3 PO; +IRON INFUSION IV
== END | disposition home or self-care (01) ==
LOC: C.LAB1850 08:41
PROVIDERS: ATTEND Internal Medicine
DX: E11.9 Type 2 diabetes mellitus without complications (principal)

== ENCOUNTER → 2018-04-09 | Outpatient (CLI) | payer OTHER ==
[2018-04-12 17:48] LABS: FECAL OCCULT BLOOD #1 POSITIVE (NEGATIVE); FECAL OCCULT BLOOD #2 POSITIVE (NEGATIVE); FECAL OCCULT BLOOD #3 POSITIVE (NEGATIVE)
== END | disposition home or self-care (01) ==
LOC: C.LABSPEC 17:02
PROVIDERS: ATTEND Internal Medicine
DX: K92.1 Melena (principal)